=== PATIENT | female | born 1960 | race Caucasian/White ===

== ENCOUNTER 2020-02-25 16:05 | Outpatient (REF) | payer OTHER, SELFPAY ==
--- NOTE | 2020-02-25 16:08 | XR_ITS ---
EXAMINATION: XR CHEST CLINICAL INFORMATION: 59-year-old female patient with chest pain. COMPARISON: Chest x-ray on 06/24/2019. (Normal). TECHNIQUE: PA and lateral erect views of the chest. FINDINGS: The heart remains normal in size. Pulmonary vascularity is normal. Lungs are clear showing no evidence of acute pulmonary parenchymal or pleural disease. IMPRESSION: No acute cardiopulmonary disease.
--- NOTE | 2020-02-25 16:15 | XR_ITS ---
EXAMINATION: XR SHOULDER, RIGHT XR ELBOW, RIGHT CLINICAL INFORMATION: Pain in right shoulder and elbow. COMPARISON: None TECHNIQUE: 3 views of the right shoulder. 3 views of the right elbow. FINDINGS: Right shoulder: There is a mildly impacted fracture of the surgical neck of the right humerus. Nondisplaced greater tuberosity fragment noted. The glenohumeral joint remains aligned, with mild inferior subluxation of the humeral head in relation to the glenoid. Osteophyte formation noted. The acromioclavicular joint is intact. The visualized lung is clear. The visualized ribs are intact. Right elbow: No fracture or dislocation. Alignment is anatomic. Joint spaces are maintained. Enthesophyte formation at the lateral humeral epicondyle. No elbow joint effusion. IMPRESSION: Mildly impacted right humeral neck fracture. No acute abnormality of the right elbow. Enthesophyte formation at the lateral humeral epicondyle. The report will be called to the ordering clinician by a [facility] Workflow Coordinator.
== END 2020-02-25 16:06 | disposition home or self-care (01) ==
LOC: HO.XRAY 16:05
PROVIDERS: PCP Internal Medicine; Visit Provider Nurse Practitioner Family
DX: R07.89 Other chest pain (principal); M25.511 Pain in right shoulder; M25.521 Pain in right elbow
CPT/HCPCS: 71046; 73030; 73080

== ENCOUNTER 2020-03-13 12:17 | Outpatient (REF) | payer OTHER, SELFPAY ==
--- NOTE | 2020-03-13 12:19 | XR_ITS ---
EXAMINATION: XR SHOULDER, RIGHT CLINICAL INFORMATION: Fracture of the shaft of the humerus. COMPARISON: 02/25/2020 TECHNIQUE: Three views of the right shoulder. FINDINGS: Redemonstration of the right humeral neck comminuted fracture. Alignment is unchanged from prior. Fracture lines remain evident. No significant callus formation. The glenohumeral joint is well aligned with small osteophytes. Acromioclavicular joint is intact. The visualized ribs are intact. The visualized lung is clear. XR/XR shoulder RT min 2V IMPRESSION: Unchanged alignment of the right humeral neck fracture. Fracture lines remain evident.
== END 2020-03-13 12:18 | disposition home or self-care (01) ==
LOC: HO.HOSX 12:17
PROVIDERS: Visit Provider Orthopaedic Surgery
DX: S42.309A Unspecified fracture of shaft of humerus, unspecified arm, initial encounter for closed fracture (principal); F17.200 Nicotine dependence, unspecified, uncomplicated; Z79.899 Other long term (current) drug therapy
CPT/HCPCS: 73030

== ENCOUNTER 2020-03-27 16:05 | Outpatient (REF) | payer OTHER, SELFPAY ==
--- NOTE | 2020-03-27 16:13 | CT_ITS ---
EXAMINATION: CT CHEST SCREENING CLINICAL INFORMATION: CT chest 03/22/2019 COMPARISON: None. TECHNIQUE: Multidetector volumetric CT imaging of the chest is performed without contrast using low dose technique. Additional 2D coronal and sagittal reformatted images and axial 3D maximum intensity projection (MIP) images are generated on the CT workstation. This CT examination was performed using dose optimization techniques as appropriate, variously including the following: *Automated exposure control *Adjustment of mA and/or kV according to patient size (this includes techniques or standardized protocols for targeted exams where dose is matched to indication/reason for exam; i.e. extremities or head) *Use of iterative reconstruction technique DLP: 69 mGy-cm FINDINGS: LUNGS: There are multiple pulmonary nodules. The largest pulmonary nodule right upper lobe posterior segment pleural-based measures 5 mm axial image 122/6, stable, there is a 4 mm nodule pleural-based right upper lobe laterally measures 4 mm on axial image 162/6, previously measured 3 mm. There is a 4 mm nodule right lower lobe medial pleural-based image 270/16, previously measured 3 mm. There is a 4 mm largest pulmonary nodule left lower lobe subpleural-based image 352/6, previously measured 3 mm. No large mass or consolidation seen. There is mild paraseptal emphysema. The thyroid lobes are symmetrical and normal. The central trachea and bronchi are widely patent. MEDIASTINUM: Heart size and the great vessels are normal caliber. No pericardial effusion seen. No mass or lymphadenopathy seen. Central trachea and the bronchi widely patent. PLEURA: There is no pleural effusion. No pleural mass or thickening. AXILLA: There are bilateral small shotty lymph nodes. UPPER ABDOMEN: Visualized liver, spleen, pancreas unremarkable. There is a left adrenal 2.4 x 2.1 cm lesion measuring 18 Hounsfield units. OSSEOUS STRUCTURES: No lytic or sclerotic process seen. CT/CT lung screening IMPRESSION: Multiple pulmonary nodules. Some of the nodules appear minimally larger measuring 4 mm that compared to 3 mm. ASSESSMENT: Lung-RADS category 2: Benign RECOMMENDATION: Annual low dose chest CT follow-up.
[2020-03-27 17:03] LABS: Glucose Urine UA NEG (NEG); Leukocyte Esterase Urine NEG (NEG); MANUAL DIFF FLAG NO; Nitrite Urine NEG (NEG); Urine Blood TRACE (NEG); Urine Ketones NEG (NEG); Urine Protein NEG (NEG-TRACE)
[2020-03-27 17:05] LABS: Basophils Percent Auto 0.3 % (0-2); Eosinophils Absolute Auto 0.1 X10*3/uL (0.0-0.4); Eosinophils Percent Auto 1.5 % (0-4); Hematocrit 36.7 % (37-47); Hemoglobin 12.2 g/dl (12.0-16.0); Imm Gran Abs Auto 0.02 X10*3/uL (0.00-0.03); Imm Gran Pct Auto 0.3 % (0.0-0.4); Lymphocytes Absolute Auto 2.2 X10*3/uL (1.2-4.9); Lymphocytes Percent Auto 28.9 % (20-40); Mean Corpuscular HGB Conc 33.2 g/dl (31.0-35.0); Mean Corpuscular Volume 90.4 fL (80-98); Mean Platelet Volume 9.3 fL (9.4-12.3); Monocytes Absolute Auto 0.5 X10*3/uL (0.1-1.2); Monocytes Percent Auto 7.2 % (2-11); Neutrophils Absolute Auto 4.7 X10*3/uL (2.0-8.3); Neutrophils Percent Auto 61.8 % (45-73); Platelet Count 311 X10*3/uL (160-400); Red Blood Count 4.06 X10*6/uL (4.20-5.50); Red Cell Distribution Width 13.3 % (11.0-16.0); White Blood Count 7.5 X10*3/uL (4.8-10.8)
[2020-03-27 17:14] LABS: Appearance Urine CLEAR; Color Urine YELLOW
[2020-03-27 17:25] LABS: Alanine Aminotransferase 15 U/L (0-31); Albumin Level 4.5 g/dL (3.5-5.0); Alkaline Phosphatase 150 U/L (39-117); Anion Gap 15 (12-20); Aspartate Amino Transferase 16 U/L (5-31); Bilirubin Total 0.5 mg/dL (0.0-1.0); Blood Urea Nitrogen 14 mg/dL (9-16); Calcium 8.8 mg/dL (8.4-10.2); Carbon Dioxide 23 mmol/L (22-29); Chloride 107 mmol/L (96-108); Cholesterol 204 mg/dL; Estimated Glomerular Filt Rate > 60; Glucose Fasting 84 mg/dL (60-99); HDL Cholesterol 45 mg/dL; LDL Cholesterol Calculated 134 mg/dl; Potassium 3.9 mmol/l (3.3-5.1); Sodium 141 mmol/L (135-145); Total Protein 7.1 g/dL (6.5-8.0); Triglycerides 127 mg/dL
[2020-03-27 17:39] LABS: Bacteria Urine TRACE /LPF; RBC Urine 0-2 /HPF (0); Squamous Epithelial Cell Urine TRACE /LPF; WBC Urine 0-2 /HPF (0-4)
[2020-03-27 17:46] LABS: Thyroid Stimulating Hormone 1.71 uIU/mL (0.32-4.0)
== END 2020-03-27 16:06 | disposition home or self-care (01) ==
LOC: HO.CT 16:05
PROVIDERS: Absent Provider Internal Medicine; PCP Internal Medicine; Visit Provider Surgery
DX: Z00.00 Encounter for general adult medical examination without abnormal findings (principal); I10 Essential (primary) hypertension; E78.00 Pure hypercholesterolemia, unspecified; K21.9 Gastro-esophageal reflux disease without esophagitis; J45.30 Mild persistent asthma, uncomplicated; F17.210 Nicotine dependence, cigarettes, uncomplicated
CPT/HCPCS: 36415; 71250; 80053; 80061; 81001; 82306; 84443; 85025

== ENCOUNTER → 2020-06-11 10:24 | Outpatient (BNVA) | payer OTHER, SELFPAY | PROVIDERS: PCP Internal Medicine; Visit Provider Internal Medicine Gastroenterology ==

== ENCOUNTER 2020-07-03 10:10 | Day surgery (SDC) | payer OTHER, SELFPAY ==
--- NOTE | 2020-07-01 15:02 | HO.ANESPROP2 ---
Documented by User: Shanell Hernandez 07/01/20 15:03 HPI - Anesthesia Eval Consult details Narrative: 59yo F for Upper Endoscopy with Balloon Dilitation PMFSH Active Problems Active Problems: All Active Problems (Updated 06/29/20 @ 14:44 by Stephanie Cohen) Midsternal chest pain (Acute) Elbow pain, right (Acute) Shoulder pain, right (Acute) Humeral fracture (Acute) GERD without esophagitis (Acute) Esophageal dysphagia (Acute) Schatzki's ring (Acute) Past Medical History Medical History Arthritis Asthmatic bronchitis Depression Former smoker GERD (gastroesophageal reflux disease) Hiatal hernia Hx of fracture of tibia Hyperlipidemia Hypertension Kidney stones PONV (postoperative nausea and vomiting) PUD (peptic ulcer disease) Pulmonary nodule Schatzki's ring Surgical History Surgical History History of breast lump/mass excision History of hemorrhoidectomy History of tubal ligation Hx of colonoscopy Hx of esophagogastroduodenoscopy Social History Social History Household Members: Spouse Alcohol intake: current Alcohol intake frequency: holidays/special occasions only Smoking Status: Current every day smoker Cigarettes Per Day: 5 Years Smoked: 40 Smoked in Last 30 Days: Yes Patient Interested in Nicotine Replacement: No Use of substances other than those prescribed or required for medical reasons: Yes Substance Use Type: Marijuana Advance Directives: No Advance Directives Information Provided: No Current occupational status: unemployed Current occupation: Right [employer]ed Meds Allergies Allergy/AdvReac Type Severity Reaction Status Date / Time aspirin [ASA] Allergy Intermediate GI UPSET Verified 06/29/20 14:33 Home Medications Medication Instructions Recorded Confirmed Last Taken Type ibuprofen 800 mg tablet 800 mg PO TID 02/25/20 06/29/20 Unknown History lisinopril 10 mg tablet 10 mg PO DAILY 02/25/20 06/29/20 Unknown History trazodone 50 mg tablet 50 mg PO BEDTIME 02/25/20 06/29/20 Unknown History clotrimazole-betamethasone 1 1 applic TOPICAL BID PRN 03/13/20 06/29/20 Unknown History %-0.05 % topical cream pantoprazole 40 mg tablet,delayed mg PO 06/11/20 06/11/20 07/03/20 07:30 History release Symbicort 07/03/20 07/03/20 Unknown History Exam Exam Date and Time: July 01, 2020 1502 Pertinent Lab Results Pertinent Lab Results: Laboratory Tests 03/27/20 03/27/20 16:36 16:36 WBC 7.5 Hgb 12.2 Hct 36.7 L Plt Count 311 Sodium 141 Potassium 3.9 Chloride 107 Carbon Dioxide 23 BUN 14 Creatinine 0.72 Assessment and Plan Assessment Anesthesia Assessment: Chart Reviewed Documented by User: Rajeev Contreras MD 07/03/20 10:57 PMFSH Past Medical History Medical History Arthritis Asthmatic bronchitis Depression Former smoker GERD (gastroesophageal reflux disease) Hiatal hernia Hx of fracture of tibia Hyperlipidemia Hypertension Kidney stones PONV (postoperative nausea and vomiting) PUD (peptic ulcer disease) Pulmonary nodule Schatzki's ring Surgical History Surgical History History of breast lump/mass excision History of hemorrhoidectomy History of tubal ligation Hx of colonoscopy Hx of esophagogastroduodenoscopy Social History Social History Household Members: Spouse Alcohol intake: current Alcohol intake frequency: holidays/special occasions only Smoking Status: Current every day smoker Cigarettes Per Day: 5 Years Smoked: 40 Smoked in Last 30 Days: Yes Patient Interested in Nicotine Replacement: No Use of substances other than those prescribed or required for medical reasons: Yes Substance Use Type: Marijuana Advance Directives: No Advance Directives Information Provided: No Current occupational status: unemployed Current occupation: Right Handed Meds Allergies Allergy/AdvReac Type Severity Reaction Status Date / Time aspirin [ASA] Allergy Intermediate GI UPSET Verified 06/29/20 14:33 Home Medications Medication Instructions Recorded Confirmed Last Taken Type ibuprofen 800 mg tablet 800 mg PO TID 02/25/20 06/29/20 Unknown History lisinopril 10 mg tablet 10 mg PO DAILY 02/25/20 06/29/20 Unknown History trazodone 50 mg tablet 50 mg PO BEDTIME 02/25/20 06/29/20 Unknown History clotrimazole-betamethasone 1 1 applic TOPICAL BID PRN 03/13/20 06/29/20 Unknown History %-0.05 % topical cream pantoprazole 40 mg tablet,delayed mg PO 06/11/20 06/11/20 07/03/20 07:30 History release Symbicort 07/03/20 07/03/20 Unknown History Exam Airway Mallampati Class: III TM Dist: >3cm Neck ROM: Full Loose/Missing/Broken Teeth: Yes (Left incisor broken, poor dentition, mosty missing teeth) Heart: Sinus tach Lungs: NL Assessment and Plan Assessment Anesthesia Assessment: Anesthesia Plan Discussed (SBP 180/90; 170/80 after anxiolysis. Counseled pt regarding risk of [place], stroke; wants to proceed), Smoking Cess. Discussed and Chart Reviewed Final Anesthetic Review NPO: Yes ASA Class: III Final Preanesthetic Review: No Changes in Pt Med Stat, Meds/Allgs Chart Reviewed, Consent Obtained/Reviewed and Anes Risks/Benef Reviewed Patient Risk: High Procedure Risk: Low Anesthetic Plan Anesthetic Plan: MAC: Disposition: Standard PACU
--- NOTE | 2020-07-03 10:40 | P.OP_ITS ---
Operative Note Operative Note Date of Service: 07/03/20 Narrative: Pre-op diagnosis: Dysphagia, history of Schatzki's ring Post-op diagnosis: same Procedure: FLEXIBLE TRANSORAL UPPER GASTROINTESTINAL ENDOSCOPY WITH BIOPSY AND ESOPHAGEAL BALLOON DILATION Consent: Indications for the procedure and potential complications of bleeding, perforation, reaction to medications and missed diagnosis were discussed with the patient and informed consent was obtained. Instrument: Olympus GIF H 190 mid size upper endoscope Monitoring: Vital signs and clinical assessment, continuous EKG monitoring, Pulse oximetry, Carbon Dioxide monitoring and blood pressure monitoring were done throughout the procedure. Procedure: The patient was placed in the left lateral decubitis position and pre-procedure medications were administered and a bite block was placed. The endoscope was inserted into the mouth and advanced under direct vision to the third part of duodenum. A careful inspection was made as the upper endoscope was withdrawn including a retroflexed examination of the proximal stomach; Findings and interventions are described below. Findings: Larynx: Normal Esophagus: Tortuous esophagus with increased tertiary contractions. GE junction at 32 cms, hiatal hernia 32 to 35 cms. A partially obstructing Schatzki's ring at GE junction - dilated with 19 and 20 mm (60 F) with a CRE balloon - for 60 seconds at each level. Biopsies were obtained from the area of the ring to help disrupt the Schatzki's ring. Stomach: Mild gastric erythema with scattered antral erosions - (biopsied during previous EGD). Grade 3 flap valve on retroflexed examination of the cardia. Duodenum: Normal bulb and descending duodenum Intervention: Esophageal dilation was performed with a CRE balloon at 19 and 20 mm for 60 seconds at each level. Biopsies as noted above Impression and Post Procedure Diagnosis: Endoscopy Findings: ESOPHAGUS: Tortuous esophagus with increased tertiary contractions. GE junction at 32 cms, hiatal hernia 32 to 35 cms. A partially obstructing Schatzki's ring at GE junction - dilated to 20 mm (60 F) with a CRE balloon. STOMACH: Antral gastritis with erosions. Plan: Await pathology results Patient has an appointment on 07/20/20 in the GI Clinic with Dionte Canales M.D.- . Above findings were reviewed with the patient and GERD handout was given in the discharge area Surgeon: Dionte Canales MD Anesthesia: MAC (Dr Contreras) Estimated blood loss (mL): 0 Pathology: other (A. Distal esophagus) Condition: stable Disposition: PACU
--- NOTE | 2020-07-03 10:40 | MHC.SHP ---
Pre-Procedural Eval Section A The patient is an INPATIENT: No The History & Physical has been completed within 30 days and I have reviewed it.: Yes Section B Chief Complaint: dysphagia Details of Present Illness: dysphagia Allergies: Allergies Allergy/AdvReac Type Severity Reaction Status Date / Time aspirin [ASA] Allergy Intermediate GI UPSET Verified 06/29/20 14:33 Review of Systems Sugical H&P ROS: Negative: Constitution and Cardiovascular and Yes, Specify: Respiratory (Cough) and Gastrointestinal (Dysphagia) Exam Surgical H&P Exam: Normal: Heart, Normal: Lungs, Normal: Extremities and Normal: Abdomen Plan Diagnosis/Plan: Unchanged I have reviewed the history and physical and performed a pertinent physical examination on my patient. No changes have occurred unless specified.
[2020-07-03 10:41] VITALS: BP 174/96; PULSE 94; RESP 16; TEMP 36.4; O2SAT 98; BMI 34.0
[2020-07-03] MEDS: Lactated Ringers 1,000 ML 100 ML IVCONT (10:51)
[2020-07-03 11:25] VITALS: BP 137/78; PULSE 89; RESP 16; TEMP 36.1; O2SAT 96
[2020-07-03 11:40] VITALS: BP 161/84; PULSE 84; RESP 18; TEMP 36.2; O2SAT 98
== END 2020-07-03 12:00 | disposition home or self-care (01) ==
PROVIDERS: PCP Internal Medicine; Visit Provider Internal Medicine Gastroenterology
PROC: (CPT 43249; principal; 2020-07-03 11:50)
DX: K22.2 Esophageal obstruction (principal); K29.70 Gastritis, unspecified, without bleeding; K25.9 Gastric ulcer, unspecified as acute or chronic, without hemorrhage or perforation; K44.9 Diaphragmatic hernia without obstruction or gangrene; K21.9 Gastro-esophageal reflux disease without esophagitis; J45.909 Unspecified asthma, uncomplicated; I10 Essential (primary) hypertension; R91.1 Solitary pulmonary nodule; Z88.8 Allergy status to other drugs, medicaments and biological substances; Z79.899 Other long term (current) drug therapy; Z87.891 Personal history of nicotine dependence
CPT/HCPCS: 43249; 43239; 88305; C1726; J2250

== ENCOUNTER → 2020-07-20 10:23 | Outpatient (BNVA) | payer OTHER, SELFPAY | PROVIDERS: PCP Internal Medicine; Visit Provider Internal Medicine Gastroenterology ==

== ENCOUNTER 2020-08-11 09:22 | Day surgery (SDC) | payer OTHER, SELFPAY ==
[2020-08-05 13:40] VITALS: BMI 34.9
--- NOTE | 2020-08-10 09:41 | P.CONAN_ITS ---
Documented by User: Shanell Hernandez 08/10/20 09:43 HPI - Anesthesia Eval Consult details Narrative: 59yo F for Upper Endoscopy with Balloon Dilation s/p EGD with dilation 06/2020 with MAC [facility] Active Problems Active Problems: All Active Problems (Updated 06/29/20 @ 14:44 by Stephanie Cohen) Midsternal chest pain (Acute) Elbow pain, right (Acute) Shoulder pain, right (Acute) Humeral fracture (Acute) GERD without esophagitis (Acute) Esophageal dysphagia (Acute) Schatzki's ring (Acute) Past Medical History Medical History Arthritis Asthmatic bronchitis Depression Former smoker GERD (gastroesophageal reflux disease) Hiatal hernia Hx of fracture of tibia Hyperlipidemia Hypertension Kidney stones PONV (postoperative nausea and vomiting) PUD (peptic ulcer disease) Pulmonary nodule Schatzki's ring Family History Family History Mother HTN (hypertension) COPD (chronic obstructive pulmonary disease) Surgical History Surgical History History of breast lump/mass excision History of hemorrhoidectomy History of tubal ligation Hx of colonoscopy Hx of esophagogastroduodenoscopy Social History Social History Household Members: Spouse Alcohol intake: current Alcohol intake frequency: a few times a week Smoking Status: Current every day smoker Tobacco Type: Cigarette Cigarettes Per Day: 6 Years Smoked: 40 Substance Use Type: Marijuana Advance Directives: No Advance Directives Information Provided: No Advance Directives on File: No Current occupational status: unemployed Current occupation: Right [employer] Meds Allergies Allergy/AdvReac Type Severity Reaction Status Date / Time aspirin [ASA] Allergy Intermediate GI UPSET Verified 07/20/20 10:24 Home Medications Medication Instructions Recorded Confirmed Last Taken Type ibuprofen 800 mg tablet 800 mg PO TID 02/25/20 08/05/20 Unknown History lisinopril 10 mg tablet 10 mg PO DAILY 02/25/20 08/05/20 08/11/20 History trazodone 50 mg tablet 50 mg PO BEDTIME 02/25/20 08/05/20 Unknown History clotrimazole-betamethasone 1 1 applic TOPICAL BID PRN 03/13/20 08/05/20 Unknown History %-0.05 % topical cream pantoprazole 40 mg tablet,delayed mg PO 06/11/20 07/20/20 08/11/20 History release budesonide-formoterol [Symbicort] 2 puff INHALATION BID 08/05/20 08/05/20 Unknown History Exam Exam Date and Time: August 10, 2020940 Height,Weight and Vital Signs: Height 5 ft Weight 81 kg Assessment and Plan Assessment Anesthesia Assessment: Chart Reviewed Documented by User: Anna Mckoy 08/11/20 11:09 [facility] Past Medical History Medical History Arthritis Asthmatic bronchitis Depression Former smoker GERD (gastroesophageal reflux disease) Hiatal hernia Hx of fracture of tibia Hyperlipidemia Hypertension Kidney stones PONV (postoperative nausea and vomiting) PUD (peptic ulcer disease) Pulmonary nodule Schatzki's ring Family History Family History Mother HTN (hypertension) COPD (chronic obstructive pulmonary disease) Surgical History Surgical History History of breast lump/mass excision History of hemorrhoidectomy History of tubal ligation Hx of colonoscopy Hx of esophagogastroduodenoscopy Social History Social History Household Members: Spouse Alcohol intake: current Alcohol intake frequency: a few times a week Smoking Status: Current every day smoker Tobacco Type: Cigarette Cigarettes Per Day: 6 Years Smoked: 40 Substance Use Type: Marijuana Advance Directives: No Advance Directives Information Provided: No Advance Directives on File: No Current occupational status: unemployed Current occupation: Right [employer] Meds Allergies Allergy/AdvReac Type Severity Reaction Status Date / Time aspirin [ASA] Allergy Intermediate GI UPSET Verified 07/20/20 10:24 Home Medications Medication Instructions Recorded Confirmed Last Taken Type ibuprofen 800 mg tablet 800 mg PO TID 02/25/20 08/05/20 Unknown History lisinopril 10 mg tablet 10 mg PO DAILY 02/25/20 08/05/20 08/11/20 History trazodone 50 mg tablet 50 mg PO BEDTIME 02/25/20 08/05/20 Unknown History clotrimazole-betamethasone 1 1 applic TOPICAL BID PRN 03/13/20 08/05/20 Unknown History %-0.05 % topical cream pantoprazole 40 mg tablet,delayed mg PO 06/11/20 07/20/20 08/11/20 History release budesonide-formoterol [Symbicort] 2 puff INHALATION BID 08/05/20 08/05/20 Unknown History Exam Airway Mallampati Class: II TM Dist: >3cm Neck ROM: Full Loose/Missing/Broken Teeth: Yes Assessment and Plan Assessment Anesthesia Assessment: Anesthesia Plan Discussed and Chart Reviewed Final Anesthetic Review NPO: Yes ASA Class: III Final Preanesthetic Review: No Changes in Pt Med Stat, Meds/Allgs Chart Reviewed, Consent Obtained/Reviewed and Anes Risks/Benef Reviewed Patient Risk: Intermediate Procedure Risk: Low Assessment/Block/Sedation in SS: Assess/Block/Sedation-SS Anesthetic Plan Anesthetic Plan: MAC: Disposition: Standard PACU
[2020-08-11] MEDS: Lactated Ringers 1,000 ML 100 ML IVCONT (09:43)
[2020-08-11 09:47] VITALS: BP 194/89; PULSE 98; RESP 20; TEMP 37.1; O2SAT 98
--- NOTE | 2020-08-11 10:28 | P.OP_ITS ---
Operative Note Operative Note Date of Service: 08/11/20 Narrative: Pre-op diagnosis: Dysphagia, suspected persistent/recurrent Schatzki's ring post balloon dilation, Post-op diagnosis: other (Esophageal motility disorder, gastritis) Procedure: FLEXIBLE TRANSORAL UPPER GASTROINTESTINAL ENDOSCOPY WITH ESOPHAGEAL DILATION OVER A GUIDE WIRE Consent: Indications for the procedure and potential complications of bleeding, perforation, reaction to medications and missed diagnosis were discussed with the patient and informed consent was obtained. Instrument: Olympus GIF H 190 mid size upper endoscope Monitoring: Vital signs and clinical assessment, continuous EKG monitoring, Pulse oximetry, Carbon Dioxide monitoring and blood pressure monitoring were done throughout the procedure. Procedure: The patient was placed in the left lateral decubitis position and pre-procedure medications were administered and a bite block was placed. The endoscope was inserted into the mouth and advanced under direct vision to the third part of duodenum. A careful inspection was made as the upper endoscope was withdrawn including a retroflexed examination of the proximal stomach; Findings and interventions are described below. Findings: Larynx: Normal Esophagus: GE junction at 32 cms, hiatal hernia 32 to 35 cms. No Schatzki's ring was visualized.. Dilation was performed with a 20 mm savory dilator with moderate resistance on passage of the dilator. Stomach: Mild gastric erythema. Biopsies were obtained. Grade 2 flap valve on retroflexed examination of the cardia. Duodenum: Normal bulb and descending duodenum Intervention: Biopsies and esophageal dilation with a savory dilator to 20 mm (60 F) as noted above Impression and Post Procedure Diagnosis: Endoscopy Findings: ESOPHAGUS: GE junction at 32 cms, hiatal hernia 32 to 35 cms. No Schatzki's ring was visualized - likely ruptured with balloon dilation during the previous EGD. Empiric dilation was performed with a 20 mm savory dilator with moderate resistance on passage of the dilator. STOMACH: Gastritis Plan: Await pathology results Patient has an appointment on 08/13/20 in the GI Clinic with Dionte Canales M.D. Above findings were reviewed with the patient and handout on Chronic Dysphagia was given in the discharge area Surgeon: Dionte Canales MD Anesthesia: MAC (Irene Castelan) Oncology Technician: Mabel Javier Estimated blood loss (mL): 0 Pathology: none sent Condition: stable Disposition: PACU
--- NOTE | 2020-08-11 10:28 | MHC.SHP ---
Pre-Procedural Eval Section A The patient is an INPATIENT: No Changes since office visit: Yes Patient answered all questions; No Cold of Flu in the past 2 weeks, No New Medical Problems and No Changes in Medication The History & Physical has been completed within 30 days and I have reviewed it.: Yes Section B Chief Complaint: Dysphagia Allergies: Allergies Allergy/AdvReac Type Severity Reaction Status Date / Time aspirin [ASA] Allergy Intermediate GI UPSET Verified 07/20/20 10:24 Review of Systems Sugical H&P ROS: Negative: Cardiovascular and Respiratory and Yes, Specify: Gastrointestinal (Dysphagia) Exam Surgical H&P Exam: Normal: Heart, Normal: Lungs, Normal: Extremities and Normal: Abdomen Plan Diagnosis/Plan: Unchanged I have reviewed the history and physical and performed a pertinent physical examination on my patient. No changes have occurred unless specified.
[2020-08-11 12:03] VITALS: BP 144/68; PULSE 74; RESP 16; TEMP 36.3; O2SAT 100
[2020-08-11] MEDS: Albuterol Sulfate (0.083%) 2.5 MG/3 ML VIAL.NEB INHALE (12:14)
[2020-08-11 12:15] VITALS: PULSE 72; O2SAT 100
[2020-08-11 12:21] VITALS: BP 161/68; PULSE 73; RESP 16; O2SAT 98
== END 2020-08-11 12:49 | disposition home or self-care (01) ==
PROVIDERS: PCP Internal Medicine; Visit Provider Internal Medicine Gastroenterology
PROC: (CPT 43248; principal; 2020-08-11 11:00)
DX: K22.4 Dyskinesia of esophagus (principal); K29.50 Unspecified chronic gastritis without bleeding; K44.9 Diaphragmatic hernia without obstruction or gangrene; K21.9 Gastro-esophageal reflux disease without esophagitis; K27.9 Peptic ulcer, site unspecified, unspecified as acute or chronic, without hemorrhage or perforation; I10 Essential (primary) hypertension; J45.909 Unspecified asthma, uncomplicated; R91.1 Solitary pulmonary nodule; Z87.891 Personal history of nicotine dependence; Z79.51 Long term (current) use of inhaled steroids; Z79.899 Other long term (current) drug therapy
CPT/HCPCS: 43248; 94640; C1769; J3010

== ENCOUNTER → 2020-08-13 11:56 | Outpatient (BNVA) | payer OTHER, SELFPAY | PROVIDERS: PCP Internal Medicine; Visit Provider Internal Medicine Gastroenterology ==

== ENCOUNTER 2020-10-30 07:07 | Day surgery (SDC) | payer OTHER, SELFPAY ==
[2020-10-26 08:38] VITALS: BMI 34.9
[2020-10-30 07:28] VITALS: BP 129/72; PULSE 105; RESP 18; TEMP 37.1; O2SAT 98
--- NOTE | 2020-10-30 07:35 | P.OP_ITS ---
Operative Note Operative Note Date of Service: 10/30/20 Narrative: Pre-op diagnosis: Colon cancer screening, history of colon polyps Post-op diagnosis: other (Colon polyps, diverticulosis, hemorrhoids) Procedure: COLONOSCOPY TILL CECUM WITH BIOPSIES AND SNARE POLYPECTOMY Consent: Indications for the procedure and potential complications of bleeding, perforation, reaction to medications and missed diagnosis were discussed with the patient and informed consent was obtained. Instrument: Olympus PCF H 190 L variable stiffness pediatric colonoscope Monitoring: Vital signs and clinical assessment, intermittent blood pressure monitoring, continuous EKG monitoring, Pulse oximetry and Carbon Dioxide monitoring were done throughout the procedure. Colon withdrawl time was 25 minutes. Procedure: The patient was placed in the left lateral decubitis position and pre-procedure medications were administered. After a digital rectal examination of the ano-rectum, the video colonoscope was inserted into the rectum and advanced through the colon to the cecum. The colonoscope was slowly withdrawn in a retrograde panoramic fashion and the colon mucosa was carefully examined including a retroflexed view of the rectum. Findings and interventions are described below. Procedure Difficulty: Without difficulty Findings: Terminal Ileum: Not evaluated Cecum: Normal Ascending Colon: A 10 mm sessile polyp in the proximal ascending colon removed with a cold snare - polyp was not retrieved Transverse Colon: A 12-15 mm sessile polyp removed with a hot snare Descending Colon: Moderate diverticulosis Sigmoid Colon: A 10 mm diminutive appearing polyp which was biopsied. A 12-15 mm sessile polyp removed with a hot snare. Severe diverticulosis with luminal narrowing. Rectum: Normal Ano-rectum: Small internal hemorrhoids Colon preparation: Good after copious irrigation. Impression and Post Procedure Diagnosis: Colonoscopy Findings: Three polyps removed - one polyp not retrieved. A diminutive appearing polyp biopsied in the sigmoid colon. Moderate to severe diverticulosis seen in the left colon Small hemorrhoids on retroflexed exam. Plan: Await pathology results Patient has an appointment on 11/12/20 in the GI Clinic with Dionte Canales M.D.. Repeat Colonoscopy interval based on path results - in 3 years if polyps are adenomatous and due to a history of adenomatous colon polyps. Above findings were reviewed with the patient and colon polyps and diverticulosis handouts were given in the discharge area Surgeon: Dionte Canales MD Anesthesia: MAC (Karen Dacosta CRNA) Was an Survey And Mapping Technician used for this Procedure?: Yes Survey And Mapping Technician: Reshma Powell Estimated blood loss (mL): 0 Pathology: other (A- TRANSVERSE COLON POLYP B- SIGMOID COLON POLYP C- SIGMOID COLON POLYP AT 20CMS) Condition: stable Disposition: PACU
--- NOTE | 2020-10-30 07:35 | MHC.SHP ---
Pre-Procedural Eval Section A Date of Service: 10/30/20 The patient is an INPATIENT: No The History & Physical has been completed within 30 days and I have reviewed it.: No Section B Chief Complaint: Screening Details of Present Illness: colon cancer screening Relevant Family History (Specify if Yes): No Relevant Social History: Tobacco Use Present Medications: see Short Stay Collaborative assessment Medical History: Significant History (Arthritis Asthmatic bronchitis Depression Former smoker GERD (gastroesophageal reflux disease) Hiatal hernia Hx of fracture of tibia Hyperlipidemia Hypertension Kidney stones PONV (postoperative nausea and vomiting) PUD (peptic ulcer disease) Pulmonary nodule Schatzki's ring) History of Previous Operations: Relevant previous surgery/procedure and date(s) (H/O endoscopy History of breast lump/mass excision History of hemorrhoidectomy History of tubal ligation Hx of colonoscopy Hx of esophagogastroduodenoscopy) Allergies: Allergies Allergy/AdvReac Type Severity Reaction Status Date / Time aspirin [ASA] Allergy Intermediate GI UPSET Verified 10/30/20 07:27 Review of Systems Sugical H&P ROS: Negative: Constitution, Cardiovascular and Respiratory and Yes, Specify: Gastrointestinal (dysphagia) Exam Surgical H&P Exam: Normal: Heart, Normal: Lungs, Normal: Extremities and Normal: Abdomen Plan Diagnosis/Plan: Unchanged I have reviewed the history and physical and performed a pertinent physical examination on my patient. No changes have occurred unless specified.
--- NOTE | 2020-10-30 07:49 | HO.ANESPROP2 ---
[facility] Active Problems Active Problems: All Active Problems (Updated 08/13/20 @ 13:21 by Dionte Canales MD) Midsternal chest pain (Acute) Elbow pain, right (Acute) Shoulder pain, right (Acute) Humeral fracture (Acute) GERD without esophagitis (Acute) Esophageal dysphagia (Acute) Schatzki's ring (Acute) Colon cancer screening (Acute) Past Medical History Medical History Arthritis Asthmatic bronchitis Depression Former smoker GERD (gastroesophageal reflux disease) Hiatal hernia Hx of fracture of tibia Hyperlipidemia Hypertension Kidney stones PONV (postoperative nausea and vomiting) PUD (peptic ulcer disease) Pulmonary nodule Schatzki's ring Family History Family History Mother HTN (hypertension) COPD (chronic obstructive pulmonary disease) Surgical History Surgical History H/O endoscopy History of breast lump/mass excision History of hemorrhoidectomy History of tubal ligation Hx of colonoscopy Hx of esophagogastroduodenoscopy Social History Social History Household Members: Spouse Alcohol intake: current Alcohol intake frequency: a few times a week Patient Tobacco Use Status: Former Tobacco user Cigarettes Per Day: 6 Years Smoked: 40 Use of substances other than those prescribed or required for medical reasons: Yes Substance Use Type: Marijuana Are you DNR?: No Advance Directives: No Advance Directives Information Provided: Yes Current occupational status: unemployed 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 occupation: Right Handed Meds Allergies Allergy/AdvReac Type Severity Reaction Status Date / Time aspirin [ASA] Allergy Intermediate GI UPSET Verified 10/30/20 07:27 Home Medications Medication Instructions Recorded Confirmed Last Taken Type ibuprofen 800 mg tablet 800 mg PO TID 02/25/20 10/26/20 Unknown History lisinopril 10 mg tablet 10 mg PO DAILY 02/25/20 10/26/20 08/11/20 History trazodone 50 mg tablet 50 mg PO BEDTIME 02/25/20 10/26/20 Unknown History clotrimazole-betamethasone 1 1 applic TOPICAL BID PRN 03/13/20 10/26/20 Unknown History %-0.05 % topical cream pantoprazole 40 mg tablet,delayed 40 mg PO DAILY 06/11/20 10/26/20 10/30/20 04:45 History release budesonide-formoterol [Symbicort] 2 puff INHALATION BID 08/05/20 10/26/20 Unknown History cholecalciferol (vitamin D3) 50 50 mcg PO DAILY 08/13/20 10/26/20 Unknown History mcg (2,000 unit) capsule Exam Exam Date and Time: October 30, 2020 0749 Height,Weight and Vital Signs: Height 5 ft Weight 81 kg Last Vital Signs Temp 98.8 F 10/30/20 07:28 Pulse 105 H 10/30/20 07:28 Resp 18 10/30/20 07:28 BP 129/72 10/30/20 07:28 Pulse Ox 98 10/30/20 07:28 Airway Mallampati Class: II TM Dist: >3cm Loose/Missing/Broken Teeth: Upper
[2020-10-30] MEDS: Lactated Ringers 1,000 ML 100 ML IVCONT (07:55)
[2020-10-30 08:58] VITALS: BP 94/53; PULSE 97; RESP 14; TEMP 36.9; O2SAT 96
[2020-10-30 09:13] VITALS: BP 105/65; PULSE 89; RESP 14; TEMP 36.9; O2SAT 98
== END 2020-10-30 09:48 | disposition home or self-care (01) ==
PROVIDERS: PCP Internal Medicine; Visit Provider Internal Medicine Gastroenterology
PROC: 0DJD8ZZ Inspection of Lower Intestinal Tract, Via Natural or Artificial Opening Endoscopic (ICD-10-PCS; CPT 45378; principal; 2020-10-30 08:30)
DX: Z12.11 Encounter for screening for malignant neoplasm of colon (principal); Z86.010 Personal history of colon polyps; D12.3 Benign neoplasm of transverse colon; D12.5 Benign neoplasm of sigmoid colon; K57.30 Diverticulosis of large intestine without perforation or abscess without bleeding; K64.8 Other hemorrhoids; K21.9 Gastro-esophageal reflux disease without esophagitis; K27.9 Peptic ulcer, site unspecified, unspecified as acute or chronic, without hemorrhage or perforation; I10 Essential (primary) hypertension; J45.909 Unspecified asthma, uncomplicated; E78.5 Hyperlipidemia, unspecified; R91.1 Solitary pulmonary nodule; Z79.899 Other long term (current) drug therapy; Z88.8 Allergy status to other drugs, medicaments and biological substances; Z87.891 Personal history of nicotine dependence
CPT/HCPCS: 45385; 45380; 88305; J2405; J2765

== ENCOUNTER → 2020-11-23 08:37 | Outpatient (BNVA) | payer OTHER, SELFPAY | PROVIDERS: PCP Internal Medicine; Visit Provider Internal Medicine Gastroenterology ==

== ENCOUNTER 2021-07-10 09:58 | Outpatient (REF) | payer OTHER, SELFPAY ==
--- NOTE | ~2021-07-10 | MM_ITS ---
EXAMINATION: MM SCREENING DIGITAL BREAST TOMOSYNTHESIS, BILATERAL CLINICAL INFORMATION: Screening. Asymptomatic. The lifetime risk of breast cancer based on the Tyrer-Cuzick Model is 5%. COMPARISON: Mammography: 10/25/2019, 07/20/2018, 06/16/2017 TECHNIQUE: Digital breast tomosynthesis is performed in both the craniocaudal and mediolateral oblique views along with computer-aided detection (CAD). Synthesized 2D images are generated from the tomosynthesis. FINDINGS: There are scattered areas of fibroglandular density (ACR BI-RADS breast composition Category b). There are no significant masses, abnormal calcifications, or other abnormalities. Parenchymal pattern is similar to prior studies. There is no developing density or architectural abnormality. The axilla and skin contours are unremarkable. No significant changes. MM/MM tomosynthesis screening BI IMPRESSION: No mammographic evidence of malignancy. ASSESSMENT: BI-RADS 1: Negative RECOMMENDATION: Routine annual mammography screening. This patient's information was entered into a reminder system with a target due date for their next mammogram.
[2021-07-10 10:57] LABS: MANUAL DIFF FLAG NO
[2021-07-10 11:43] LABS: Appearance Urine HAZY; Color Urine YELLOW; Glucose Urine UA NEG (NEG); Leukocyte Esterase Urine NEG (NEG); Nitrite Urine NEG (NEG); Specific Gravity - Urine >= 1.030 (1.005-1.025); Urine Blood 3+ (NEG); Urine Ketones NEG (NEG); Urine Protein TRACE MG/DL (NEG-TRACE)
[2021-07-10 11:53] LABS: Mucus Urine 1+ /LPF; RBC Urine 30-49 /HPF (0); Squamous Epithelial Cell Urine 2+ /LPF; WBC Urine 0 /HPF (0-4)
[2021-07-10 11:54] LABS: Bacteria Urine TRACE /LPF
[2021-07-10 11:54] LABS: Basophils Absolute Auto 0.1 X10*3/uL (0.0-0.2); Basophils Percent Auto 0.7 % (0-2); Eosinophils Absolute Auto 0.2 X10*3/uL (0.0-0.4); Eosinophils Percent Auto 1.7 % (0-4); Hematocrit 40.3 % (37.0-47.0); Hemoglobin 12.8 g/dl (12.0-16.0); Imm Gran Abs Auto 0.06 X10*3/uL (0.00-0.03); Imm Gran Pct Auto 0.6 % (0.0-0.4); Mean Corpuscular HGB Conc 31.8 g/dl (31.0-35.0); Mean Corpuscular Hemoglobin 29.4 pg (27.0-33.0); Mean Corpuscular Volume 92.6 fL (80.0-98.0); Mean Platelet Volume 9.6 fL (9.4-12.3); Monocytes Absolute Auto 0.8 X10*3/uL (0.1-1.2); Monocytes Percent Auto 7.5 % (2-11); Neutrophils Absolute Auto 7.3 x10*3/uL (2.0-8.3); Neutrophils Percent Auto 70.5 % (45-73); Platelet Count 350 X10*3/uL (160-400); Red Blood Count 4.35 X10*6/uL (4.20-5.50); White Blood Count 10.4 X10*3/uL (4.8-10.8)
[2021-07-10 12:03] LABS: Alanine Aminotransferase 13 U/L (0-31); Albumin Level 4.4 g/dL (3.5-5.0); Alkaline Phosphatase 122 U/L (39-117); Anion Gap 16 (12-20); Aspartate Amino Transferase 18 U/L (5-31); Bilirubin Total 0.5 mg/dL (0.0-1.0); Blood Urea Nitrogen 20 mg/dL (9-16); Calcium 9.6 mg/dL (8.4-10.2); Carbon Dioxide 22 mmol/L (22-29); Chloride 106 mmol/L (96-108); Cholesterol 217 mg/dL; Estimated Glomerular Filt Rate > 60; Glucose Fasting 81 mg/dL (60-99); HDL Cholesterol 52 mg/dL; LDL Cholesterol Calculated 140 mg/dl; Potassium 4.6 mmol/L (3.3-5.1); Sodium 139 mmol/L (135-145); Total Protein 7.3 g/dL (6.5-8.0); Triglycerides 126 mg/dL
[2021-07-10 12:24] LABS: Thyroid Stimulating Hormone 1.79 uIU/mL (0.32-4.0)
== END 2021-07-10 09:59 | disposition home or self-care (01) ==
LOC: HO.MAMMO 09:58
PROVIDERS: PCP Internal Medicine; Visit Provider Internal Medicine
DX: Z00.00 Encounter for general adult medical examination without abnormal findings (principal); Z12.31 Encounter for screening mammogram for malignant neoplasm of breast; I10 Essential (primary) hypertension; E78.00 Pure hypercholesterolemia, unspecified; K21.9 Gastro-esophageal reflux disease without esophagitis; J45.30 Mild persistent asthma, uncomplicated; E55.9 Vitamin D deficiency, unspecified; F51.04 Psychophysiologic insomnia
CPT/HCPCS: 36415; 77063; 77067; 80053; 80061; 81001; 82306; 84443; 85025

== ENCOUNTER 2021-09-17 | Outpatient (REF) | payer OTHER, SELFPAY | END 2021-09-17 00:01 | disposition home or self-care (01) | LOC: HO.LNP | DX: R31.9 Hematuria, unspecified (principal) | CPT/HCPCS: 88112 ==

== ENCOUNTER 2021-09-17 15:21 | Outpatient (REF) | payer OTHER, SELFPAY ==
[2021-09-17 16:52] LABS: Urine Cytology See Pathology rpt
== END 2021-09-17 15:22 | disposition home or self-care (01) ==
LOC: CF 15:21
PROVIDERS: PCP Internal Medicine
DX: R32 Unspecified urinary incontinence (principal)
CPT/HCPCS: 51798

== ENCOUNTER 2021-11-12 14:51 | Outpatient (REF) | payer OTHER, SELFPAY ==
--- NOTE | ~2021-11-12 | US_ITS ---
EXAMINATION: US RETROPERITONEAL LIMITED (RENAL ONLY) CLINICAL INFORMATION: Other symptoms and signs involving the genitourinary system. COMPARISON: CT abdomen and pelvis 01/16/2018. Ultrasound abdomen complete 01/27/2015. TECHNIQUE: Real-time imaging of the kidneys. FINDINGS: RIGHT KIDNEY: 10.8 x 4.7 x 5.1 cm (SAG x AP x TRV). The kidney is normal in size, contour, and echogenicity. Renal cortical thickness is normal. No focal parenchymal lesions or hydronephrosis. There are multiple echogenic renal calculi. Midpole calculi measure 0.34 x 0.30 x 0.26 cm and 0.50 x 0.40 x 0.55 cm. Upper pole echogenic renal calculi measure 0.40 x 0.40 x 0.25 cm and 0.30 x 0.40 x 0.5 cm. There is no caliectasis or hydronephrosis. LEFT KIDNEY: 11.1 x 4.0 x 6.6 cm (SAG x AP x TRV). The kidney is normal in size, contour, and echogenicity. Renal cortical thickness is normal. No hydronephrosis. There are several echogenic calculi. Upper pole calculi measures 2.0 x 1.5 x 2.0 cm, 0.33 x 0.50 x 0.56 cm and 0.43 x 0.42 x 0.51 cm. Midpole echogenic calculi measure 0.70 x 0.35 x 0.55 cm and 0.24 x 0.27 cm x 0.22 cm. Lower pole echogenic calculi measure 0.43 x 0.43 x 0.41 cm. No focal caliectasis visualized. US/US renal BI IMPRESSION: Bilateral nonobstructive echogenic renal calculi. No caliectasis or hydronephrosis.
== END 2021-11-12 14:52 | disposition home or self-care (01) ==
LOC: HO.US 14:51
PROVIDERS: PCP Internal Medicine
DX: R39.89 Other symptoms and signs involving the genitourinary system (principal)
CPT/HCPCS: 76775; 87086

== ENCOUNTER 2021-12-06 13:58 | Day surgery (SDC) | payer OTHER, SELFPAY ==
[2021-11-30 15:28] VITALS: BMI 34.9
--- NOTE | 2021-12-03 08:51 | P.CONAN_ITS ---
Documented by User: Shanell Hernandez NP 12/03/21 08:53 HPI - Anesthesia Eval Consult details Narrative: 60yo F for Upper Endoscopy with Balloon Dilitation s/p Colonoscopy 09/2020 with MAC PMF Active Problems Active Problems: All Active Problems (Updated 10/05/21 @ 16:31 by CHEMO Thurston) Midsternal chest pain (Acute) Elbow pain, right (Acute) Shoulder pain, right (Acute) Humeral fracture (Acute) GERD without esophagitis (Acute) Esophageal dysphagia (Acute) Schatzki's ring (Acute) Colon cancer screening (Acute) Bladder pain (Acute) Urinary incontinence (Acute) Past Medical History Medical History Arthritis Asthmatic bronchitis Bladder pain Depression Former smoker GERD (gastroesophageal reflux disease) Hiatal hernia Hx of fracture of tibia Hyperlipidemia Hypertension Kidney stones PONV (postoperative nausea and vomiting) PUD (peptic ulcer disease) Pulmonary nodule Schatzki's ring Urinary incontinence Family History Family History Mother HTN (hypertension) COPD (chronic obstructive pulmonary disease) Surgical History Surgical History (Updated 11/30/21 @ 15:26 by Vanessa Giordano RN) H/O endoscopy History of breast lump/mass excision History of hemorrhoidectomy History of tubal ligation Hx of colonoscopy Hx of esophagogastroduodenoscopy Social History Social History Household Members: Spouse Alcohol intake: current Alcohol intake frequency: a few times a week Patient Tobacco Use Status: Current everyday Tobacco user Tobacco use type: Cigarette Cigarettes Per Day: 7 Years Smoked: 40 Smoked in Last 30 Days: Yes Patient Interested in Nicotine Replacement: No Patient Given Instructions on How to Stop Smoking: Yes Date Education Initiated: 12/06/21 Second Hand Smoke Exposure: Yes Substance Use Type: Marijuana Substance Use Type Other:: marijuana former - 7 months ago last Are you DNR?: No Advance Directives: No Advance Directives Information Provided: Yes Recently lost weight without trying: No Current occupational status: unemployed Current occupation: Right Handed Meds Allergies Allergy/AdvReac Type Severity Reaction Status Date / Time aspirin [ASA] Allergy Intermediate GI UPSET Verified 11/19/21 08:49 Home Medications Medication Instructions Recorded Confirmed Last Taken Type lisinopril 10 mg tablet 10 mg PO DAILY 02/25/20 11/30/21 08/11/20 History trazodone 50 mg tablet 50 mg PO BEDTIME 02/25/20 11/30/21 Unknown History clotrimazole-betamethasone 1 1 applic topical BID PRN Rash 03/13/20 11/30/21 Unknown History %-0.05 % topical cream pantoprazole 40 mg tablet,delayed 40 mg PO DAILY 06/11/20 12/06/21 12/06/21 History release cholecalciferol (vitamin D3) 50 50 mcg PO DAILY 08/13/20 11/30/21 Unknown History mcg (2,000 unit) capsule Exam Exam Date and Time: December 03, 2021 0851 Height,Weight and Vital Signs: Height 5 ft Weight 81 kg Pertinent Lab Results Pertinent Lab Results: Laboratory Tests 07/10/21 07/10/21 10:55 10:55 WBC 10.4 Hgb 12.8 Hct 40.3 Plt Count 350 Sodium 139 Potassium 4.6 Chloride 106 Carbon Dioxide 22 BUN 20 H Creatinine 0.94 Assessment and Plan Assessment Anesthesia Assessment: Chart Reviewed Documented by User: Ana Cruz MD 12/06/21 14:39 [facility] Past Medical History Medical History Arthritis Asthmatic bronchitis Bladder pain Depression Former smoker GERD (gastroesophageal reflux disease) Hiatal hernia Hx of fracture of tibia Hyperlipidemia Hypertension Kidney stones PONV (postoperative nausea and vomiting) PUD (peptic ulcer disease) Pulmonary nodule Schatzki's ring Urinary incontinence Family History Family History Mother HTN (hypertension) COPD (chronic obstructive pulmonary disease) Family history of problems with anesthesia: No Surgical History Surgical History (Updated 11/30/21 @ 15:26 by Vanessa Giordano RN) H/O endoscopy History of breast lump/mass excision History of hemorrhoidectomy History of tubal ligation Hx of colonoscopy Hx of esophagogastroduodenoscopy History of Problems with Anesthesia: No Social History Social History Household Members: Spouse Alcohol intake: current Alcohol intake frequency: a few times a week Patient Tobacco Use Status: Current everyday Tobacco user Tobacco use type: Cigarette Cigarettes Per Day: 7 Years Smoked: 40 Smoked in Last 30 Days: Yes Patient Interested in Nicotine Replacement: No Patient Given Instructions on How to Stop Smoking: Yes Date Education Initiated: 12/06/21 Second Hand Smoke Exposure: Yes Substance Use Type: Marijuana Substance Use Type Other:: marijuana former - 7 months ago last Are you DNR?: No Advance Directives: No Advance Directives Information Provided: Yes Recently lost weight without trying: No Current occupational status: unemployed Current occupation: Right Handed Meds Allergies Allergy/AdvReac Type Severity Reaction Status Date / Time aspirin [ASA] Allergy Intermediate GI UPSET Verified 11/19/21 08:49 Home Medications Medication Instructions Recorded Confirmed Last Taken Type lisinopril 10 mg tablet 10 mg PO DAILY 02/25/20 11/30/21 08/11/20 History trazodone 50 mg tablet 50 mg PO BEDTIME 02/25/20 11/30/21 Unknown History clotrimazole-betamethasone 1 1 applic topical BID PRN Rash 03/13/20 11/30/21 Unknown History %-0.05 % topical cream pantoprazole 40 mg tablet,delayed 40 mg PO DAILY 06/11/20 12/06/21 12/06/21 History release cholecalciferol (vitamin D3) 50 50 mcg PO DAILY 08/13/20 11/30/21 Unknown History mcg (2,000 unit) capsule Exam Airway Mallampati Class: II (Poor dentition) TM Dist: >3cm Neck ROM: Full Heart: rrr Lungs: cta Assessment and Plan Assessment Anesthesia Assessment: Anesthesia Plan Discussed and Chart Reviewed Final Anesthetic Review Family History of Problems with Anesthesia: No History of Problems with Anesthesia: No NPO: Yes ASA Class: II Final Preanesthetic Review: No Changes in Pt Med Stat, Meds/Allgs Chart Reviewed and Consent Obtained/Reviewed Patient Risk: Intermediate Procedure Risk: Intermediate Anesthetic Plan Anesthetic Plan: MAC: Disposition: Standard PACU
[2021-12-06 14:24] VITALS: BP 123/85; PULSE 97; RESP 18; TEMP 36.6; O2SAT 99
[2021-12-06] MEDS: Lactated Ringers 1,000 ML 100 ML IVCONT (14:35)
--- NOTE | 2021-12-06 14:46 | MHC.SHP ---
Pre-Procedural Eval Section A Date of Service: 12/06/21 The patient is an INPATIENT: No The History & Physical has been completed within 30 days and I have reviewed it.: No Section B Chief Complaint: reflux,dysphsia,esophageal obstruction Details of Present Illness: GERD, dysphagia Relevant Family History (Specify if Yes): No Relevant Social History: Tobacco Use Present Medications: see Short Stay Collaborative assessment Medical History: Significant History (Arthritis Asthmatic bronchitis Depression Former smoker GERD (gastroesophageal reflux disease) Hiatal hernia Hx of fracture of tibia Hyperlipidemia Hypertension Kidney stones PONV (postoperative nausea and vomiting) PUD (peptic ulcer disease) Pulmonary nodule Schatzki's ring) History of Previous Operations: Relevant previous surgery/procedure and date(s) (H/O endoscopy History of breast lump/mass excision History of hemorrhoidectomy History of tubal ligation Hx of colonoscopy Hx of esophagogastroduodenoscopy) Allergies: Allergies Allergy/AdvReac Type Severity Reaction Status Date / Time aspirin [ASA] Allergy Intermediate GI UPSET Verified 11/19/21 08:49 Review of Systems Sugical H&P ROS: Negative: Constitution, Cardiovascular and Respiratory and Yes, Specify: Gastrointestinal (dysphagia) Exam Surgical H&P Exam: Normal: Heart, Normal: Lungs, Normal: Extremities and Normal: Abdomen Plan Diagnosis/Plan: Unchanged I have reviewed the history and physical and performed a pertinent physical examination on my patient. No changes have occurred unless specified.
--- NOTE | 2021-12-06 15:22 | PM.OP ---
Brief Operative Note Date of Service: 12/06/21 Pre-op diagnosis: GERD, dysphagia Post-op diagnosis: other (Schatzki's ring, gastritis) Procedure: FLEXIBLE TRANSORAL UPPER GASTROINTESTINAL ENDOSCOPY WITH BIOPSIES AND ESOPHAGEAL BALLOON DILATION Consent: Indications for the procedure and potential complications of bleeding, perforation, reaction to medications and missed diagnosis were discussed with the patient and informed consent was obtained. Instrument: Olympus GIF H 190 mid size upper endoscope Monitoring: Vital signs and clinical assessment, continuous EKG monitoring, Pulse oximetry, Carbon Dioxide monitoring and blood pressure monitoring were done throughout the procedure. Procedure: The patient was placed in the left lateral decubitis position and pre-procedure medications were administered and a bite block was placed. The endoscope was inserted into the mouth and advanced under direct vision to the third part of duodenum. A careful inspection was made as the upper endoscope was withdrawn including a retroflexed examination of the proximal stomach; Findings and interventions are described below. Findings: Larynx: Normal Esophagus: GE junction at 32 cms, hiatal hernia 32 to 35 cms.? A partially obstructing Schatzki's ring was visualized at the GE junction Esophageal balloon dilation was performed with a 20 mm CRE balloon X 2 for 60 seconds. Stomach:?Mild gastric erythema with nodular appearing gastric mucosa in the gastric body - biopsied. Linear streaks of erythema with scattered superficial erosions in the antrum/pre-pyloric area - biopsies were obtained. Grade 2 flap valve on retroflexed examination of the cardia. Duodenum:?Normal bulb and descending duodenum Intervention:?Biopsies and esophageal dilation with a CRE balloon to 20 mm? (60 F) as noted above Impression and Post Procedure Diagnosis: Endoscopy Findings: ESOPHAGUS: GE junction at 32 cms, hiatal hernia 32 to 35 cms.? A partially obstructing Schatzki's ring was visualized at the GE junction Esophageal balloon dilation was performed with a 20 mm CRE balloon X 2 for 60 seconds. STOMACH: Mild gastric erythema with nodular appearing gastric mucosa in the gastric body - biopsied. Linear streaks of erythema with scattered superficial erosions in the antrum/pre-pyloric area - biopsies were obtained. Plan: Await pathology results Patient has an appointment on 03/24/22 in the GI Clinic with Dionte Canales M.D. Repeat EGD with dilation prn for recurrent dysphagia Above findings were reviewed with the patient. Surgeon: Dionte Canales MD Anesthesia: MAC Was an Roll Sheeting Cutter used for this Procedure?: Yes Roll Sheeting Cutter: Rd Velasquez Estimated blood loss (mL): 0 Pathology: other (A) BX Gastric Antrum R/O H.Pylori B) BX Gastric Body) Condition: stable Disposition: PACU
--- NOTE | 2021-12-06 15:23 | P.OP_ITS ---
Operative Note Operative Note Date of Service: 12/06/21 Narrative: Pre-op diagnosis: GERD, dysphagia Post-op diagnosis:?other (Schatzki's ring, gastritis) Procedure: FLEXIBLE TRANSORAL UPPER GASTROINTESTINAL ENDOSCOPY WITH BIOPSIES AND ESOPHAGEAL BALLOON DILATION Consent:?Indications for the procedure and potential complications of bleeding, perforation, reaction to medications and missed diagnosis were discussed with the patient and informed consent was obtained. Instrument:?Olympus GIF H 190 mid size upper endoscope Monitoring: Vital signs and clinical assessment, continuous EKG monitoring, Pulse oximetry, Carbon Dioxide monitoring and blood pressure monitoring were done throughout the procedure. Procedure:?The patient was placed in the left lateral decubitis position and pre-procedure medications were administered and a bite block was placed. The endoscope was inserted into the mouth and advanced under direct vision to the third part of duodenum. A careful inspection was made as the upper endoscope was withdrawn including a retroflexed examination of the proximal stomach; Findings and interventions are described below. Findings: Larynx:??Normal Esophagus:?GE junction at 32 cms, hiatal hernia 32 to 35 cms.? A partially obstructing Schatzki's ring was visualized at the GE junction Esophageal balloon dilation was performed with a 20 mm CRE balloon? X 2 for 60 seconds. Stomach:?Mild gastric erythema with nodular appearing gastric mucosa in the gastric body - biopsied.? Linear streaks of erythema with scattered superficial erosions in the antrum/pre-pyloric area ?- biopsies were obtained. Grade 2 flap valve on retroflexed examination of the cardia. Duodenum:?Normal bulb and descending duodenum Intervention:?Biopsies and esophageal dilation with a CRE balloon to 20 mm? (60 F) as noted above Impression and Post Procedure Diagnosis: Endoscopy Findings: ESOPHAGUS:?GE junction at 32 cms, hiatal hernia 32 to 35 cms.? A partially obstructing Schatzki's ring was visualized at the GE junction Esophageal balloon dilation was performed with a 20 mm CRE balloon? X 2 for 60 seconds. STOMACH:?Mild gastric erythema with nodular appearing gastric mucosa in the gastric body - biopsied.? Linear streaks of erythema with scattered superficial erosions in the antrum/pre-pyloric area - biopsies were obtained. Plan: Await pathology results Patient has an appointment on 03/24/22 in the GI Clinic with Dionte Canales M.D. Repeat EGD with dilation prn for recurrent dysphagia Above findings were reviewed with the patient. Surgeon: Dionte Canales MD Anesthesia:?MAC Was an Casino Beverage Server used for this Procedure?:?Yes Casino Beverage Server:?Rd Velasquez Estimated blood loss (mL):?0 Pathology:?other (A) BX Gastric Antrum? R/O H.Pylori? B) BX Gastric Body) Condition:?stable Disposition:?PACU
[2021-12-06 15:50] VITALS: BP 113/58; PULSE 88; RESP 18; TEMP 36.4; O2SAT 99
[2021-12-06 16:05] VITALS: BP 126/73; PULSE 78; RESP 18; TEMP 36.4; O2SAT 99
== END 2021-12-06 16:26 | disposition home or self-care (01) ==
PROVIDERS: PCP Internal Medicine; Visit Provider Internal Medicine Gastroenterology
PROC: (CPT 43249; principal; 2021-12-06 15:00)
DX: K22.2 Esophageal obstruction (principal); K21.9 Gastro-esophageal reflux disease without esophagitis; K27.9 Peptic ulcer, site unspecified, unspecified as acute or chronic, without hemorrhage or perforation; K29.60 Other gastritis without bleeding; K44.9 Diaphragmatic hernia without obstruction or gangrene; I10 Essential (primary) hypertension; E78.5 Hyperlipidemia, unspecified; J45.909 Unspecified asthma, uncomplicated; F32.A Depression, unspecified; R91.1 Solitary pulmonary nodule; E55.9 Vitamin D deficiency, unspecified; F12.90 Cannabis use, unspecified, uncomplicated; Z79.899 Other long term (current) drug therapy; Z88.8 Allergy status to other drugs, medicaments and biological substances; Z87.442 Personal history of urinary calculi; Z87.891 Personal history of nicotine dependence
CPT/HCPCS: 43249; 43239; 88305; 88342; C1726

== ENCOUNTER 2022-03-07 13:05 | Outpatient (REF) | payer OTHER, SELFPAY ==
[2022-03-07 14:00] LABS: Blood Urea Nitrogen 17 mg/dL (9-16); Estimated Glomerular Filt Rate > 60
== END 2022-03-07 13:06 | disposition home or self-care (01) ==
LOC: HO.LAB 13:05
PROVIDERS: PCP Internal Medicine; Visit Provider Urology
DX: R31.29 Other microscopic hematuria (principal)
CPT/HCPCS: 36415; 82565; 84520

== ENCOUNTER 2022-04-13 07:50 | Outpatient (REF) | payer OTHER, SELFPAY ==
--- NOTE | ~2022-04-13 | CT_ITS ---
EXAMINATION: CT ABDOMEN AND PELVIS WITHOUT AND WITH CONTRAST CLINICAL INFORMATION: Microscopic hematuria. COMPARISON: None. TECHNIQUE: Noncontrast CT of the abdomen and pelvis is performed followed by split bolus contrast-enhanced images using 85 mL Omnipaque 350 contrast.? Postcontrast imaging is performed during the combined nephrogram and excretion phase. Sagittal and coronal reformatted images were obtained on the technologist's workstation for both the precontrast and postcontrast phases. This CT examination was performed using dose optimization techniques as appropriate, variously including the following: *Automated exposure control *Adjustment of mA and/or kV according to patient size (this includes techniques or standardized protocols for targeted exams where dose is matched to indication/reason for exam; i.e. extremities or head) *Use of iterative reconstruction technique DLP: 817 mGy-cm. FINDINGS: LUNG BASES: The visualized lung bases are unremarkable. LIVER, GALLBLADDER, AND BILIARY TREE: The liver is enlarged in size, normal shape, and attenuation. No focal hepatic lesion or biliary ductal dilatation is present. The gallbladder is unremarkable with no evidence of radiopaque gallstones, gallbladder wall thickening, or obvious pericholecystic inflammatory changes. PANCREAS: Unremarkable. SPLEEN: Unremarkable. ADRENAL GLANDS: The right adrenal gland is normal. The left adrenal gland measures 2.7 x 2.2 cm with a precontrast measurement of 18 Hounsfield units and a postcontrast measurement of 52 Hounsfield units. No delayed images were obtained. KIDNEYS AND URETERS: The kidneys are normal in size, shape, and attenuation. There are multiple bilateral radiopaque renal calculi. The largest radiopaque calculi in the lower pole left kidney measures 8 mm axial image 24/4. There is an obstructive left UPJ stone measuring 9 mm. Postcontrast, there is bilateral symmetrical nephrograms with nonenhancing cysts midpole left kidney measuring 2.9 x 1.6 cm. No enhancing renal mass or hydronephrosis visualized. The left kidney measures 12.0 cm in length and the right kidney measures 10.6 cm in length. There is good opacification of ureters without any distention. 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 BLADDER: Unremarkable. GASTROINTESTINAL TRACT: There is scattered stool and gas seen throughout the colon without significant distention. The small bowel loops are normal caliber. Appendix is normal caliber with small appendicolith. ABDOMINAL WALL: No significant hernia is appreciated. LYMPH NODES: Normal. VASCULAR: There is atherosclerotic calcification of abdominal aorta without aneurysmal dilatation. PELVIC VISCERA: The uterus is anteverted and appears unremarkable. There is no adnexal mass or free fluid seen. There is a calcified injection granuloma in the left buttock. OSSEUS STRUCTURES: No aggressive lytic or sclerotic process seen. CT/CT urogram IMPRESSION: 1. Bilateral nephrolithiasis without caliectasis or hydronephrosis. There is a left UPJ stone measuring 9 mm. 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 2. Left renal cyst. 3. Mild constipation. 4. Mild hepatomegaly. 5. Left adrenal 2.7 cm enhancing lesion. Recommend follow-up adrenal protocol.
[2022-04-13] MEDS: iohexoL 350 MG/ML 100 ML INFUS..BTL IV (09:12)
[2022-04-14 07:31] LABS: Creatinine POC 0.6 mg/dL (0.5-1.4); GFR POC > 60
== END 2022-04-13 07:51 | disposition home or self-care (01) ==
LOC: HO.CT 07:50
PROVIDERS: PCP Internal Medicine; Visit Provider Urology
DX: R31.29 Other microscopic hematuria (principal)
CPT/HCPCS: 74178; 82565; Q9967

== ENCOUNTER 2022-05-17 15:32 | Outpatient (REF) | payer OTHER, SELFPAY ==
[2022-05-17 16:29] LABS: Blood Urea Nitrogen 11 mg/dL (9-16); Estimated Glomerular Filt Rate > 60
== END 2022-05-17 15:33 | disposition home or self-care (01) ==
LOC: HO.LAB 15:32
PROVIDERS: PCP Internal Medicine; Visit Provider Urology
DX: R31.29 Other microscopic hematuria (principal)
CPT/HCPCS: 36415; 82565; 84520

== ENCOUNTER 2022-05-20 09:34 | Outpatient (REF) | payer OTHER, SELFPAY ==
--- NOTE | ~2022-05-20 | CT_ITS ---
EXAMINATION: CT ABDOMEN WITHOUT AND WITH CONTRAST CLINICAL INFORMATION: Adrenal gland lesion COMPARISON: 04/13/2022 TECHNIQUE: Contiguous axial thin section helical images of the abdomen were performed before and after the administration of 85 mL of Omnipaque 350 intravenous contrast. With delayed images obtained The data set was reformatted in the coronal and sagittal planes and reviewed on an independent workstation. This CT examination was performed using dose optimization techniques as appropriate, variously including the following: *Automated exposure control *Adjustment of mA and/or kV according to patient size (this includes techniques or standardized protocols for targeted exams where dose is matched to indication/reason for exam; i.e. extremities or head) *Use of iterative reconstruction technique DLP: 503 mGy-cm FINDINGS: LUNG BASES: Clear LIVER, GALLBLADDER, AND BILIARY TREE: Unremarkable. PANCREAS: Unremarkable. SPLEEN: Unremarkable. ADRENAL GLANDS AND KIDNEYS: Right adrenal gland is unremarkable. Left adrenal gland 2.8 x 2.4 cm nodule, measuring 22 Hounsfield units on precontrast imaging, 64 Hounsfield units on portal venous phase imaging, and 33 Hounsfield units on delayed imaging consistent with an adenoma. Again seen are multiple bilateral renal stones. There is a proximal left ureteropelvic junctional stone with mild left hydronephrosis measuring 1.0 cm postcontrast demonstrates normal symmetric enhancing nephrograms. Benign-appearing left renal cyst is again noted. Followup imaging is not routinely recommended for benign appearing cysts.. BOWEL LOOPS: Visualized portions of the small and large bowel are unremarkable. LYMPH NODES: Normal. VASCULAR: Scattered aortic atherosclerotic calcifications, no aneurysmal dilation. BONES: Unremarkable CT/CT abdomen wo/w IV con IMPRESSION: 1. Left adrenal gland 2.8 cm nodule demonstrates enhancement characteristics consistent with an adenoma. No follow-up imaging is recommended. 2. Proximal left ureteropelvic junctional stone with mild left hydronephrosis measuring 1.0 cm.
[2022-05-20] MEDS: iohexoL 350 MG/ML 100 ML INFUS..BTL IV (11:08)
== END 2022-05-20 09:35 | disposition home or self-care (01) ==
LOC: HO.CT 09:34
PROVIDERS: PCP Internal Medicine; Visit Provider Urology
DX: E27.9 Disorder of adrenal gland, unspecified (principal)
CPT/HCPCS: 74170; Q9967

== ENCOUNTER 2022-07-01 11:36 | Outpatient (REF) | payer OTHER, SELFPAY ==
--- NOTE | ~2022-07-01 | US_ITS ---
EXAMINATION: US RETROPERITONEAL LIMITED (RENAL ONLY) CLINICAL INFORMATION: Calculus. COMPARISON: X-ray KUB 07/01/2022. CT abdomen 05/20/2022. Renal ultrasound 11/12/2021. Ultrasound abdomen complete 01/27/2015. TECHNIQUE: Real-time imaging of the kidneys. FINDINGS: RIGHT KIDNEY: 10.9 x 4.0 x 5.2 cm (SAG x AP x TRV). The kidney is normal in size, contour, and echogenicity. Renal cortical thickness is normal. Again seen are multiple nonobstructing renal calculi throughout the right kidney ranging in size from a few millimeters up to 7 mm. No focal parenchymal lesions or hydronephrosis. LEFT KIDNEY: 11.9 x 5.1 x 4.9 cm (SAG x AP x TRV). The kidney is normal in size, contour, and echogenicity. Renal cortical thickness is normal. Again seen are multiple nonobstructing renal calculi throughout the right kidney ranging in size from a few millimeters up to 11 mm. No hydronephrosis. The previously seen mild left-sided hydronephrosis caused by a renal pelvic stone on the 05/10/2022 CT scan is no longer present. There is a 2.1 cm benign did-hu-hmyur parapelvic Bosniak class I left renal cyst which needs no additional imaging or followup. No solid renal masses. US/US renal BI IMPRESSION: Bilateral nonobstructing renal calculi. Similar findings have been seen on prior studies. Resolved left-sided hydronephrosis.
--- NOTE | ~2022-07-01 | XR_ITS ---
EXAMINATION: XR ABDOMEN KUB CLINICAL INDICATION: Calculus COMPARISON: 07/01/2022 TECHNIQUE: AP view of the abdomen. FINDINGS: Bilateral calcifications project over the renal shadows with the largest in the right measuring up to 1.2 cm. No abnormal calcifications along the expected course of ureters. Pelvic phleboliths are noted. XR/XR KUB IMPRESSION: Bilateral calcifications project over the renal shadows with the largest in the right measuring up to 1.2 cm.
[2022-07-01 11:50] LABS: MANUAL DIFF FLAG NO
[2022-07-01 12:30] LABS: Appearance Urine Clear; Color Urine Yellow; Glucose Urine UA Negative (Negative); Leukocyte Esterase Urine Negative (Negative); Nitrite Urine Negative (Negative); PH 5.5 (5.0-9.0); Specific Gravity - Urine 1.025 (1.005-1.025); Urine Blood Negative (Negative); Urine Ketones Negative (Negative); Urine Protein Negative (Neg-Trace)
[2022-07-01 12:33] LABS: Bacteria Urine None Seen (None Seen); RBC Urine 0-2 /HPF (0-2); WBC Urine 0-5 /HPF (0-5)
[2022-07-01 12:34] LABS: Basophils Absolute Auto 0.1 X10*3/uL (0.0-0.2); Basophils Percent Auto 0.7 % (0-2); Eosinophils Absolute Auto 0.1 X10*3/uL (0.0-0.4); Eosinophils Percent Auto 1.4 % (0-4); Hematocrit 38.7 % (37.0-47.0); Hemoglobin 12.5 g/dl (12.0-16.0); Imm Gran Abs Auto 0.02 X10*3/uL (0.00-0.03); Imm Gran Pct Auto 0.3 % (0.0-0.4); Mean Corpuscular HGB Conc 32.3 g/dl (31.0-35.0); Mean Platelet Volume 9.1 fL (9.4-12.3); Monocytes Absolute Auto 0.6 X10*3/uL (0.1-1.2); Monocytes Percent Auto 9.1 % (2-11); Neutrophils Absolute Auto 4.1 x10*3/uL (2.0-8.3); Neutrophils Percent Auto 59.5 % (45-73); Platelet Count 293 X10*3/uL (160-400); Red Blood Count 4.16 X10*6/uL (4.20-5.50); Red Cell Distribution Width 13.5 % (11.0-16.0)
[2022-07-01 13:16] LABS: Alanine Aminotransferase 17 U/L (0-31); Albumin Level 4.3 g/dL (3.5-5.0); Alkaline Phosphatase 110 U/L (39-117); Anion Gap 12 (12-20); Aspartate Amino Transferase 18 U/L (5-31); Bilirubin Total 0.3 mg/dL (0.0-1.0); Blood Urea Nitrogen 14 mg/dL (9-16); Calcium 9.2 mg/dL (8.4-10.2); Carbon Dioxide 27 mmol/L (22-29); Chloride 108 mmol/L (96-108); Cholesterol 254 mg/dL; Estimated Glomerular Filt Rate > 60; Glucose Fasting 101 mg/dL (60-99); HDL Cholesterol 62 mg/dL; LDL Cholesterol Calculated 172 mg/dl; Magnesium 1.9 mg/dL (1.6-2.6); Potassium 4.4 mmol/L (3.3-5.1); Sodium 143 mmol/L (135-145); Total Protein 6.8 g/dL (6.5-8.0); Triglycerides 102 mg/dL; Uric Acid 4.4 mg/dL (2.4-5.7)
[2022-07-01 13:35] LABS: Thyroid Stimulating Hormone 2.01 uIU/mL (0.32-4.0); Vitamin D 25-OH Total 42.9 ng/mL (>30)
== END 2022-07-01 11:37 | disposition home or self-care (01) ==
LOC: HO.US 11:36
PROVIDERS: Absent Provider Internal Medicine; PCP Internal Medicine; Visit Provider Urology
DX: Z00.00 Encounter for general adult medical examination without abnormal findings (principal); E78.00 Pure hypercholesterolemia, unspecified; K21.9 Gastro-esophageal reflux disease without esophagitis; I10 Essential (primary) hypertension; R35.0 Frequency of micturition; R31.29 Other microscopic hematuria; N20.1 Calculus of ureter; Z79.899 Other long term (current) drug therapy
CPT/HCPCS: 36415; 74018; 76775; 80053; 80061; 81001; 82306; 83735; 84443; 84550; 85025

== ENCOUNTER 2022-08-31 10:20 | Outpatient (REF) | payer OTHER, SELFPAY ==
--- NOTE | ~2022-08-31 | MM_ITS ---
EXAMINATION: MM SCREENING DIGITAL BREAST TOMOSYNTHESIS, BILATERAL CLINICAL INFORMATION: Screening. Asymptomatic. The lifetime risk of breast cancer based on the Tyrer-Cuzick Model is 5%. COMPARISON: Mammography: 07/10/2021, 10/25/2019, 07/20/2018 TECHNIQUE: Digital breast tomosynthesis is performed in both the craniocaudal and mediolateral oblique views along with computer-aided detection (CAD). Synthesized 2D images are generated from the tomosynthesis. FINDINGS: There are scattered areas of fibroglandular density (ACR BI-RADS breast composition Category b). There are no significant masses, abnormal calcifications, or other abnormalities. No architectural abnormality or developing density or significant change from prior studies. The axilla are unremarkable. MM/MM tomosynthesis screening BI IMPRESSION: No mammographic evidence of malignancy. ASSESSMENT: BI-RADS 1: Negative RECOMMENDATION: Routine annual mammography screening. This patient's information was entered into a reminder system with a target due date for their next mammogram.
[2022-08-31 12:44] LABS: Anion Gap 14 (12-20); Blood Urea Nitrogen 12 mg/dL (9-16); Calcium 9.1 mg/dL (8.4-10.2); Carbon Dioxide 25 mmol/L (22-29); Chloride 108 mmol/L (96-108); Estimated Glomerular Filt Rate > 60; Magnesium 1.9 mg/dL (1.6-2.6); Potassium 3.8 mmol/L (3.3-5.1); Sodium 143 mmol/L (135-145)
[2022-09-08 18:38] LABS: Calcium (PTHI) 9.4 mg/dL (8.6-10.4); PTHI 44 pg/mL (16-77)
== END 2022-08-31 10:21 | disposition home or self-care (01) ==
LOC: HO.MAMMO 10:20
PROVIDERS: Absent Provider Urology; PCP Internal Medicine; Visit Provider Internal Medicine
DX: N20.0 Calculus of kidney (principal); Z12.31 Encounter for screening mammogram for malignant neoplasm of breast
CPT/HCPCS: 36415; 77063; 77067; 80051; 82310; 82565; 83735; 83970; 84520; 84550

== ENCOUNTER 2022-10-14 14:30 | Outpatient (REF) | payer OTHER, SELFPAY ==
--- NOTE | ~2022-10-14 | CT_ITS ---
CT/CT lung screening IMPRESSION: Mild emphysema. Stable small pulmonary nodules. ASSESSMENT: Lung-RADS category 2 RECOMMENDATION: Annual low-dose chest CT follow-up recommended EXAMINATION: CT CHEST SCREENING CLINICAL INFORMATION: Current smoker. 40 pack year history. COMPARISON: Previous chest CT most recent March 2020 TECHNIQUE: Multidetector volumetric CT imaging of the chest is performed without contrast using low dose technique. Additional 2D coronal and sagittal reformatted images and axial 3D maximum intensity projection (MIP) images are generated on the CT workstation. This CT examination was performed using dose optimization techniques as appropriate, variously including the following: *Automated exposure control *Adjustment of mA and/or kV according to patient size (this includes techniques or standardized protocols for targeted exams where dose is matched to indication/reason for exam; i.e. extremities or head) *Use of iterative reconstruction technique DLP: 55 mGy-cm FINDINGS: LUNGS: Mild emphysema. 3 mm peripheral or subpleural right upper lobe nodule axial image 161 series 5. 2 mm peripheral right upper lobe nodule axial image 181 series 5. Abnormal parenchymal density in the anterior left upper lobe/superior lingula likely representing scarring or chronic subsegmental atelectasis axial image 67 series 5. 2 mm peripheral right lower lobe nodule. 3 mm and 1 mm peripheral or subpleural left lower lobe nodules axial image 338 series 5. These are all stable. No endobronchial or endotracheal lesion. MEDIASTINUM: The mediastinum is normal. CORONARY ARTERY CALCIFICATION: Mild PLEURA: There is no pleural effusion. No pleural mass or thickening. AXILLA: No lymphadenopathy. UPPER ABDOMEN: Stable low-attenuation left adrenal lesion. Right renal stones. OSSEOUS STRUCTURES: Degenerative changes of the spine and mild scoliosis. Degenerative changes at the right shoulder.
== END 2022-10-14 14:31 | disposition home or self-care (01) ==
LOC: HO.CT 14:30
PROVIDERS: PCP Internal Medicine; Visit Provider Physician Assistant Medical
DX: Z12.2 Encounter for screening for malignant neoplasm of respiratory organs (principal); F17.210 Nicotine dependence, cigarettes, uncomplicated
CPT/HCPCS: 71271

== ENCOUNTER 2023-02-06 09:08 | Outpatient (REF) | payer OTHER, SELFPAY ==
[2023-02-06 10:30] LABS: Alanine Aminotransferase 19 U/L (0-31); Albumin Level 4.2 g/dL (3.5-5.0); Alkaline Phosphatase 96 U/L (39-117); Anion Gap 13 (12-20); Aspartate Amino Transferase 20 U/L (5-31); Bilirubin Total 0.3 mg/dL (0.0-1.0); Blood Urea Nitrogen 17 mg/dL (9-16); Carbon Dioxide 24 mmol/L (22-29); Chloride 110 mmol/L (96-108); Cholesterol 135 mg/dL (<200); Estimated Glomerular Filt Rate > 60; Glucose Fasting 111 mg/dL (60-99); HDL Cholesterol 57 mg/dL (>40); LDL Cholesterol Calculated 67 mg/dL (<100); Sodium 143 mmol/L (135-145); Total Protein 7.1 g/dL (6.5-8.0); Triglycerides 56 mg/dL (<150)
== END 2023-02-06 09:09 | disposition home or self-care (01) ==
LOC: HO.LAB 09:08
PROVIDERS: PCP Internal Medicine; Visit Provider Internal Medicine
DX: E78.00 Pure hypercholesterolemia, unspecified (principal); I10 Essential (primary) hypertension; N20.0 Calculus of kidney
CPT/HCPCS: 36415; 80053; 80061

== ENCOUNTER 2023-07-20 08:17 | Outpatient (AMB) | payer OTHER, SELFPAY ==
--- NOTE | 2023-07-20 08:18 | A.OFFVIS_ITS ---
Intake Intake Visit Reasons: follow up for meds Intake Note: Patient follow up for med check Patient cc: abdominal bloating, between diarrhea and constipation on and off, still having swallowing problems and dark and light blood stool with a small hemorrhoid out. 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 ?? Patient has had past endoscopies with dilation of a Schatzki's ring. CHRONIC ILLNESSES: Hypertension, HLD - hyperlipidemia, PUD - peptic ulcer, GERD - acid reflux, depression, kidney stones, Asthma, Former Smoker, Pulmonary nodule - 3mm LLL - 2018, Vit D Deficiency, Fibrocystic breast disease, Premenstral dysphoric disorder ?LABS IN [facility]:?12/10/18 Normal CBC and LFTs (except Alk P mildly elevated at 134). ?IMAGING STUDIES 12/24 UGI showed: ? Abnormal-appearing distal thoracic esophagus. There is limited ? distention and mucosal irregularity. There are tertiary contractions ? of the distal esophagus. There is a small sliding-type hiatal hernia ? with prominent Schatzki ring. There is stasis of the barium tablet in ? the distal thoracic esophagus. This probably represents severe ? esophagitis. It is difficult to exclude a mass. Correlation with ? endoscopy recommended. Evaluation of the stomach and duodenum is limited but appears unremarkable. ?ENDOSCOPIC STUDIES:? 10/30/20 COLONOSCOPY SHOWED: Three polyps removed - one polyp not retrieved.? A diminutive appearing polyp biopsied in the sigmoid colon. Moderate to severe diverticulosis seen in the left colon Small hemorrhoids on retroflexed exam. Plan:? Patient has an appointment on 11/12/20 in the GI Clinic with Dionte Canales M.D.. Repeat Colonoscopy interval based on path results - in 3 years if polyps are adenomatous and due to a history of adenomatous colon polyps. A.? Colon, transverse, polypectomy:? Fragments of tubular adenoma; no high-grade dysplasia or carcinoma seen. B.? Colon, sigmoid, polypectomy:? Hyperplastic mucosal polyp. C.? Colon, sigmoid at 20 cm, polypectomy:? Tubular adenoma; no high grade dysplasia or carcinoma seen. 07/03/20 EGD SHOWED: ESOPHAGUS:? Tortuous esophagus with increased tertiary contractions.? GE junction at 32 cms, hiatal hernia 32 to 35 cms. A partially obstructing Schatzki's ring at GE junction - dilated to 20 mm (60 F) with a CRE balloon. STOMACH:? Antral gastritis with erosions. Plan:? Patient has an appointment on 07/20/20 in the GI Clinic with Dionte Canales M.D.-. Above findings were reviewed with the patient and GERD handout was given in the discharge area BIOPSIES SHOWED: ?Cardiac-type mucosa with moderate chronic inactive inflammation; no intestinal metaplasia seen. - Active esophagitis (few eosinophils). 09/19/19 EGD showed: ? ESOPHAGUS: Tortuous esophagus with increased tertiary contractions. GE ? junction at 32 cms, hiatal hernia 32 to 35 cms. A partially obstructing Schatzki's ring at GE junction - dilated to 20 mm (60 F) with a CRE balloon. ? STOMACH: Antral gastritis with erosions. ? Biopsies showed: ? Stomach, antrum, biopsy: Reactive gastropathy with erosion and background mild chronic ? inactive inflammation; no Helicobacter organisms seen. ?TODAY'S VISIT: Patient cc: abdominal bloating, between diarrhea and constipation on and off, still having swallowing problems and dark and light blood stool with a small hemorrhoid out. Still has issues with her throat - with food getting stuck - certain foods. Notes some blood with BM in the toilet bowl and mixed with stools. Notes rectal pain if she goes a lot. PAST VISIT: Patient cc: Vomiting after eating on and off, abdominal pain/bloating, GERD. Denies any other GI issues . Notes recurrent dysphagia with Hamburgers, breads and dry foods for the past few months. Notes intermittent hoarseness and some heartburn. Taking Pantoprazole 40 mg twice daily and sucralfate twice daily BM have been normal. Unintentional wt loss to 160 lbs Colonoscopy results were reviewed with the patient. Complains of hoarseness and cough. Has been having intermittent dysphagia again - and advised to schedule repeat EGD with dilation ?difficulty swallowing after Endoscopy test. Im still coughing when i eat, food still gets stuck and I get a gurgle wheezing feeling. ? Notes some gurgling after she eats and coughs Having trouble with solids and liquids. Has had 5 episodes over the past 2 weeks. Notes trouble with hamburger, pasta and steak even if she chews it well. Even after taking ice cream Food is going down - starts coughing after she eats and notes a gurgling sensation in the middle of her chest. Denies regurgitation of food. ? Doing pretty good. ? Notes difficulty with swallowing - mostly hamburgers. ? Has had intermittent episodes of dysphagia associated with regurgitation of food PFSH Medical History Bladder pain Urinary incontinence PONV (postoperative nausea and vomiting) Hx of fracture of tibia Former smoker Arthritis Pulmonary nodule Kidney stones Depression GERD (gastroesophageal reflux disease) PUD (peptic ulcer disease) Hyperlipidemia Hiatal hernia Schatzki's ring Hypertension Asthmatic bronchitis Surgical History H/O endoscopy History of breast lump/mass excision Hx of esophagogastroduodenoscopy Hx of colonoscopy History of tubal ligation History of hemorrhoidectomy Family History Mother HTN (hypertension) COPD (chronic obstructive pulmonary disease) Social History Household Members: Spouse Alcohol intake: current Alcohol intake frequency: a few times a week Patient Tobacco Use Status: Current everyday Tobacco user Tobacco use type: Cigarette Cigarettes Per Day: 7 Years Smoked: 40 Second Hand Smoke Exposure: Yes Substance Use Type: Marijuana Current occupational status: unemployed Current occupation: Right Handed Review of Systems Const All systems reviewed & are unremarkable except as noted in HPI and below Assessment & Plan Assessment & Plan (1) GERD without esophagitis: Code(s): K21.9 - Gastro-esophageal reflux disease without esophagitis (2) Esophageal dysphagia: Code(s): R13.10 - Dysphagia, unspecified (3) Schatzki's ring: Code(s): K22.2 - Esophageal obstruction (4) Colon cancer screening: Comment: 10/30/20 colonoscopy showed 3 medium sized adenomatous polyps - . Colonoscopy advised in 3 years. Patient has a positive family history of colon cancer in her dad. Code(s): Z12.11 - Encounter for screening for malignant neoplasm of colon Plan 62 YF with HTN - Hypertension, HLD - hyperlipidemia, PUD - peptic ulcer, GERD - acid reflux, depression, kidney stones, Asthma, Former Smoker, Pulmonary nodule - 3mm LLL - 2018, Vit D Deficiency, Fibrocystic breast disease, Premenstral dy sphoric disorder followed in GI for GERD and dysphagia. UGI on 12/07/18 showed limited distention and mucosal irregularity of the distal esophagus with tertiary contractions and a small sliding-type hiatal hernia with a prominent Schatzki ring. Patient has a long history of smoking since age 16 yrs and is trying to cut back. Saba gave a history of nausea and vomiting with anesthetics and gets a patch (? scopolamine) for prevention of these symptoms. 09/19/19 EGD showed . A partially obstructing Schatzki's ring at GE junction - dilated to 20 mm (60 F) with a CRE balloon. 07/03/20 Repeat EGD showed recurrent Schatzki's ring and balloon dilation to 20 F was performed Patient notes persistent dysphagia and was advised to schedule repeat EGD with dilation with Savory dilators versus incision of Schatzki's ring with a needle knife. She notes improvement in coughing spells when she eats and is taking sucralfate and pantoprazole 40 mg twice daily. 07/11/20 No schatzki's ring seen on repeat EGD - empiric dilation was performed with a 20 F Savory dilator. If her symptoms persist, patient will be referred to [facility] for impedance testing. 10/30/20 colonoscopy showed 3 medium sized adenomatous polyps - .? Colonoscopy advised in 3?yrs 07/20/23 Still has issues with her throat - with food getting stuck - certain foods. Notes some blood with BM in the toilet bowl and mixed with stools. Pt advised to schedule an EGD (Dysphagia) and colon (FU of colon polyps) - scheduled 12/01/23 She would like to be placed on wait list to have the procedures scheduled earlier Medications: New bisacodyl (Dulcolax (bisacodyl)) Take 2 tablets at 12 pm daily starting 3 days before colonoscopy appointment 10 mg (2 x 5 mg) PO ONCE 3 days 6 tabs 0RF polyethylene glycol 3350 (Miralax) Mix Miralax with 64 oz(8 cups) of Crystal light. Take 2 tablets of Dulcolax qt 12 pm. Wait to have your 1st bowel movement, then begin drinking Miralax. Drink a glass of Miralax every 10-15 minutes until you are finished. You will drink at least another 4 cups of clear liquid of your choice over the next 2 hours. Please drink as many clear liquids as possible You may have clear liquids up to four hours before your procedure 17 grams PO ONCE 1 day 17 grams 0RF colon prep Telehealth Telehealth Location of provider rendering services: practice address Location of patient: address on file Patient Identification confirmed using: Name, : Yes Telehealth method: voice only Patient verbally consented to treatment: Yes Patient verbally consented to billing insurance company: Yes Patient informed of any privacy concerns related to visit: Yes Minutes spent on Phone/Video with Pt.: 12 Coding Level of Care Code Tele Est Pt Level 3 (35980) Diagnoses GERD without esophagitis K21.9 Esophageal dysphagia R13.10 Schatzki's ring K22.2 Colon cancer screening Z12.11
== END 2023-07-20 09:34 | disposition home or self-care (01) ==
LOC: HO.HGI 08:17
PROVIDERS: PCP Internal Medicine; Visit Provider Internal Medicine Gastroenterology
DX: K21.9 Gastro-esophageal reflux disease without esophagitis (principal); R13.10 Dysphagia, unspecified; K22.2 Esophageal obstruction; Z12.11 Encounter for screening for malignant neoplasm of colon
CPT/HCPCS: 99442

== ENCOUNTER → 2023-07-20 08:17 | Outpatient (BNVA) | payer OTHER, SELFPAY | PROVIDERS: PCP Internal Medicine; Visit Provider Internal Medicine Gastroenterology ==

== ENCOUNTER 2023-08-17 12:09 | Outpatient (REF) | payer OTHER, SELFPAY ==
[2023-08-17 12:41] LABS: MANUAL DIFF FLAG NO
[2023-08-17 13:51] LABS: Basophils Absolute Auto 0.1 X10*3/uL (0.0-0.2); Basophils Percent Auto 0.7 % (0-2); Eosinophils Absolute Auto 0.2 X10*3/uL (0.0-0.4); Eosinophils Percent Auto 2.3 % (0-4); Hematocrit 38.9 % (37.0-47.0); Hemoglobin 12.5 g/dl (12.0-16.0); Imm Gran Abs Auto 0.06 X10*3/uL (0.00-0.03); Imm Gran Pct Auto 0.8 % (0.0-0.4); Lymphocytes Absolute Auto 2.1 X10*3/uL (1.2-4.9); Lymphocytes Percent Auto 26.7 % (20-40); Mean Corpuscular HGB Conc 32.1 g/dl (31.0-35.0); Mean Corpuscular Hemoglobin 29.6 pg (27.0-33.0); Mean Corpuscular Volume 92.2 fL (80.0-98.0); Mean Platelet Volume 9.5 fL (9.4-12.3); Monocytes Absolute Auto 0.6 X10*3/uL (0.1-1.2); Monocytes Percent Auto 7.7 % (2-11); Neutrophils Absolute Auto 4.8 x10*3/uL (2.0-8.3); Neutrophils Percent Auto 61.8 % (45-73); Platelet Count 275 X10*3/uL (160-400); Red Blood Count 4.22 X10*6/uL (4.20-5.50); Red Cell Distribution Width 13.4 % (11.0-16.0); White Blood Count 7.7 X10*3/uL (4.8-10.8)
[2023-08-17 14:46] LABS: Alanine Aminotransferase 17 U/L (0-31); Albumin Level 4.5 g/dL (3.5-5.0); Alkaline Phosphatase 104 U/L (39-117); Anion Gap 12 (12-20); Aspartate Amino Transferase 20 U/L (5-31); Bilirubin Total 0.3 mg/dL (0.0-1.0); Blood Urea Nitrogen 12 mg/dL (9-16); Calcium 9.5 mg/dL (8.4-10.2); Carbon Dioxide 26 mmol/L (22-29); Chloride 110 mmol/L (96-108); Cholesterol 142 mg/dL (<200); Estimated Glomerular Filt Rate > 60; Glucose Fasting 94 mg/dL (60-99); HDL Cholesterol 60 mg/dL (>40); LDL Cholesterol Calculated 70 mg/dL (<100); Potassium 4.1 mmol/L (3.3-5.1); Sodium 144 mmol/L (135-145); Total Protein 7.7 g/dL (6.5-8.0); Triglycerides 61 mg/dL (<150)
[2023-08-17 14:56] LABS: Thyroid Stimulating Hormone 3.04 uIU/mL (0.32-4.0); Vitamin D 25-OH Total 49.6 ng/mL (>30)
== END 2023-08-17 12:10 | disposition home or self-care (01) ==
LOC: HO.LAB 12:09
PROVIDERS: PCP Internal Medicine; Visit Provider Internal Medicine
DX: Z00.00 Encounter for general adult medical examination without abnormal findings (principal); I10 Essential (primary) hypertension; K21.9 Gastro-esophageal reflux disease without esophagitis; E78.00 Pure hypercholesterolemia, unspecified; J45.30 Mild persistent asthma, uncomplicated
CPT/HCPCS: 36415; 80053; 80061; 82306; 84443; 85025

== ENCOUNTER 2023-09-08 15:54 | Outpatient (REF) | payer OTHER, SELFPAY | END 2023-09-08 15:55 | disposition home or self-care (01) | LOC: HO.MAMMO 15:54 | PROVIDERS: PCP Internal Medicine; Visit Provider Internal Medicine | DX: Z12.31 Encounter for screening mammogram for malignant neoplasm of breast (principal) | CPT/HCPCS: 77063; 77067 ==

== ENCOUNTER → 2023-09-08 16:00 | Outpatient (BNV) | payer OTHER, SELFPAY | PROVIDERS: PCP Internal Medicine; Visit Provider Radiology Diagnostic Radiology | DX: Z12.31 Encounter for screening mammogram for malignant neoplasm of breast (principal) | CPT/HCPCS: 77063; 77067 ==

== ENCOUNTER 2023-12-01 07:54 | Day surgery (SDC) | payer OTHER, SELFPAY ==
--- NOTE | 2023-11-30 10:05 | HO.ANESPROP2 ---
Documented by User: Shanell Hernandez NP 11/30/23 10:06 HPI - Anesthesia Eval Consult details Narrative: 62yo F for Upper Endoscopy and Colonoscopy PMFSH Active Problems Active Problems: All Active Problems Nicotine dependence, cigarettes, uncomplicated (Acute) Midsternal chest pain (Acute) Elbow pain, right (Acute) Shoulder pain, right (Acute) Humeral fracture (Acute) GERD without esophagitis (Acute) Esophageal dysphagia (Acute) Schatzki's ring (Acute) Colon cancer screening (Acute) Bladder pain (Acute) Urinary incontinence (Acute) Past Medical History Medical History (Updated 12/01/23 @ 08:48 by Trinity Rodgers RN) Macular degeneration Bilateral cataracts Nicotine dependence, cigarettes, uncomplicated Bladder pain Urinary incontinence PONV (postoperative nausea and vomiting) Hx of fracture of tibia Former smoker Arthritis Pulmonary nodule Kidney stones Depression GERD (gastroesophageal reflux disease) PUD (peptic ulcer disease) Hyperlipidemia Hiatal hernia Schatzki's ring Hypertension Asthmatic bronchitis Family History Family History Mother HTN (hypertension) COPD (chronic obstructive pulmonary disease) Family history of problems with anesthesia: No Surgical History Surgical History (Updated 12/01/23 @ 08:49 by Trinity Rodgers RN) Hx of tonsillectomy H/O foot surgery H/O endoscopy History of breast lump/mass excision Hx of esophagogastroduodenoscopy Hx of colonoscopy History of tubal ligation History of hemorrhoidectomy History of Problems with Anesthesia: No Social History Social History Household Members: Spouse Alcohol intake: current Alcohol intake frequency: a few times a week Patient Tobacco Use Status: Current everyday Tobacco user Tobacco use type: Cigarette Cigarettes Per Day: 10 Years Smoked: 40 Second Hand Smoke Exposure: Yes Use of substances other than those prescribed or required for medical reasons: Yes Substance Use Type: Marijuana Substance Use Type Other:: sometimes Are you DNR?: No Advance Directives: No Advance Directives Information Provided: Yes Current occupational status: unemployed Current occupation: Right [employer] Meds Allergies Allergy/AdvReac Type Severity Reaction Status Date / Time aspirin [ASA] Allergy Intermediate GI UPSET Verified 11/19/21 08:49 Home Medications ?Medication ?Instructions ?Recorded ?Confirmed ?Last Taken ?Type lisinopril 10 mg tablet 10 mg PO DAILY 10/07/20/23 08/11/20 History trazodone 50 mg tablet 50 mg PO BEDTIME 02/25/20 07/20/23 Unknown History clotrimazole-betamethasone 1 1 applic topical BID PRN Rash 03/13/20 07/20/23 Unknown History %-0.05 % topical cream pantoprazole 40 mg tablet,delayed 40 mg PO DAILY 06/11/20 07/20/23 12/06/21 History release cholecalciferol (vitamin D3) 50 50 mcg PO DAILY 08/13/20 07/20/23 Unknown History mcg (2,000 unit) capsule rosuvastatin 40 mg tablet 40 mg PO DAILY 07/20/23 07/20/23 Unknown History Assessment and Plan Assessment Anesthesia Assessment: Chart Reviewed Final Anesthetic Review Family History of Problems with Anesthesia: No History of Problems with Anesthesia: No Documented by User: Frankie Watkins MD 12/01/23 09:46 PMF Past Medical History Medical History (Updated 12/01/23 @ 08:48 by Trinity Rodgers RN) Macular degeneration Bilateral cataracts Nicotine dependence, cigarettes, uncomplicated Bladder pain Urinary incontinence PONV (postoperative nausea and vomiting) Hx of fracture of tibia Former smoker Arthritis Pulmonary nodule Kidney stones Depression GERD (gastroesophageal reflux disease) PUD (peptic ulcer disease) Hyperlipidemia Hiatal hernia Schatzki's ring Hypertension Asthmatic bronchitis Family History Family History Mother HTN (hypertension) COPD (chronic obstructive pulmonary disease) Surgical History Surgical History (Updated 12/01/23 @ 08:49 by Trinity Rodgers RN) Hx of tonsillectomy H/O foot surgery H/O endoscopy History of breast lump/mass excision Hx of esophagogastroduodenoscopy Hx of colonoscopy History of tubal ligation History of hemorrhoidectomy Social History Social History Household Members: Spouse Alcohol intake: current Alcohol intake frequency: a few times a week Patient Tobacco Use Status: Current everyday Tobacco user Tobacco use type: Cigarette Cigarettes Per Day: 10 Years Smoked: 40 Second Hand Smoke Exposure: Yes Use of substances other than those prescribed or required for medical reasons: Yes Substance Use Type: Marijuana Substance Use Type Other:: sometimes Are you DNR?: No Advance Directives: No Advance Directives Information Provided: Yes Current occupational status: unemployed Current occupation: Right [employer] Meds Allergies Allergy/AdvReac Type Severity Reaction Status Date / Time aspirin [ASA] Allergy Intermediate GI UPSET Verified 11/19/21 08:49 Home Medications ?Medication ?Instructions ?Recorded ?Confirmed ?Last Taken ?Type lisinopril 10 mg tablet 10 mg PO DAILY 02/25/20 07/20/23 08/11/20 History trazodone 50 mg tablet 50 mg PO BEDTIME 02/25/20 07/20/23 Unknown History clotrimazole-betamethasone 1 1 applic topical BID PRN Rash 03/13/20 07/20/23 Unknown History %-0.05 % topical cream pantoprazole 40 mg tablet,delayed 40 mg PO DAILY 06/11/20 07/20/23 12/06/21 History release cholecalciferol (vitamin D3) 50 50 mcg PO DAILY 08/13/20 07/20/23 Unknown History mcg (2,000 unit) capsule rosuvastatin 40 mg tablet 40 mg PO DAILY 07/20/23 07/20/23 Unknown History Exam Airway Mallampati Class: II TM Dist: <=3cm Neck ROM: Full Loose/Missing/Broken Teeth: Yes and Upper Heart: ok Lungs: ok Assessment and Plan Assessment Anesthesia Assessment: Anesthesia Plan Discussed Final Anesthetic Review NPO: Yes ASA Class: II Final Preanesthetic Review: No Changes in Pt Med Stat, Meds/Allgs Chart Reviewed, Consent Obtained/Reviewed and Anes Risks/Benef Reviewed Patient Risk: Intermediate Procedure Risk: Intermediate Anesthetic Plan Anesthetic Plan: Agree w/ Assess. and Plan and TIVA Disposition: Standard PACU
--- NOTE | 2023-12-01 08:31 | MHC.SHP ---
Pre-Procedural Eval Section A - 24 Hr Update-Section A only Date of Service: 12/01/23 The patient is an INPATIENT: No The patient has been examined within 24 hours of the surgical procedure. The History & Physical has been completed within 30 days and I have reviewed it.: No Section B - Complete if H&P > 30 days Chief Complaint: Surveillance for colon polyps, dysphagia Details of Present Illness: GERD, dysphagia Relevant Family History (Specify if Yes): No Relevant Social History: Tobacco Use Present Medications: see Short Stay Collaborative assessment Medical History: Significant History (Bladder pain Urinary incontinence PONV (postoperative nausea and vomiting) Hx of fracture of tibia Former smoker Arthritis Pulmonary nodule Kidney stones Depression GERD (gastroesophageal reflux disease) PUD (peptic ulcer disease) Hyperlipidemia Hiatal hernia Schatzki's ring Hypertension Asthmatic b) History of Previous Operations: Relevant previous surgery/procedure and date(s) (H/O endoscopy History of breast lump/mass excision Hx of esophagogastroduodenoscopy Hx of colonoscopy History of tubal ligation History of hemorrhoidectomy) Allergies: Allergies Allergy/AdvReac Type Severity Reaction Status Date / Time aspirin [ASA] Allergy Intermediate GI UPSET Verified 11/19/21 08:49 Review of Systems Sugical H&P ROS: Negative: Constitution, Cardiovascular and Respiratory and Yes, Specify: Gastrointestinal (dysphagia) Exam Surgical H&P Exam: Normal: Heart, Normal: Lungs, Normal: Extremities and Normal: Abdomen Plan Diagnosis/Plan: Unchanged I have reviewed the history and physical and performed a pertinent physical examination on my patient. No changes have occurred unless specified. Time Spent With Patient Time: Total time managing care of this patient today ____ minutes.
[2023-12-01 08:50] VITALS: BMI 32.7
[2023-12-01 08:59] VITALS: BP 149/79; PULSE 95; RESP 16; TEMP 36.7; O2SAT 97
[2023-12-01] MEDS: Lactated Ringers 1,000 ML 100 ML IVCONT (09:08)
[2023-12-01] MEDS: Albuterol Sulfate (0.083%) 2.5 MG/3 ML VIAL.NEB INHALE (09:12)
--- NOTE | 2023-12-01 09:48 | HO.OPN-COLON ---
Colonoscopy Operative Note Operative Note Date of Service: 12/01/23 Narrative: FLEXIBLE TRANSORAL UPPER GASTROINTESTINAL ENDOSCOPY WITH BIOPSIES AND ESOPHAGEAL BALLOON DILATION AND COLONOSCOPY TILL CECUM WITH BIOPSIES AND SNARE POLYPECTOMY Pre-op diagnosis: Colon cancer screening, dysphagia, abd bloating Post-op diagnosis: Hiatal hernia, Gastritis, Colon Polyps, Diverticulosis, hemorrhoids Endoscopist:? Dionte Canales MD Anesthesia:?MAC UPPER ENDOSCOPY Consent: Indications for the procedure and potential complications of bleeding, perforation, reaction to medications and missed diagnosis were discussed with the patient and informed consent was obtained. Instrument: Olympus GIF H 190 mid size upper endoscope Monitoring: Vital signs and clinical assessment, continuous EKG monitoring, Pulse oximetry, Carbon Dioxide monitoring and blood pressure monitoring were done throughout the procedure. Procedure: The patient was placed in the left lateral decubitis position and pre-procedure medications were administered and a bite block was placed. The endoscope was inserted into the mouth and advanced under direct vision to the third part of duodenum. A careful inspection was made as the upper endoscope was withdrawn including a retroflexed examination of the proximal stomach; Findings and interventions are described below. Findings: Larynx: Normal Esophagus: GE junction at 34 cms, small hiatal hernia 34 to 36 cms. A non-obstructing Schatzki's ring at GE junction - balloon dilation was performed with a 19 mm (51F) CRE balloon x 60 seconds. No esophagitis or Parsons's. Stomach: Moderate diffuse gastric erythema - biopsies were obtained from the antrum. Grade 3 flap valve on retroflexed examination of the cardia. Duodenum: Normal bulb and descending duodenum Biopsies were obtained from descending duodenum to check for celiac sprue Intervention: Biopsies as noted above COLONOSCOPY PROCEDURE NOTE Instrument: Olympus PCF H 190 L variable stiffness pediatric colonoscope Monitoring: Vital signs and clinical assessment, intermittent blood pressure monitoring, continuous EKG monitoring, Pulse oximetry and Carbon Dioxide monitoring were done throughout the procedure. Please see anesthesia flowsheet. Colon withdrawl time was 34 minutes. Procedure: The patient was placed in the left lateral decubitis position and pre-procedure medications were administered. After a digital rectal examination of the ano-rectum, the video colonoscope was inserted into the rectum and advanced through the colon to the cecum. The colonoscope was slowly withdrawn in a retrograde panoramic fashion and the colon mucosa was carefully examined including a retroflexed view of the rectum. Findings and interventions are described below. Procedure Difficulty: There was narrowing of the sigmoid colon at 30 cms which was navigated with some difficulty Findings: Terminal Ileum: Not evaluated Cecum: Normal Ascending Colon: Normal Transverse Colon: A 12 to 15 mm sessile polyp in the proximal TC at 70 cms - removed with a hot snare. A 2 cms flat polyp at 70 cms. Polyp was raised with 2 cc of [place] and removed with a hot snare. Polypectomy site was closed with 2 hemoclips and marked with Imani ink Descending Colon: moderate diverticulosis Sigmoid Colon: severe diverticulosis with luminal narrowing Rectum: Normal Ano-rectum: small internal hemorrhoids Colon preparation: , Good after some irrigation. [place] Bowel Preparation Scale Right colon; 2 Transverse colon: 2 Left colon; 2 (0 = Unprepared colon segment with mucosa not seen due to solid stool that cannot be cleared. 1 = Portion of mucosa of the colon segment seen, but other areas of the colon segment not well seen due to staining, residual stool and/or opaque liquid. 2 = Minor amount of residual staining, small fragments of stool and/or opaque liquid, but mucosa of colon segment seen well. 3 = Entire mucosa of colon segment seen well with no residual staining, small fragments of stool or opaque liquid) Impression and Post Procedure Diagnosis: Endoscopy Findings: ESOPHAGUS: Small hiatal hernia, nonobstructing Schatzki's ring - dilated STOMACH: Moderate gastritis DUODENUM: Normal - biopsied to check for celiac sprue. Colonoscopy Findings: Two medium sized polyps were removed Moderate to severe diverticulosis seen in the left colon Small hemorrhoids on retroflexed exam. Plan: Pt has a FU appointment on 12/14/[address] Canales Repeat Colonoscopy in 2 years if polyps are adenomatous and 5 yrs if polyps are hyperplastic. Above findings were reviewed with the patient and relevant handouts were given and the discharge area.
[2023-12-01 10:38] VITALS: BP 115/66; PULSE 88; RESP 18; TEMP 36.2; O2SAT 91
[2023-12-01 10:53] VITALS: BP 118/70; PULSE 74; RESP 18; TEMP 36.2; O2SAT 94
== END 2023-12-01 11:25 | disposition home or self-care (01) ==
PROVIDERS: PCP Internal Medicine; Visit Provider Internal Medicine Gastroenterology
PROC: (CPT 45385; principal; 2023-12-01 09:20)
DX: Z12.11 Encounter for screening for malignant neoplasm of colon (principal); Z86.010 Personal history of colon polyps; Z80.0 Family history of malignant neoplasm of digestive organs; D12.3 Benign neoplasm of transverse colon; K57.30 Diverticulosis of large intestine without perforation or abscess without bleeding; K64.8 Other hemorrhoids; R13.10 Dysphagia, unspecified; K22.2 Esophageal obstruction; K21.9 Gastro-esophageal reflux disease without esophagitis; K29.50 Unspecified chronic gastritis without bleeding; K44.9 Diaphragmatic hernia without obstruction or gangrene; K27.9 Peptic ulcer, site unspecified, unspecified as acute or chronic, without hemorrhage or perforation; I10 Essential (primary) hypertension; E78.5 Hyperlipidemia, unspecified; J45.909 Unspecified asthma, uncomplicated; F32.A Depression, unspecified; Z79.899 Other long term (current) drug therapy; Z88.8 Allergy status to other drugs, medicaments and biological substances; Z98.890 Other specified postprocedural states; F17.210 Nicotine dependence, cigarettes, uncomplicated; Z56.0 Unemployment, unspecified
CPT/HCPCS: 45385; 45381; 43249; 43239; 88305; 88313; 88342; C1726; J2704; J3010

== ENCOUNTER → 2023-12-01 07:54 | Outpatient (BNV) | payer OTHER, SELFPAY | PROVIDERS: PCP Internal Medicine; Visit Provider Internal Medicine Gastroenterology | DX: Z12.11 Encounter for screening for malignant neoplasm of colon (principal); D12.3 Benign neoplasm of transverse colon; K57.90 Diverticulosis of intestine, part unspecified, without perforation or abscess without bleeding; K64.8 Other hemorrhoids; R14.0 Abdominal distension (gaseous); K29.70 Gastritis, unspecified, without bleeding; K22.2 Esophageal obstruction | CPT/HCPCS: 43239; 43249; 45381; 45385 ==

== ENCOUNTER 2023-12-06 10:10 | Outpatient (REF) | payer OTHER, SELFPAY ==
--- NOTE | ~2023-12-06 | CT_ITS ---
EXAMINATION: CT LUNG SCREENING CLINICAL INFORMATION: Nicotine dependence, cigarettes, uncomplicated. The patient is a current smoker with a 40 pack-year history of smoking. COMPARISON: CT chest October 14, 2022. X-ray chest February 25, 2020. TECHNIQUE: Multidetector volumetric CT imaging of the chest is performed on a Siemens SOMATOM Definition scanner without contrast using low dose technique. Additional 2D coronal and sagittal reformatted images and axial 3D maximum intensity projection (MIP) images are generated on the CT workstation. This CT examination was performed using dose optimization techniques as appropriate, variously including the following: *Automated exposure control *Adjustment of mA and/or kV according to patient size (this includes techniques or standardized protocols for targeted exams where dose is matched to indication/reason for exam; i.e. extremities or head) *Use of iterative reconstruction technique TOTAL EXAM DLP: 48 mGy-cm. CTDIvol: 1.43 mGy. FINDINGS: PULMONARY NODULES: A number of small unchanged pulmonary nodules are present, the largest measuring 5 mm in size (see saved richter images). There is no new, increasing-sized or suspicious nodule LUNGS: Lungs bilaterally symmetrically expanded. Emphysematous changes are present along with bronchial thickening. No effusion or pneumothorax. Central airways patent. MEDIASTINUM: No mediastinal, hilar or axillary adenopathy or free fluid collection. CORONARY ARTERY CALCIFICATION: Mild. THYROID GLAND: Unremarkable to the extent seen. CARDIOVASCULAR STRUCTURES: Aortic and heart size normal. No pericardial effusion. CHEST WALL/AXILLA: Unremarkable. UPPER ABDOMEN: 2.3 cm water attenuation left adrenal mass is unchanged and no further follow up or imaging is needed. Bilateral punctate nephrolithiasis is present. OSSEOUS STRUCTURES: No suspicious focal findings. CT/CT lung screening IMPRESSION: No suspicious lung nodules are seen. ASSESSMENT: 1. Lung-RADS Category 2: Benign appearance or behavior of nodules. N/A 2. Lung-RADS Category S: Negative. There are no clinically significant or potentially clinically significant findings not related to the lungs requiring urgent additional evaluation. RECOMMENDATION: Continued routine annual low-dose CT lung screening in 1 year is recommended. An order for CT CHEST LOW DOSE CANCER SCREENING ([id number]) can be placed. Electronically signed by: Brown Kern MD 01/18/2024 10:17 PM EDT
== END 2023-12-06 10:11 | disposition home or self-care (01) ==
LOC: HO.CT 10:10
PROVIDERS: PCP Internal Medicine; Visit Provider Physician Assistant Medical
DX: Z12.2 Encounter for screening for malignant neoplasm of respiratory organs (principal); F17.210 Nicotine dependence, cigarettes, uncomplicated
CPT/HCPCS: 71271

== ENCOUNTER 2023-12-14 10:05 | Outpatient (AMB) | payer OTHER, SELFPAY ==
--- NOTE | 2023-12-14 10:05 | MHC.OFFVIS ---
Intake Visit Reasons: s/p egd/colon Intake Note: Saba presents as a follow up EGD and COLO. CC: She has questions regarding clamp - other than that she feels good. Allergies aspirin [ASA] Allergy (Intermediate, Verified 12/14/23 10:06) GI UPSET Medication List - Last Reconciled 12/14/23 by Dionte Canales MD albuterol sulfate 90 mcg/actuation inhalation cholecalciferol (vitamin D3) 50 mcg PO DAILY clotrimazole-betamethasone 1-0.05 % 1 appl topical BID PRN latanoprost 0.005% drps ophthalmic (eye) lisinopril mg PO pantoprazole 40 mg PO DAILY rosuvastatin 40 mg PO DAILY sucralfate 10 mL PO BID 90 days trazodone 50 mg PO BEDTIME HPI HPI s/p egd/colon: Details: Telemedicine visit for this 62-year-old female for FU of dysphagia,GERD, and colon cancer screening. ?? Patient has had past endoscopies with dilation of a Schatzki's ring. CHRONIC ILLNESSES: Hypertension, HLD - hyperlipidemia, PUD - peptic ulcer, GERD - acid reflux, depression, kidney stones, Asthma, Former Smoker, Pulmonary nodule - 3mm LLL - 2018, Vit D Deficiency, Fibrocystic breast disease, Premenstral dysphoric disorder ?LABS IN [facility]:?12/10/18 Normal CBC and LFTs (except Alk P mildly elevated at 134). ?IMAGING STUDIES 12/24 UGI showed: ? Abnormal-appearing distal thoracic esophagus. There is limited ? distention and mucosal irregularity. There are tertiary contractions ? of the distal esophagus. There is a small sliding-type hiatal hernia ? with prominent Schatzki ring. There is stasis of the barium tablet in ? the distal thoracic esophagus. This probably represents severe ? esophagitis. It is difficult to exclude a mass. Correlation with ? endoscopy recommended. Evaluation of the stomach and duodenum is limited but appears unremarkable. ?ENDOSCOPIC STUDIES:? 12/01/23 EGD AND COLON SHOWED: Endoscopy Findings: ESOPHAGUS: Small hiatal hernia, nonobstructing Schatzki's ring - dilated STOMACH: Moderate gastritis DUODENUM: Normal - biopsied to check for celiac sprue. Colonoscopy Findings: Two medium sized polyps were removed Moderate to severe diverticulosis seen in the left colon Small hemorrhoids on retroflexed exam. Plan: Repeat Colonoscopy in 2 years if polyps are adenomatous and 5 yrs if polyps are hyperplastic. BIOPSIES SHOWED: A. Small bowel, biopsy: Small intestinal mucosa within normal limits; negative for celiac disease. B. Stomach, antrum, biopsy: Antral-type mucosa with mild chronic inactive inflammation; no Helicobacter organisms seen. C. Colon, transverse, polypectomies (2): Fragments of tubular adenomata; negative for high-grade dysplasia or carcinoma 10/30/20 COLONOSCOPY SHOWED: Three polyps removed - one polyp not retrieved.? A diminutive appearing polyp biopsied in the sigmoid colon. Moderate to severe diverticulosis seen in the left colon Small hemorrhoids on retroflexed exam. Plan:? Patient has an appointment on 11/12/20 in the GI Clinic with Dionte Canales M.D.. Repeat Colonoscopy interval based on path results - in 3 years if polyps are adenomatous and due to a history of adenomatous colon polyps. A.? Colon, transverse, polypectomy:? Fragments of tubular adenoma; no high-grade dysplasia or carcinoma seen. B.? Colon, sigmoid, polypectomy:? Hyperplastic mucosal polyp. C.? Colon, sigmoid at 20 cm, polypectomy:? Tubular adenoma; no high grade dysplasia or carcinoma seen. 07/03/20 EGD SHOWED:ESOPHAGUS:? Tortuous esophagus with increased tertiary contractions.? GE junction at 32 cms, hiatal hernia 32 to 35 cms. A partially obstructing Schatzki's ring at GE junction - dilated to 20 mm (60 F) with a CRE balloon. STOMACH:? Antral gastritis with erosions. Plan:? Patient has an appointment on 07/20/20 in the GI Clinic with Dionte Canales M.D.-. Above findings were reviewed with the patient and GERD handout was given in the discharge area BIOPSIES SHOWED: ?Cardiac-type mucosa with moderate chronic inactive inflammation; no intestinal metaplasia seen. - Active esophagitis (few eosinophils). 09/19/19 EGD showed:? ESOPHAGUS: Tortuous esophagus with increased tertiary contractions. GE ? junction at 32 cms, hiatal hernia 32 to 35 cms. A partially obstructing Schatzki's ring at GE junction - dilated to 20 mm (60 F) with a CRE balloon. ? STOMACH: Antral gastritis with erosions. ? Biopsies showed: ? Stomach, antrum, biopsy: Reactive gastropathy with erosion and background mild chronic ? inactive inflammation; no Helicobacter organisms seen. ?TODAY'S VISIT: EGD and Colon results were reviewed with the patient. Continues to have a FB sensation in the throat and denies change in dysphagia after EGD and dilation. has gagging and coughing spells after drinking liquids and solid food PAST VISIT: Patient cc: abdominal bloating, between diarrhea and constipation on and off, still having swallowing problems and dark and light blood stool with a small hemorrhoid out. Still has issues with her throat - with food getting stuck - certain foods. Notes some blood with BM in the toilet bowl and mixed with stools. Notes rectal pain if she goes a lot. Patient cc: Vomiting after eating on and off, abdominal pain/bloating, GERD. Denies any other GI issues . Notes recurrent dysphagia with Hamburgers, breads and dry foods for the past few months. Notes intermittent hoarseness and some heartburn. Taking Pantoprazole 40 mg twice daily and sucralfate twice daily BM have been normal. Unintentional wt loss to 160 lbs Colonoscopy results were reviewed with the patient. Complains of hoarseness and cough. Has been having intermittent dysphagia again - and advised to schedule repeat EGD with dilation ?difficulty swallowing after Endoscopy test. Im still coughing when i eat, food still gets stuck and I get a gurgle wheezing feeling. ? Notes some gurgling after she eats and coughs Having trouble with solids and liquids. Has had 5 episodes over the past 2 weeks. Notes trouble with hamburger, pasta and steak even if she chews it well. Even after taking ice cream Food is going down - starts coughing after she eats and notes a gurgling sensation in the middle of her chest. Denies regurgitation of food. ? Doing pretty good. ? Notes difficulty with swallowing - mostly hamburgers. ? Has had intermittent episodes of dysphagia associated with regurgitation of food [facility] Medical History Macular degeneration Bilateral cataracts Nicotine dependence, cigarettes, uncomplicated Bladder pain Urinary incontinence PONV (postoperative nausea and vomiting) Hx of fracture of tibia Former smoker Arthritis Pulmonary nodule Kidney stones Depression GERD (gastroesophageal reflux disease) PUD (peptic ulcer disease) Hyperlipidemia Hiatal hernia Schatzki's ring Hypertension Asthmatic bronchitis Surgical History Hx of tonsillectomy H/O foot surgery H/O endoscopy History of breast lump/mass excision Hx of esophagogastroduodenoscopy Hx of colonoscopy History of tubal ligation History of hemorrhoidectomy Family History Mother HTN (hypertension) COPD (chronic obstructive pulmonary disease) Social History Household Members: Spouse Alcohol intake: current Alcohol intake frequency: a few times a week Patient Tobacco Use Status: Current everyday Tobacco user Tobacco use type: Cigarette Cigarettes Per Day: 10 Years Smoked: 40 Second Hand Smoke Exposure: Yes Substance Use Type: Marijuana Current occupational status: unemployed Current occupation: Right Handed Review of Systems Const All systems reviewed & are unremarkable except as noted in HPI and below Telehealth Telehealth Telehealth Platform: Telephone Location of provider rendering services: practice address Location of patient: address on file Patient Identification confirmed using: Name, : Yes Telehealth method: voice only Patient verbally consented to treatment: Yes Patient verbally consented to billing insurance company: Yes Patient informed of any privacy concerns related to visit: Yes Minutes spent on Phone/Video with Pt.: 15 Assessment & Plan Assessment & Plan (1) GERD without esophagitis: Code(s): K21.9 - Gastro-esophageal reflux disease without esophagitis Category: Medical (2) Esophageal dysphagia: Code(s): R13.10 - Dysphagia, unspecified Category: Medical (3) Schatzki's ring: Code(s): K22.2 - Esophageal obstruction Category: Medical (4) Colon cancer screening: Comment: 10/30/20 colonoscopy showed 3 medium sized adenomatous polyps - . Colonoscopy advised in 3 years. Patient has a positive family history of colon cancer in her dad. Code(s): Z12.11 - Encounter for screening for malignant neoplasm of colon Category: Medical Plan 62 YF with HTN - Hypertension, HLD - hyperlipidemia, PUD - peptic ulcer, GERD - acid reflux, depression, kidney stones, Asthma, Former Smoker, Pulmonary nodule - 3mm LLL - 2018, Vit D Deficiency, Fibrocystic breast disease, Premenstral dysphoric disorder followed in GI for GERD and dysphagia. UGI on 12/07/18 showed limited distention and mucosal irregularity of the distal esophagus with tertiary contractions and a small sliding-type hiatal hernia with a prominent Schatzki ring. Patient has a long history of smoking since age 16 yrs and is trying to cut back. Saba gave a history of nausea and vomiting with anesthetics and gets a patch (? scopolamine) for prevention of these symptoms. 09/19/19 EGD showed . A partially obstructing Schatzki's ring at GE junction - dilated to 20 mm (60 F) with a CRE balloon. 07/03/20 Repeat EGD showed recurrent Schatzki's ring and balloon dilation to 20 F was performed Patient notes persistent dysphagia and was advised to schedule repeat EGD with dilation with Savory dilators versus incision of Schatzki's ring with a needle knife. She notes improvement in coughing spells when she eats and is taking sucralfate and pantoprazole 40 mg twice daily. 07/11/20 No schatzki's ring seen on repeat EGD - empiric dilation was performed with a 20 F Savory dilator. If her symptoms persist, patient will be referred to [facility] for impedance testing. 10/30/20 colonoscopy showed 3 medium sized adenomatous polyps - .? Colonoscopy advised in 3?yrs 07/20/23 Still has issues with her throat - with food getting stuck - certain foods. Notes some blood with BM in the toilet bowl and mixed with stools. Pt advised to schedule an EGD (Dysphagia) and colon (FU of colon polyps) - scheduled 12/01/23 She would like to be placed on wait list to have the procedures scheduled earlier 12/14/23 EGD and Colon results were reviewed with the patient. Continues to have a FB sensation in the throat and denies change in dysphagia after EGD and dilation. Pt complains of gagging and coughing spells after drinking liquids and solid food Pt would like to proceed with esophageal manometry testing [place] [facility] FU in 6 months Coding Level of Care Code Tele Est Pt Level 3 (98999) Diagnoses GERD without esophagitis K21.9 Esophageal dysphagia R13.10 Schatzki's ring K22.2 Colon cancer screening Z12.11 Time Spent (min) 15
== END 2023-12-14 11:08 | disposition home or self-care (01) ==
LOC: HO.HGI 10:05
PROVIDERS: PCP Internal Medicine; Visit Provider Internal Medicine Gastroenterology
DX: K21.9 Gastro-esophageal reflux disease without esophagitis (principal); R13.10 Dysphagia, unspecified; K22.2 Esophageal obstruction; Z12.11 Encounter for screening for malignant neoplasm of colon; Z71.2 Person consulting for explanation of examination or test findings
CPT/HCPCS: 99442

== ENCOUNTER → 2023-12-14 10:05 | Outpatient (BNVA) | payer OTHER, SELFPAY | PROVIDERS: PCP Internal Medicine; Visit Provider Internal Medicine Gastroenterology ==

== ENCOUNTER → 2024-06-13 11:52 | Outpatient (BNVA) | payer OTHER, SELFPAY | PROVIDERS: PCP Internal Medicine; Visit Provider Internal Medicine Gastroenterology ==

== ENCOUNTER → 2024-06-13 11:52 | Outpatient (AMB) | payer OTHER, SELFPAY ==
--- NOTE | 2024-06-13 11:57 | A.OFFVIS_ITS ---
Intake Visit Reasons: 6 month follow up Intake Note: Patient 6 month follow up for GERD. Patient cc: abdominal bloating after meals, constipation due to medication,passing gasses with some blood clots. Shear Operator Required: No Allergies aspirin [ASA] Allergy (Intermediate, Verified 12/14/23 10:06) GI UPSET Medication List - Last Reconciled 06/13/24 by Dionte Canales MD albuterol sulfate 90 mcg/actuation inhalation cholecalciferol (vitamin D3) 50 mcg PO DAILY clotrimazole-betamethasone 1-0.05 % 1 appl topical BID PRN lisinopril mg PO pantoprazole 40 mg PO DAILY rosuvastatin 40 mg PO DAILY sucralfate 10 mL PO BID 90 days trazodone 50 mg PO BEDTIME HPI HPI 6 month follow up: Details: Telemedicine visit for this 62-year-old female for FU of dysphagia,GERD, and colon cancer screening. ?? Patient has had past endoscopies with dilation of a Schatzki's ring. CHRONIC ILLNESSES: Hypertension, HLD - hyperlipidemia, PUD - peptic ulcer, GERD - acid reflux, depression, kidney stones, Asthma, Former Smoker, Pulmonary nodule - 3mm LLL - 2018, Vit D Deficiency, Fibrocystic breast disease, Premenstral dysphoric disorder ??TODAY'S VISIT: Patient cc: abdominal bloating after meals, constipation due to medication, passing gasses with some blood clots. Notes intermittent rectal bleeding - once in a while Sometimes after passing gas and without having a BM Last week had blood on the toilet paper and in the toilet bowl Denies constipation or diarrhea. Did not get a [place] [facility] [place]. PAST VISIT: EGD and Colon results were reviewed with the patient. Continues to have a FB sensation in the throat and denies change in dysphagia a fter EGD and dilation. has gagging and coughing spells after drinking liquids and solid food Patient cc: abdominal bloating, between diarrhea and constipation on and off, still having swallowing problems and dark and light blood stool with a small hemorrhoid out. Still has issues with her throat - with food getting stuck - certain foods. Notes some blood with BM in the toilet bowl and mixed with stools. Notes rectal pain if she goes a lot. Patient cc: Vomiting after eating on and off, abdominal pain/bloating, GERD. Denies any other GI issues . Notes recurrent dysphagia with Hamburgers, breads and dry foods for the past few months. Notes intermittent hoarseness and some heartburn. Taking Pantoprazole 40 mg twice daily and sucralfate twice daily BM have been normal. Unintentional wt loss to 160 lbs Colonoscopy results were reviewed with the patient. Complains of hoarseness and cough. Has been having intermittent dysphagia again - and advised to schedule repeat EGD with dilation ?difficulty swallowing after Endoscopy test. Im still coughing when i eat, food still gets stuck and I get a gurgle wheezing feeling. ? Notes some gurgling after she eats and coughs Having trouble with solids and liquids. Has had 5 episodes over the past 2 weeks. Notes trouble with hamburger, pasta and steak even if she chews it well. Even after taking ice cream Food is going down - starts coughing after she eats and notes a gurgling sensation in the middle of her chest. Denies regurgitation of food. ? Doing pretty good. ? Notes difficulty with swallowing - mostly hamburgers. ? Has had intermittent episodes of dysphagia associated with regurgitation of food ?LABS IN [facility]:?12/10/18 Normal CBC and LFTs (except Alk P mildly elevated at 134). ?IMAGING STUDIES 12/24 UGI showed: ? Abnormal-appearing distal thoracic esophagus. There is limited ? distention and mucosal irregularity. There are tertiary contractions ? of the distal esophagus. There is a small sliding-type hiatal hernia ? with prominent Schatzki ring. There is stasis of the barium tablet in ? the distal thoracic esophagus. This probably represents severe ? esophagitis. It is difficult to exclude a mass. Correlation with ? endoscopy recommended. Evaluation of the stomach and duodenum is limited but appears unremarkable. ?ENDOSCOPIC STUDIES:? 12/01/23 EGD AND COLON SHOWED: Endoscopy Findings: ESOPHAGUS: Small hiatal hernia, nonobstructing Schatzki's ring - dilated STOMACH: Moderate gastritis DUODENUM: Normal - biopsied to check for celiac sprue. Colonoscopy Findings: Two medium sized polyps were removed Moderate to severe diverticulosis seen in the left colon Small hemorrhoids on retroflexed exam. Plan: Repeat Colonoscopy in 2 years if polyps are adenomatous and 5 yrs if polyps are hyperplastic. BIOPSIES SHOWED: A. Small bowel, biopsy: Small intestinal mucosa within normal limits; negative for celiac disease. B. Stomach, antrum, biopsy: Antral-type mucosa with mild chronic inactive inflammation; no Helicobacter organisms seen. C. Colon, transverse, polypectomies (2): Fragments of tubular adenomata; negative for high-grade dysplasia or carcinoma 10/30/20 COLONOSCOPY SHOWED: Three polyps removed - one polyp not retrieved.? A diminutive appearing polyp biopsied in the sigmoid colon. Moderate to severe diverticulosis seen in the left colon Small hemorrhoids on retroflexed exam. Plan:? Patient has an appointment on 11/12/20 in the GI Clinic with Dionte Canales M.D.. Repeat Colonoscopy interval based on path results - in 3 years if polyps are adenomatous and due to a history of adenomatous colon polyps. A.? Colon, transverse, polypectomy:? Fragments of tubular adenoma; no high-grade dysplasia or carcinoma seen. B.? Colon, sigmoid, polypectomy:? Hyperplastic mucosal polyp. C.? Colon, sigmoid at 20 cm, polypectomy:? Tubular adenoma; no high grade dysplasia or carcinoma seen. 07/03/20 EGD SHOWED:ESOPHAGUS:? Tortuous esophagus with increased tertiary contractions.? GE junction at 32 cms, hiatal hernia 32 to 35 cms. A partially obstructing Schatzki's ring at GE junction - dilated to 20 mm (60 F) with a CRE balloon. STOMACH:? Antral gastritis with erosions. Plan:? Patient has an appointment on 07/20/20 in the GI Clinic with Dionte Canales M.D.-. Above findings were reviewed with the patient and GERD handout was given in the discharge area BIOPSIES SHOWED: ?Cardiac-type mucosa with moderate chronic inactive inflammation; no intestinal metaplasia seen. - Active esophagitis (few eosinophils). 09/19/19 EGD showed:? ESOPHAGUS: Tortuous esophagus with increased tertiary contractions. GE ? junction at 32 cms, hiatal hernia 32 to 35 cms. A partially obstructing Schatzki's ring at GE junction - dilated to 20 mm (60 F) with a CRE balloon. ? STOMACH: Antral gastritis with erosions. ? Biopsies showed: ? Stomach, antrum, biopsy: Reactive gastropathy with erosion and background mild chronic ? inactive inflammation; no Helicobacter organisms seen. PFSH Medical History Macular degeneration Bilateral cataracts Nicotine dependence, cigarettes, uncomplicated Bladder pain Urinary incontinence PONV (postoperative nausea and vomiting) Hx of fracture of tibia Former smoker Arthritis Pulmonary nodule Kidney stones Depression GERD (gastroesophageal reflux disease) PUD (peptic ulcer disease) Hyperlipidemia Hiatal hernia Schatzki's ring Hypertension Asthmatic bronchitis Surgical History Hx of tonsillectomy H/O foot surgery H/O endoscopy History of breast lump/mass excision Hx of esophagogastroduodenoscopy Hx of colonoscopy History of tubal ligation History of hemorrhoidectomy Family History Mother HTN (hypertension) COPD (chronic obstructive pulmonary disease) Social History Household Members: Spouse Alcohol intake: current Alcohol intake frequency: a few times a week Patient Tobacco Use Status: Current everyday Tobacco user Tobacco use type: Cigarette Cigarettes Per Day: 10 Years Smoked: 40 Second Hand Smoke Exposure: Yes Substance Use Type: Marijuana Current occupational status: unemployed Current occupation: Right Handed Review of Systems Const All systems reviewed & are unremarkable except as noted in HPI and below Telehealth Telehealth Telehealth Platform: Telephone Location of provider rendering services: practice address Location of patient: address on file Patient Identification confirmed using: Name, : Yes Telehealth method: voice only Patient verbally consented to treatment: Yes Patient verbally consented to billing insurance company: Yes Patient informed of any privacy concerns related to visit: Yes Minutes spent on Phone/Video with Pt.: 15 Assessment & Plan Assessment & Plan (1) GERD without esophagitis: Code(s): K21.9 - Gastro-esophageal reflux disease without esophagitis Category: Medical (2) Esophageal dysphagia: Code(s): R13.10 - Dysphagia, unspecified Category: Medical (3) Schatzki's ring: Code(s): K22.2 - Esophageal obstruction Category: Medical (4) Colon cancer screening: Comment: 10/30/20 colonoscopy showed 3 medium sized adenomatous polyps - . Colonoscopy advised in 3 years. Patient has a positive family history of colon cancer in her dad. Code(s): Z12.11 - Encounter for screening for malignant neoplasm of colon Category: Medical (5) Rectal bleeding: Code(s): K62.5 - Hemorrhage of anus and rectum Category: Medical Plan 63 YF with HTN - Hypertension, HLD - hyperlipidemia, PUD - peptic ulcer, GERD - acid reflux, depression, kidney stones, Asthma, Former Smoker, Pulmonary nodule - 3mm LLL - 2018, Vit D Deficiency, Fibrocystic breast disease, Premenstral dysphoric disorder followed in GI for GERD and dysphagia. UGI on 12/07/18 showed limited distention and mucosal irregularity of the distal esophagus with tertiary contractions and a small sliding-type hiatal hernia with a prominent Schatzki ring. Patient has a long history of smoking since age 16 yrs and is trying to cut back. Saba gave a history of nausea and vomiting with anesthetics and gets a patch (? scopolamine) for prevention of these symptoms. 09/19/19 EGD showed . A partially obstructing Schatzki's ring at GE junction - dilated to 20 mm (60 F) with a CRE balloon. 07/03/20 Repeat EGD showed recurrent Schatzki's ring and balloon dilation to 20 F was performed Patient notes persistent dysphagia and was advised to schedule repeat EGD with dilation with Savory dilators versus incision of Schatzki's ring with a needle knife. She notes improvement in coughing spells when she eats and is taking sucralfate and pantoprazole 40 mg twice daily. 07/11/20 No schatzki's ring seen on repeat EGD - empiric dilation was performed with a 20 F Savory dilator. If her symptoms persist, patient will be referred to [facility] for impedance testing. 10/30/20 colonoscopy showed 3 medium sized adenomatous polyps - .? Colonoscopy advised in 3?yrs 07/20/23 Still has issues with her throat - with food getting stuck - certain foods. Notes some blood with BM in the toilet bowl and mixed with stools. Pt advised to schedule an EGD (Dysphagia) and colon (FU of colon polyps) - scheduled 12/01/23 She would like to be placed on wait list to have the procedures scheduled earlier 12/14/23 EGD and Colon results were reviewed with the patient. Continues to have a FB sensation in the throat and denies change in dysphagia after EGD and dilation. Pt complains of gagging and coughing spells after drinking liquids and solid food Pt would like to proceed with esophageal manometry testing (prefers to have testing [place] [facility] 06/13/24 Notes intermittent rectal bleeding - once in a while Sometimes after passing gas and without having a BM Pt advised to have labs checked Advised to go to the ED incase of increased bleeding with weakness and/or dizziness FU in 4 months - needs in person visit (Pt has had Telemedicine visits only for the past few years) Orders: Orders Complete Blood Count no Diff Today K62.5 - Hemorrhage of anus and rectum IRON PROFILE Today K62.5 - Hemorrhage of anus and rectum Ferritin Today K62.5 - Hemorrhage of anus and rectum Coding Level of Care Code Tele Est Pt Level 3 (33997) Diagnoses GERD without esophagitis K21.9 Esophageal dysphagia R13.10 Schatzki's ring K22.2 Colon cancer screening Z12.11 Rectal bleeding K62.5 Time Spent (min) 15
== END | disposition home or self-care (01) ==
PROVIDERS: PCP Internal Medicine; Visit Provider Internal Medicine Gastroenterology
CPT/HCPCS: 98013

== ENCOUNTER 2024-08-27 14:53 | Outpatient (AMB) | payer OTHER, SELFPAY ==
[2024-08-27 14:54] VITALS: BP 146/90; PULSE 100; RESP 18; TEMP 36.4; O2SAT 96; BMI 31.4
--- NOTE | 2024-08-27 14:54 | MHC.PC.OV ---
Vital Signs 08/27/24 14:54 Height 5 ft 1 in Weight 166 lb BMI 31.4 BP 146/90 H Respiration 18 Pulse 100 Pulse Source Pulse Oximeter Temp 97.6 F Temp Source Temporal Artery Scan Pulse Oximetry (%) 96 Oxygen Delivery Method Room Air Intake Visit Reasons: physical - see comments Suede Cleaner Required: No Accompanied by: Self / Same As Patient Allergies aspirin [ASA] Allergy (Intermediate, Verified 08/27/24 15:31) GI UPSET Medication List - Last Reconciled 08/27/24 by Kevin Lee MD albuterol sulfate 90 mcg/actuation 1 inh inhalation Q4-6H cholecalciferol (vitamin D3) 50 mcg PO DAILY clotrimazole-betamethasone 1-0.05 % 1 appl topical BID PRN lisinopril mg PO pantoprazole 40 mg PO DAILY rosuvastatin 40 mg PO DAILY trazodone 50 mg PO BEDTIME Tobacco use date assessed: 08/27/24 Dental Screening Dental Screen Date: 08/27/24 Did you have a dental visit in the last 12 months?: No Did you have a dental problem in the last 6 months where you did not have access to dental care?: No Was dental information given to patient?: Patient has dentist [facility] Medical History Macular degeneration Bilateral cataracts Nicotine dependence, cigarettes, uncomplicated Bladder pain Urinary incontinence PONV (postoperative nausea and vomiting) Hx of fracture of tibia Former smoker Arthritis Pulmonary nodule Kidney stones Depression GERD (gastroesophageal reflux disease) PUD (peptic ulcer disease) Hyperlipidemia Hiatal hernia Schatzki's ring Hypertension Asthmatic bronchitis Surgical History Hx of tonsillectomy H/O foot surgery H/O endoscopy History of breast lump/mass excision Hx of esophagogastroduodenoscopy Hx of colonoscopy (~12/01/23) History of tubal ligation History of hemorrhoidectomy Family History Mother HTN (hypertension) COPD (chronic obstructive pulmonary disease) Social History (Updated 08/27/24 @ 15:20 by ELVIRA Pinedo) Household Members: Spouse Housing: House Alcohol intake: current Alcohol intake frequency: holidays/special occasions only Patient Tobacco Use Status: Current everyday Tobacco user Tobacco use type: Cigarette Cigarettes Per Day: 6 Years Smoked: 40 Packs per year/per ci.00 Substance Use Type: Marijuana service: No Current occupational status: retired Cognitive needs: No Hearing needs: No Vision needs: Yes (rx glasses) Questionnaire PHQ-9 Over the last 2 weeks, how often have you been bothered by any of the following problems? 1. Little interest or pleasure in doing things: not at all 2. Feeling down, depressed, or hopeless: not at all 3. Trouble falling or staying asleep, or sleeping too much: not at all 4. Feeling tired or having little energy: not at all 5. Poor appetite or overeating: not at all 6. Feeling bad about yourself - or that you are a failure or have let yourself or your family down: not at all 7. Trouble concentrating on things, such as reading the newspaper or watching television: not at all 8. Moving or speaking so slowly that other people could have noticed. Or the opposite - being so fidgety or restless that you have been moving around a lot more than usual: not at all 9. Thoughts that you would be better off or of hurting yourself in some way: not at all Total score: 0 Depression Screening Interpretation: Negative Depression Screening Done: Yes Source: Developed by Drs. Rd Knapp, Rebecca Roman, Alvaro Aparicio and colleagues, with an educational neno from [employer]. Thrive Questionnaire Date Thrive assessed: 08/27/24 I am a: Patient What is your living situation today?: I have a steady place to live Within the past 12 months, did the food you bought not last and you didn't have the money to get more?: Never true Within the past 12 months, did you worry whether your food would run out before you got money to buy more?: Never true Do you have trouble paying for medicines?: No Do you have trouble getting transportation to medical appointments?: No Do you have trouble paying your heating and electricity bill?: No Do you have trouble taking care of your child, family member or friend?: No Do you have trouble with day-to-day activities such as bathing, preparing meals, shopping, managing finances, etc.?: No Are you currently unemployed and looking for a job?: No Are you interested in more education?: No Please select the resources that you would like help with: None Currently or been in a relationship where the following occur: No concerns reported THRIVE Score: 0 AUDIT C Alcohol Use Questionnaire (AUDIT-C) 1. How often do you have a drink containing alcohol?: Monthly or less 2. How many drinks containing alcohol do you have on a typical day when you are drinking?: 1 or 2 3. How often do you have six or more drinks on one occasion?: Never Total Score: 1 LAMONT-7 AMB Questionnaire LAMONT-7 Date LAMONT - 7 assessed: 08/27/24 Feeling nervous, anxious, or on edge: 0 = Not at all Not being able to stop or control worryin = Not at all Worrying too much about different things: 0 = Not at all Trouble relaxin = Not at all Being so restless that it is hard to sit still: 0 = Not at all Becoming easily annoyed or irritable: 0 = Not at all Feeling afraid as if something awful might happen: 0 = Not at all Total LAMONT-7 score (0-4 normal; 5-9 mild; 10-14 moderate; 15-21 severe): 0 Source: Developed by Drs. Rd Knapp, Rebecca Roman, Alvaro Aparicio and colleagues, with an educational neno from [employer]. Physical exam (Primary Care) Vital Signs: Last Vital Signs Temp 97.6 F 08/27/24 14:54 Pulse 100 08/27/24 14:54 Resp 18 08/27/24 14:54 BP 146/90 H 08/27/24 14:54 Pulse Ox 96 08/27/24 14:54 Oxygen Delivery Method Room Air 08/27/24 14:54 Care Plan Goal for BP management: Elevated BP noted BMI result Body Mass Index 31.4 BMI Assessment/Plan discussion: High (One pound per week weight loss suggested) BMI High, discussed plan: lifestyle, weight reduction and dietary Tobacco/Smoking Status: Tobacco use Status Tobacco use date assessed 08/27/24 08/27/24 14:56 Patient Tobacco Use Status Current everyday Tobacco 08/27/24 15:20 Tobacco use type Cigarette 08/27/24 15:20 Are you ready to quit: No Tobacco cessation counseling provided: Yes PHQ-9: PHQ-9 Score PHQ-9: Total score 0 08/27/24 15:20 Depression Screening Interpretation: Negative Thrive Assessment: Date of Thrive Assessment Date Thrive assessed 08/27/24 08/27/24 14:56 Currently or been in a relationship where the following occur: No concerns reported Coding Level of Care Code New Pt Prev Care 40-64y(44754) Diagnoses Annual physical exam Z00.00 Assessment & Plan Assessment & Plan (1) Annual physical exam: Code(s): Z00.00 - Encounter for general adult medical examination without abnormal findings Plan: Patient is uptodate on mammogram and colonoscopy Plan History of Present Illness The patient is a 63-year-old female presenting for her annual wellness examination. She has a history of obesity, which she attributes partly to her inability to regularly engage in physical activity due to a prior orthopedic injury. This injury required surgical intervention with plates, contributing to her current motivation to lose weight. The patient has previously tried various [id number] solutions for weight loss without success. She expresses the desire to trial Wegovy for weight management but acknowledges challenges in obtaining insurance coverage due to the lack of a diabetes diagnosis. Her medical history includes hypertension and hyperlipidemia. Regarding her sleep habits, the patient has irregular sleep, which she credits to waiting for her to start his shifts, leading to late bedtimes. Additionally, she has significantly reduced her smoking frequency, now managing to abstain for several days a week. The patient lost her son six years ago and currently has two living daughters. The discussion includes plans for upcoming screening tests, notably a colonoscopy and mammogram, scheduled for the near future. Social History - Smoking: Has significantly reduced smoking, now abstains several days a week. - Alcohol: Consumes occasionally on weekends. - Marital Status: with two daughters; son . 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 - Mobility: Limited by leg issues, does not drive. 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 - Pet ownership: Has a dog which she walks regularly. - Diet: Reports not consuming sweets or excessive sugars; occasional bread and pasta intake. Review of Systems - General: Reports sleep disturbance. - Cardiovascular: Denies additional cardiovascular issues other than hypertension. - Respiratory: Denies respiratory symptoms. - Musculoskeletal: Reports a prior fracture requiring surgical fixation. - Psychiatric: Denies anxiety, reports irregular sleep pattern. Physical Exam General: Cooperative and healthy appearing Nutritional Appearance: Well nourished Orientation/consciousness: Patient oriented x3 Limitations: No limitations Head: Normal to inspection General: Appearance normal, both eyes and all related structures Neck: Normal visual inspection Chest: Normal palpation of entire chest wall Respiratory: N ormal respiratory effort Neurology: Patient oriented x3, no anxiety, sleeps well, occasional alcohol use, smoker (reduced to six or seven cigarettes, can go two or three days without smoking). Results - Screening Tests: Mammogram up to date; colonoscopy scheduled for October. Plan I have prescribed Wegovy for weight management, contingent on insurance coverage approval. If not approved, alternative options will be considered. Blood tests will be scheduled to update her metabolic profile, with her last assessments over a year ago. I advised her on lifestyle modifications and the importance of managing her hypertension and hyperlipidemia. A follow-up will occur in six months to monitor her weight management progress and reassess her blood results. Additionally, we discussed the importance of her continued smoking reduction and maintaining a regular sleep schedule despite lifestyles constraints. Patient was informed and verbally consented to the use of an ambient scribe for clinic note documentation during this visit. Discussion Notes I discussed with the patient the potential benefits of Wegovy for weight loss and the typical hurdles associated with getting insurance authorization without a diabetes diagnosis. We reviewed the alternative treatment options, although current medications may have prohibitive side effects. I emphasized the role of diet and lifestyle in managing her hypertension and hyperlipidemia, and we discussed blood work that is due. I addressed her concerns about sleep and smoking habits, congratulating her on smoking reduction efforts. Detailed anticipatory guidance was provided towards her upcoming screenings and follow-up needs, ensuring the patient is informed of the intentions and objectives for returning to review her response to the agreed management plans. Patient Instructions - Take medication for weight management as prescribed and check if insurance covers it. - Schedule and complete prescribed blood tests. - Maintain healthy dietary habits with reduced sugars, carbohydrates, and portion control. - Continue to exercise regularly and stay active within physical limits. - Consistently work on reducing smoking; support available if needed. - Aim for a regular sleep schedule, considering family routines. - Attend scheduled screenings and follow-up appointments. - Seek medical advice if experiencing any unusual symptoms or concerns.
== END 2024-08-27 15:54 | disposition home or self-care (01) ==
LOC: HO.HMCSH 14:53
PROVIDERS: PCP Internal Medicine; Visit Provider Internal Medicine
DX: Z00.00 Encounter for general adult medical examination without abnormal findings (principal)

== ENCOUNTER → 2024-08-27 14:53 | Outpatient (BNVA) | payer OTHER, SELFPAY | PROVIDERS: PCP Internal Medicine; Visit Provider Internal Medicine ==

== ENCOUNTER 2024-09-20 09:10 | Outpatient (REF) | payer OTHER, SELFPAY ==
[2024-09-20 10:48] LABS: Hematocrit 39.1 % (37.0-47.0); Hemoglobin 12.4 g/dl (12.0-16.0); Mean Corpuscular HGB Conc 31.7 g/dl (31.0-35.0); Mean Corpuscular Hemoglobin 29.7 pg (27.0-33.0); Mean Corpuscular Volume 93.8 fL (80.0-98.0); Mean Platelet Volume 9.3 fL (9.4-12.3); Platelet Count 277 X10*3/uL (160-400); Red Blood Count 4.17 X10*6/uL (4.20-5.50); Red Cell Distribution Width 13.3 % (11.0-16.0); White Blood Count 7.4 X10*3/uL (4.8-10.8)
[2024-09-20 10:54] LABS: Estimated Average Glucose 108 mg/dL; Hemoglobin A1C 115.2937 umol/L; Hemoglobin A1c % 5.4 % (<6.0); Total Hemoglobin (HGBA1C) 3233.2781 umol/L
[2024-09-20 10:56] LABS: Appearance Urine Cloudy; Color Urine Yellow; Glucose Urine UA Negative (Negative); Leukocyte Esterase Urine Small (1+) (Negative); Nitrite Urine Negative (Negative); Specific Gravity - Urine 1.015 (1.005-1.025); UMIC TRIGGER UA YES; Urine Blood Negative (Negative); Urine Ketones Negative (Negative); Urine Protein Negative (Neg-Trace)
[2024-09-20 11:01] LABS: Bacteria Urine 2+ (None Seen); Hyaline Casts Urine 0-2 /LPF (0-2); RBC Urine 0-2 /HPF (0-2); Squamous Epithelial Cell Urine >20 /HPF (0-2)
[2024-09-20 11:36] LABS: Alanine Aminotransferase 14 U/L (0-31); Albumin Level 4.2 g/dL (3.5-5.0); Alkaline Phosphatase 93 U/L (39-117); Anion Gap 11 (12-20); Aspartate Amino Transferase 21 U/L (5-31); Bilirubin Direct 0.1 mg/dL (0.0-0.5); Bilirubin Total 0.3 mg/dL (0.0-1.0); Blood Urea Nitrogen 16 mg/dL (9-16); Calcium 9.5 mg/dL (8.4-10.2); Carbon Dioxide 27 mmol/L (22-29); Chloride 110 mmol/L (96-108); Cholesterol 136 mg/dL (<200); Estimated Glomerular Filt Rate > 60; Ferritin 58 ng/mL (10-250); Glucose Random 97 mg/dL (60-115); HDL Cholesterol 55 mg/dL (>40); Iron 63 mcg/dL (30-160); LDL Cholesterol Calculated 68 mg/dL (<100); Percent Iron Saturation 20 % (15-50); Sodium 144 mmol/L (135-145); Thyroid Stimulating Hormone 2.03 uIU/mL (0.32-4.0); Total Iron Binding Capacity 317 mcg/dL (228-428); Total Protein 7.1 g/dL (6.5-8.0); Triglycerides 66 mg/dL (<150); Unsaturated Iron Binding 254 ug/dL
== END 2024-09-20 09:11 | disposition home or self-care (01) ==
LOC: HO.LAB 09:10
PROVIDERS: Internal Medicine Gastroenterology; PCP Internal Medicine; Visit Provider Internal Medicine
DX: Z00.00 Encounter for general adult medical examination without abnormal findings (principal); K62.5 Hemorrhage of anus and rectum; E66.9 Obesity, unspecified; Z13.1 Encounter for screening for diabetes mellitus; Z13.29 Encounter for screening for other suspected endocrine disorder
CPT/HCPCS: 36415; 80048; 80061; 80076; 81001; 82728; 83036; 83540; 84443; 85027

== ENCOUNTER 2024-10-17 09:26 | Outpatient (AMB) | payer OTHER, SELFPAY ==
[2024-10-17 09:56] VITALS: BP 117/63; PULSE 84; O2SAT 97; BMI 30.8
--- NOTE | 2024-10-17 09:56 | A.OFFVIS_ITS ---
Vital Signs 10/17/24 09:56 Height 5 ft 1 in Weight 163 lb BMI 30.8 BP 117/63 Blood Pressure Location Lt brachial Position Sitting Pulse 84 Pulse Oximetry (%) 97 Oxygen Delivery Method Room Air Intake Visit Reasons: 4 mo f/u Intake Note: Patient follow up for GERD and lab results. Patient cc: GERD with coughing, and light and dark rectal bleeding on and off. Digital Court Reporter Required: No Accompanied by: Self / Same As Patient Allergies aspirin (ASA) Allergy (Intermediate, Verified 10/17/24 09:56) GI UPSET Medication List - Last Reconciled 10/17/24 by Dionte Canales MD albuterol sulfate 90 mcg/actuation 1 inh inhalation Q4-6H cholecalciferol (vitamin D3) 50 mcg PO DAILY clotrimazole-betamethasone 1-0.05 % 1 appl topical BID PRN lisinopril mg PO metformin 500 mg PO DAILY pantoprazole 40 mg PO DAILY rosuvastatin 40 mg PO DAILY trazodone 50 mg PO BEDTIME HPI HPI 4 mo f/u: Details: GI clinic visit for this 63-year-old female for FU of dysphagia,GERD, and colon cancer screening. Patient has had past endoscopies with dilation of a Schatzki's ring. CHRONIC ILLNESSES: Hypertension, HLD - hyperlipidemia, PUD - peptic ulcer, GERD - acid reflux, depression, kidney stones, Asthma, Former Smoker, Pulmonary nodule - 3mm LLL - 2017, Vit D Deficiency, Fibrocystic breast disease, Premenstral dysphoric disorder ??TODAY'S VISIT: Patient cc: Patient cc: GERD with coughing, and light and dark rectal bleeding on and off. Notes dysphagia off and on. Belly gets full and notes gurgling on lying down. Continues to have intermittent rectal bleeding - blood can be dark or light and mixed with the stool. She had two episodes when she was passing gas and blood came out Has noted clots on wiping. Has 2-4 BMs daily - usually normal with intermittent diarrhea. PAST VISIT: Notes intermittent rectal bleeding - once in a while Sometimes after passing gas and without having a BM Last week had blood on the toilet paper and in the toilet bowl Denies constipation or diarrhea. Did not get a call from [facility] [place] to schedule esophageal manometry. EGD and Colon results were reviewed with the patient. Continues to have a FB sensation in the throat and denies change in dysphagia after EGD and dilation. has gagging and coughing spells after drinking liquids and solid food Patient cc: abdominal bloating, between diarrhea and constipation on and off, still having swallowing problems and dark and light blood stool with a small hemorrhoid out. Still has issues with her throat - with food getting stuck - certain foods. Notes some blood with BM in the toilet bowl and mixed with stools. Notes rectal pain if she goes a lot. Patient cc: Vomiting after eating on and off, abdominal pain/bloating, GERD. D enies any other GI issues . Notes recurrent dysphagia with Hamburgers, breads and dry foods for the past few months. Notes intermittent hoarseness and some heartburn. Taking Pantoprazole 40 mg twice daily and sucralfate twice daily BM have been normal. Unintentional wt loss to 160 lbs Colonoscopy results were reviewed with the patient. Complains of hoarseness and cough. Has been having intermittent dysphagia again - and advised to schedule repeat EGD with dilation ?difficulty swallowing after Endoscopy test. Im still coughing when i eat, food still gets stuck and I get a gurgle wheezing feeling. ? Notes some gurgling after she eats and coughs Having trouble with solids and liquids. Has had 5 episodes over the past 2 weeks. Notes trouble with hamburger, pasta and steak even if she chews it well. Even after taking ice cream Food is going down - starts coughing after she eats and notes a gurgling sensation in the middle of her chest. Denies regurgitation of food. ? Doing pretty good. ? Notes difficulty with swallowing - mostly hamburgers. ? Has had intermittent episodes of dysphagia associated with regurgitation of food ?LABS IN [facility]:?12/10/18 Normal CBC and LFTs (except Alk P mildly elevated at 134). ?IMAGING STUDIES 12/24 UGI showed: ? Abnormal-appearing distal thoracic esophagus. There is limited ? distention and mucosal irregularity. There are tertiary contractions ? of the distal esophagus. There is a small sliding-type hiatal hernia ? with prominent Schatzki ring. There is stasis of the barium tablet in ? the distal thoracic esophagus. This probably represents severe ? esophagitis. It is difficult to exclude a mass. Correlation with ? endoscopy recommended. Evaluation of the stomach and duodenum is limited but appears unremarkable. ?ENDOSCOPIC STUDIES:? 12/01/23 EGD AND COLON SHOWED: Endoscopy Findings: ESOPHAGUS: Small hiatal hernia, nonobstructing Schatzki's ring - dilated STOMACH: Moderate gastritis DUODENUM: Normal - biopsied to check for celiac sprue. Colonoscopy Findings: Two medium sized polyps were removed Moderate to severe diverticulosis seen in the left colon Small hemorrhoids on retroflexed exam. Plan: Repeat Colonoscopy in 2 years if polyps are adenomatous and 5 yrs if polyps are hyperplastic. BIOPSIES SHOWED: A. Small bowel, biopsy: Small intestinal mucosa within normal limits; negative for celiac disease. B. Stomach, antrum, biopsy: Antral-type mucosa with mild chronic inactive inflammation; no Helicobacter organisms seen. C. Colon, transverse, polypectomies (2): Fragments of tubular adenomata; negative for high-grade dysplasia or carcinoma 10/30/20 COLONOSCOPY SHOWED: Three polyps removed - one polyp not retrieved.? A diminutive appearing polyp biopsied in the sigmoid colon. Moderate to severe diverticulosis seen in the left colon Small hemorrhoids on retroflexed exam. Plan:? Patient has an appointment on 11/12/20 in the GI Clinic with Dionte Canales M.D.. Repeat Colonoscopy interval based on path results - in 3 years if polyps are adenomatous and due to a history of adenomatous colon polyps. A.? Colon, transverse, polypectomy:? Fragments of tubular adenoma; no high-grade dysplasia or carcinoma seen. B.? Colon, sigmoid, polypectomy:? Hyperplastic mucosal polyp. C.? Colon, sigmoid at 20 cm, polypectomy:? Tubular adenoma; no high grade dysplasia or carcinoma seen. 07/03/20 EGD SHOWED:ESOPHAGUS:? Tortuous esophagus with increased tertiary contractions.? GE junction at 32 cms, hiatal hernia 32 to 35 cms. A partially obstructing Schatzki's ring at GE junction - dilated to 20 mm (60 F) with a CRE balloon. STOMACH:? Antral gastritis with erosions. Plan:? Patient has an appointment on 07/20/20 in the GI Clinic with Dionte Canales M.D.-. Above findings were reviewed with the patient and GERD handout was given in the discharge area BIOPSIES SHOWED: ?Cardiac-type mucosa with moderate chronic inactive inflammation; no intestinal metaplasia seen. - Active esophagitis (few eosinophils). 09/19/19 EGD showed:? ESOPHAGUS: Tortuous esophagus with increased tertiary contractions. GE ? junction at 32 cms, hiatal hernia 32 to 35 cms. A partially obstructing Schatzki's ring at GE junction - dilated to 20 mm (60 F) with a CRE balloon. ? STOMACH: Antral gastritis with erosions. ? Biopsies showed: ? Stomach, antrum, biopsy: Reactive gastropathy with erosion and background mild chronic ? inactive inflammation; no Helicobacter organisms seen [facility] Medical History (Updated 10/28/24 @ 12:35 by Jessica Casillas RN) Weight loss Class 1 obesity with body mass index (BMI) of 31.0 to 31.9 in adult Macular degeneration Bilateral cataracts Nicotine dependence, cigarettes, uncomplicated Bladder pain Urinary incontinence PONV (postoperative nausea and vomiting) Hx of fracture of tibia Former smoker Arthritis Pulmonary nodule Kidney stones Depression GERD (gastroesophageal reflux disease) PUD (peptic ulcer disease) Hyperlipidemia Hiatal hernia Schatzki's ring Hypertension Asthmatic bronchitis Surgical History Hx of tonsillectomy H/O foot surgery H/O endoscopy History of breast lump/mass excision Hx of esophagogastroduodenoscopy Hx of colonoscopy (~12/01/23) History of tubal ligation History of hemorrhoidectomy Family History Mother HTN (hypertension) COPD (chronic obstructive pulmonary disease) Social History Household Members: Spouse Housing: House Alcohol intake: current Alcohol intake frequency: holidays/special occasions only Patient Tobacco Use Status: Current everyday Tobacco user Tobacco use type: Cigarette Cigarettes Per Day: 6 Years Smoked: 40 Substance Use Type: Marijuana Have you been hit, kicked, punched, or otherwise hurt by someone within the past year? If so, by whom?: No Are you DNR?: No Advance Directives: No Advance Directives Information Provided: Yes service: No Current occupational status: retired Cognitive needs: No Hearing needs: No Vision needs: Yes (rx glasses) Physical Exam Vital Signs: Last Vital Signs Pulse 84 10/17/24 09:56 BP 117/63 10/17/24 09:56 Pulse Ox 97 10/17/24 09:56 Oxygen Delivery Method Room Air 10/17/24 09:56 BMI result Body Mass Index 30.8 Const General: no acute distress Nutritional Appearance: obese Orientation/consciousness: patient oriented x3 Limitations: no limitations HEENT Head: Yes normal to inspection Ears: hearing grossly normal bilaterally Eyes Sclerae: sclerae normal Pupils: Equal, round and reactive pupils present Neck Neck: Yes normal visual inspection Chest Chest palpation & inspection: normal inspection of the chest Resp Effort & Inspection: normal respiratory effort Auscultation: clear to auscultation bilaterally Cardio Palpation: normal PMI Rate: regular rate Rhythm: regular rhythm Heart sounds: S1 normal heart sound present, S2 normal heart sound present and no murmurs GI Palpation (GI): Soft to palpation, nontender and No hepatosplenomegaly present Auscultation: normal bowel sounds Rectal Exam - Female: deferred Skin General skin exam: no rashes or lesions noted Neuro General: patient oriented x3, gait normal and moves all extremities Cranial nerves: Yes Equal, round and reactive pupils present Psych Appearance: grossly normal Mental Status: mental status grossly normal Assessment & Plan Assessment & Plan (1) GERD without esophagitis: Code(s): K21.9 - Gastro-esophageal reflux disease without esophagitis Category: Medical (2) Esophageal dysphagia: Code(s): R13.10 - Dysphagia, unspecified Category: Medical (3) Schatzki's ring: Code(s): K22.2 - Esophageal obstruction Category: Medical (4) Colon cancer screening: Comment: 10/30/20 colonoscopy showed 3 medium sized adenomatous polyps - . Colonoscopy advised in 3 years. Patient has a positive family history of colon cancer in her dad. Code(s): Z12.11 - Encounter for screening for malignant neoplasm of colon Category: Medical (5) Rectal bleeding: Code(s): K62.5 - Hemorrhage of anus and rectum Category: Medical Plan 63 YF with HTN - Hypertension, HLD - hyperlipidemia, PUD - peptic ulcer, GERD - acid reflux, depression, kidney stones, Asthma, Former Smoker, Pulmonary nodule - 3mm LLL - 2018, Vit D Deficiency, Fibrocystic breast disease, Premenstral dysphoric disorder followed in GI for GERD and dysphagia. UGI on 12/07/18 showed limited distention and mucosal irregularity of the distal esophagus with tertiary contractions and a small sliding-type hiatal hernia with a prominent Schatzki ring. Patient has a long history of smoking since age 16 yrs and is trying to cut back. Izabela gave a history of nausea and vomiting with anesthetics and gets a patch (? scopolamine) for prevention of these symptoms. 09/19/19 EGD showed . A partially obstructing Schatzki's ring at GE junction - dilated to 20 mm (60 F) with a CRE balloon. 07/03/20 Repeat EGD showed recurrent Schatzki's ring and balloon dilation to 20 F was performed Patient notes persistent dysphagia and was advised to schedule repeat EGD with dilation with Savory dilators versus incision of Schatzki's ring with a needle knife. She notes improvement in coughing spells when she eats and is taking sucralfate and pantoprazole 40 mg twice daily. 07/11/20 No schatzki's ring seen on repeat EGD - empiric dilation was performed with a 20 F Savory dilator. If her symptoms persist, patient will be referred to [facility] for impedance testing. 10/30/20 colonoscopy showed 3 medium sized adenomatous polyps - .? Colonoscopy advised in 3?yrs 07/20/23 Still has issues with her throat - with food getting stuck - certain foods. Notes some blood with BM in the toilet bowl and mixed with stools. Pt advised to schedule an EGD (Dysphagia) and colon (FU of colon polyps) - scheduled 12/01/23 She would like to be placed on wait list to have the procedures scheduled earlier pt is scheduled 12/11/[address] Moon case [id number] 12/14/23 EGD and Colon results were reviewed with the patient. Continues to have a FB sensation in the throat and denies change in dysphagia after EGD and dilation. Pt complains of gagging and coughing spells after drinking liquids and solid food Pt would like to proceed with esophageal manometry testing (prefers to have testing performed [place] [facility] 06/13/24 Notes intermittent rectal bleeding - once in a while Sometimes after passing gas and without having a BM Pt advised to have labs checked Advised to go to the ED incase of increased bleeding with weakness and/or dizziness 10/17/24 Continues to have intermittent rectal bleeding - blood can be dark or light and mixed with the stool. She had two episodes when she was passing gas an blood came out Has noted clots on wiping. Patient was advised to schedule an upper endoscopy (dysphagia) and colonoscopy (FU of colon polyps) FU in 4 weeks - scheduled 11/18/24. Coding Level of Care Code Est Pt Level 4 (81268) Diagnoses GERD without esophagitis K21.9 Esophageal dysphagia R13.10 Schatzki's ring K22.2 Colon cancer screening Z12.11 Rectal bleeding K62.5 Time Spent (min) 21
== END 2024-10-17 13:17 | disposition home or self-care (01) ==
PROVIDERS: PCP Internal Medicine; Visit Provider Internal Medicine Gastroenterology
DX: K21.9 Gastro-esophageal reflux disease without esophagitis (principal); R13.10 Dysphagia, unspecified; K22.2 Esophageal obstruction; K62.5 Hemorrhage of anus and rectum
CPT/HCPCS: 99214

== ENCOUNTER 2024-10-25 16:13 | Outpatient (REF) | payer OTHER, SELFPAY ==
--- NOTE | ~2024-10-25 | MM_ITS ---
EXAMINATION: MM SCREENING DIGITAL BREAST TOMOSYNTHESIS, BILATERAL CLINICAL INFORMATION: Screening. Asymptomatic. COMPARISON: Mammography: Comparison is made with available priors TECHNIQUE: Digital breast mammography with tomosynthesis is performed in both the craniocaudal and mediolateral oblique views along with computer-aided detection (CAD). FINDINGS: There are scattered areas of fibroglandular density (ACR BI-RADS breast composition Category b). There are no significant masses, abnormal calcifications, or other abnormalities. MM/MM tomosynthesis screening BI IMPRESSION: No mammographic evidence of malignancy. ASSESSMENT: BI-RADS BI-RADS 1 - Negative RECOMMENDATION: Routine annual mammography screening. 1 year F/U This examination should not preclude the clinical evaluation of a suspicious palpable abnormality. This patient's information was entered into a reminder system with a target due date for their next mammogram. Electronically signed by: Danielle Deluca DO 11/01/2024 09:22 AM EDT
== END 2024-10-25 16:14 | disposition home or self-care (01) ==
LOC: HO.MAMMO 16:13
PROVIDERS: PCP Internal Medicine; Visit Provider Internal Medicine
DX: Z12.31 Encounter for screening mammogram for malignant neoplasm of breast (principal)
CPT/HCPCS: 77063; 77067

== ENCOUNTER → 2024-10-25 16:30 | Outpatient (BNV) | payer OTHER, SELFPAY | PROVIDERS: PCP Internal Medicine; Visit Provider Internal Medicine | DX: Z12.31 Encounter for screening mammogram for malignant neoplasm of breast (principal) | CPT/HCPCS: 77063; 77067 ==

== ENCOUNTER 2024-10-28 11:58 | Day surgery (SDC) | payer OTHER, SELFPAY ==
[2024-10-28 07:46] VITALS: BMI 30.8
[2024-10-28 12:15] VITALS: BP 122/78; PULSE 100; RESP 20; TEMP 36.1; O2SAT 96; BMI 30.6
--- NOTE | 2024-10-28 12:35 | MHC.SHP ---
Pre-Procedural Eval Section A - 24 Hr Update-Section A only Date of Service: 10/28/24 The patient is an INPATIENT: No Changes since office visit: Yes Patient answered all questions; No Cold of Flu in the past 2 weeks, No New Medical Problems and No Changes in Medication The patient has been examined within 24 hours of the surgical procedure. The History & Physical has been completed within 30 days and I have reviewed it.: Yes Section B - Complete if H&P > 30 days Chief Complaint: screening,dysphagia Relevant Family History (Specify if Yes): No Relevant Social History: Tobacco Use Present Medications: see Short Stay Collaborative assessment Medical History: Significant History (Macular degeneration Bilateral cataracts Nicotine dependence, cigarettes, uncomplicated Bladder pain Urinary incontinence PONV (postoperative nausea and vomiting) Hx of fracture of tibia Former smoker Arthritis Pulmonary nodule Kidney stones Depression GERD (gastroesophageal reflux disease) PUD (pep) History of Previous Operations: Relevant previous surgery/procedure and date(s) (H/O foot surgery H/O endoscopy History of breast lump/mass excision Hx of esophagogastroduodenoscopy Hx of colonoscopy (~12/01/23) History of tubal ligation) Allergies: Allergies Allergy/AdvReac Type Severity Reaction Status Date / Time aspirin (ASA) Allergy Intermediate GI UPSET Verified 10/17/24 09:56 Plan Diagnosis/Plan: Unchanged I have reviewed the history and physical and performed a pertinent physical examination on my patient. No changes have occurred unless specified. Time Spent With Patient Time: Total time managing care of this patient today ____ minutes.
[2024-10-28] MEDS: Lactated Ringers 1,000 ML 50 ML IVCONT (12:44)
--- NOTE | 2024-10-28 14:20 | P.CONAN_ITS ---
[facility] Active Problems Active Problems: All Active Problems Rectal bleeding (Acute) Colon cancer screening (Acute) Schatzki's ring (Acute) Esophageal dysphagia (Acute) GERD without esophagitis (Acute) Humeral fracture (Acute) Shoulder pain, right (Acute) Elbow pain, right (Acute) Midsternal chest pain (Acute) Hypertension (Acute) Class 1 obesity with body mass index (BMI) of 31.0 to 31.9 in adult (Acute) Nicotine dependence, cigarettes, uncomplicated (Acute) Bladder pain (Acute) Urinary incontinence (Acute) Past Medical History Medical History (Updated 10/28/24 @ 12:35 by Jessica Casillas RN) Weight loss Class 1 obesity with body mass index (BMI) of 31.0 to 31.9 in adult Macular degeneration Bilateral cataracts Nicotine dependence, cigarettes, uncomplicated Bladder pain Urinary incontinence PONV (postoperative nausea and vomiting) Hx of fracture of tibia Former smoker Arthritis Pulmonary nodule Kidney stones Depression GERD (gastroesophageal reflux disease) PUD (peptic ulcer disease) Hyperlipidemia Hiatal hernia Schatzki's ring Hypertension Asthmatic bronchitis Family History Family History Mother HTN (hypertension) COPD (chronic obstructive pulmonary disease) Family history of problems with anesthesia: No Surgical History Surgical History Hx of tonsillectomy H/O foot surgery H/O endoscopy History of breast lump/mass excision Hx of esophagogastroduodenoscopy Hx of colonoscopy (~12/01/23) History of tubal ligation History of hemorrhoidectomy History of Problems with Anesthesia: No Social History Social History Household Members: Spouse Housing: House Alcohol intake: current Alcohol intake frequency: holidays/special occasions only Patient Tobacco Use Status: Current everyday Tobacco user Tobacco use type: Cigarette Cigarettes Per Day: 6 Years Smoked: 40 Substance Use Type: Marijuana Have you been hit, kicked, punched, or otherwise hurt by someone within the past year? If so, by whom?: No Are you DNR?: No Advance Directives: No Advance Directives Information Provided: Yes service: No Current occupational status: retired Cognitive needs: No Hearing needs: No Vision needs: Yes (rx glasses) Meds Allergies Allergy/AdvReac Type Severity Reaction Status Date / Time aspirin (ASA) Allergy Intermediate GI UPSET Verified 10/17/24 09:56 Active Medications: Current Medications Lactated Ringer's (Lr) 1,000 mls @ 50 mls/hr IVCONT .Q20H RAND Last Admin: 10/28/24 12:44 Dose: 50 mls/hr Naloxone HCl (Naloxone Hcl 0.4 Mg/Ml Vial) 0.04 mg IVPUSH Q5M PRN PRN Reason: Excessive sedation or RR < 8 Home Medications ?Medication ?Instructions ?Recorded ?Confirmed ?Last Taken ?Type clotrimazole-betamethasone 1 1 applic topical BID PRN Rash 03/13/20 10/17/24 Unknown History %-0.05 % topical cream cholecalciferol (vitamin D3) 50 50 mcg PO DAILY 10/17/24 Unknown History mcg (2,000 unit) capsule lisinopril 20 mg tablet mg PO 12/14/23 10/17/24 Unkn own History Exam Height,Weight and Vital Signs: Height 5 ft 1 in Weight 73.482 kg Last Vital Signs Temp 96.9 F 10/28/24 12:15 Pulse 100 10/28/24 12:15 Resp 20 10/28/24 12:15 BP 122/78 10/28/24 12:15 Pulse Ox 96 10/28/24 12:15 O2 Del Method Room Air 10/28/24 12:15 Airway Mallampati Class: II (poor dentition, missing multiple teeth) TM Dist: >3cm Neck ROM: Full Heart: rrr Lungs: cta Assessment and Plan Assessment Anesthesia Assessment: Anesthesia Plan Discussed and Chart Reviewed Final Anesthetic Review Family History of Problems with Anesthesia: No History of Problems with Anesthesia: No NPO: Yes ASA Class: III Final Preanesthetic Review: No Changes in Pt Med Stat, Meds/Allgs Chart Reviewed and Consent Obtained/Reviewed Patient Risk: Intermediate Procedure Risk: Intermediate Anesthetic Plan Anesthetic Plan: MAC: Disposition: Standard PACU
--- NOTE | 2024-10-28 15:52 | HO.OPN-COLON ---
Colonoscopy Operative Note Operative Note Date of Service: 10/28/24 Narrative: FLEXIBLE TRANSORAL UPPER GASTROINTESTINAL ENDOSCOPY WITH BIOPSIES AND ESOPHAGEAL BALLOON DILATION AND COLONOSCOPY TILL CECUM WITH SNARE POLYPECTOMY, SUBMUCOSAL INJECTION AND HEMOCLIP PLACEMENT Pre-op diagnosis: Colon cancer screening, GERD, dysphagia Post-op diagnosis: GERD, hiatal hernia, Schatzki's ring, Gastritis, Colon Polyps, Diverticulosis, hemorrhoids ? Pre-operative diagnosis: : screening,dysphagia Post-operative Diagnosis: : Schatzki ring, gastritis, colon polyps, diverticulosis, hemorrhoids Endoscopist:? Dionte Canales MD Anesthesia:?MAC UPPER ENDOSCOPY Consent: Indications for the procedure and potential complications of bleeding, perforation, reaction to medications and missed diagnosis were discussed with the patient and informed consent was obtained. Instrument: Olympus GIF H 190 mid size upper endoscope Monitoring: Vital signs and clinical assessment, continuous EKG monitoring, Pulse oximetry, Carbon Dioxide monitoring and blood pressure monitoring were done throughout the procedure. Procedure: The patient was placed in the left lateral decubitis position and pre-procedure medications were administered and a bite block was placed. The endoscope was inserted into the mouth and advanced under direct vision to the third part of duodenum. A careful inspection was made as the upper endoscope was withdrawn including a retroflexed examination of the proximal stomach; Findings and interventions are described below. Findings: Larynx: Normal Esophagus: GE junction at 34 cms, small hiatal hernia 34 to 36 cms. No esophagitis or Parsons's. A partially obstructing Schatzki's ring at the GE junction - dilated with a 20 mm CRE balloon x 60 seconds Stomach: Moderate diffuse gastric erythema with nodular appearing mucosa in the gastric body- biopsied. Antral biopsies were obtained to check for Helicobacter pylori. Grade 2 flap valve on retroflexed examination of the cardia. Duodenum: Normal bulb and descending duodenum Intervention: Biopsies as noted above COLONOSCOPY PROCEDURE NOTE Instrument: Olympus PCF H 190 L variable stiffness pediatric colonoscope Monitoring: Vital signs and clinical assessment, intermittent blood pressure monitoring, continuous EKG monitoring, Pulse oximetry and Carbon Dioxide monitoring were done throughout the procedure. Please see anesthesia flowsheet. Colon withdrawl time was 30 minutes. Procedure: The patient was placed in the left lateral decubitis position and pre-procedure medications were administered. After a digital rectal examination of the ano-rectum, the video colonoscope was inserted into the rectum and advanced through the colon to the cecum. The colonoscope was slowly withdrawn in a retrograde panoramic fashion and the colon mucosa was carefully examined including a retroflexed view of the rectum. Findings and interventions are described below. Procedure Difficulty: There was luminal narrowing due to severe diverticulosis in the left colon which was navigated with some difficulty Findings: Terminal Ileum: Not evaluated Cecum: Normal Ascending Colon: A 12-15 mm flat polyp in the mid AC. Polyp was raised with 3 cc of [place] and removed with a hot snare. Polypectomy site was closed with 2 hemoclips Transverse Colon: A 10 mm sessile polyp - removed with a cold snare. Descending Colon: Moderate diverticulosis Sigmoid Colon: A 10 mm sessile polyp - removed with a cold snare. Severe diverticulosis with luminal narrowing Rectum: Normal Ano-rectum: Moderate internal hemorrhoids Colon preparation: Good after copious irrigation. [place] Bowel Preparation Scale Right colon; 2 Transverse colon: 2 Left colon; 2 (0 = Unprepared colon segment with mucosa not seen due to solid stool that cannot be cleared. 1 = Portion of mucosa of the colon segment seen, but other areas of the colon segment not well seen due to staining, residual stool and/or opaque liquid. 2 = Minor amount of residual staining, small fragments of stool and/or opaque liquid, but mucosa of colon segment seen well. 3 = Entire mucosa of colon segment seen well with no residual staining, small fragments of stool or opaque liquid) Impression and Post Procedure Diagnosis: Endoscopy Findings: ESOPHAGUS: Small hiatal hernia 34 to 36 cms. A partially obstructing Schatzki's ring at the GE junction - dilated with a 20 mm CRE balloon x 60 seconds STOMACH: Moderate diffuse gastric erythema with nodular appearing mucosa in the gastric body- biopsied. DUODENUM: Normal Colonoscopy Findings: Three small to medium sized polyps were removed Moderate to severe diverticulosis seen in the left colon Moderate hemorrhoids on retroflexed exam. Plan: Pt has a FU appointment on 11/18/24 with [Dr Canales] Repeat Colonoscopy in 3-5 years if polyps are adenomatous and due to a history of adenomatous colon polyps. A summary of above findings and relevant handouts were given to the patient. BIOPSIES SHOWED: A. Stomach, antrum, biopsy: Antral-type mucosa with mild chronic inactive inflammation; no Helicobacter organisms seen. B. Stomach, body, biopsy: Oxyntic mucosa with mild chronic inactive inflammation; no Helicobacter organisms seen. C. Esophagus, distal, biopsy: Squamous epithelium within normal limits; no inflammation seen. D. Esophagus, proximal, biopsy: Squamous epithelium within normal limits; no inflammation seen. E. Colon, ascending, polypectomy: Colonic mucosa with mild surface hyperplastic changes. F. Colon, transverse, polypectomy: Inflammatory polyp. G. Colon, sigmoid, polypectomy: Hyperplastic mucosal polyp Letter sent to the patient with biopsy results. Patient was placed on the colonoscopy recall list for repeat colon 5 years.
[2024-10-28 16:00] VITALS: BP 141/77; PULSE 87; RESP 16; TEMP 36.1; O2SAT 98
[2024-10-28 16:15] VITALS: BP 144/76; PULSE 84; RESP 20; TEMP 36.1; O2SAT 97
== END 2024-10-28 16:19 | disposition home or self-care (01) ==
PROVIDERS: PCP Internal Medicine; Visit Provider Internal Medicine Gastroenterology
PROC: (CPT 45385; principal; 2024-10-28 13:30)
DX: Z12.11 Encounter for screening for malignant neoplasm of colon (principal); K51.40 Inflammatory polyps of colon without complications; K63.5 Polyp of colon; K56.699 Other intestinal obstruction unspecified as to partial versus complete obstruction; K57.30 Diverticulosis of large intestine without perforation or abscess without bleeding; K64.8 Other hemorrhoids; Z86.0101 Personal history of adenomatous and serrated colon polyps; R13.10 Dysphagia, unspecified; K22.2 Esophageal obstruction; K29.70 Gastritis, unspecified, without bleeding; K44.9 Diaphragmatic hernia without obstruction or gangrene; K21.9 Gastro-esophageal reflux disease without esophagitis; I10 Essential (primary) hypertension; E78.5 Hyperlipidemia, unspecified; J45.909 Unspecified asthma, uncomplicated; Z87.891 Personal history of nicotine dependence; Z79.899 Other long term (current) drug therapy; Z79.02 Long term (current) use of antithrombotics/antiplatelets
CPT/HCPCS: 45385; 45381; 43249; 43239; 88305; 88313; 88342; C1726; J1100; J2250; J2704

== ENCOUNTER → 2024-10-28 11:58 | Outpatient (BNV) | payer OTHER, SELFPAY | PROVIDERS: PCP Internal Medicine; Visit Provider Internal Medicine Gastroenterology | DX: Z12.11 Encounter for screening for malignant neoplasm of colon (principal); K21.9 Gastro-esophageal reflux disease without esophagitis; R13.10 Dysphagia, unspecified; K22.2 Esophageal obstruction; K29.70 Gastritis, unspecified, without bleeding; D12.2 Benign neoplasm of ascending colon; D12.3 Benign neoplasm of transverse colon; D12.5 Benign neoplasm of sigmoid colon; K57.90 Diverticulosis of intestine, part unspecified, without perforation or abscess without bleeding; K64.8 Other hemorrhoids | CPT/HCPCS: 43239; 43249; 45381; 45385 ==

== ENCOUNTER 2024-11-18 07:23 | Outpatient (AMB) | payer OTHER, SELFPAY ==
--- NOTE | 2024-11-18 07:24 | A.OFFVIS_ITS ---
Intake Visit Reasons: post-op Double Intake Note: Patient follow up for EGD/Colonoscopy results. Patient cc: abdominal bloating, sensation of chocking and nasty cought after eating. 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 Patient has had past endoscopies with dilation of a Schatzki's ring. CHRONIC ILLNESSES: Hypertension, HLD - hyperlipidemia, PUD - peptic ulcer, GERD - acid reflux, depression, kidney stones, Asthma, Former Smoker, Pulmonary nodule - 3mm LLL - 2018, Vit D Deficiency, Fibrocystic breast disease, Premenstral dysphoric disorder TODAY'S VISIT: Patient cc: Patient cc: abdominal bloating, sensation of chocking and nasty caught after eating. Complains of cough after eating and sometimes nasty spit (thick, watery and sometimes bubbles). Notes dysphagia off and on - mostly with hamburgers -occasional . Taking pantoprazole for years - helps and does not get heartburn. Belly gets full and notes gurgling on lying down. Continues to have intermittent rectal bleeding - blood can be dark or light and mixed with the stool. She had two episodes when she was passing gas and blood came out Has noted clots on wiping. Has 2-4 BMs daily - usually normal with intermittent diarrhea. PAST VISIT: Notes intermittent rectal bleeding - once in a while Sometimes after passing gas and without having a BM Last week had blood on the toilet paper and in the toilet bowl Denies constipation or diarrhea. Did not get a call from [facility] yet to schedule esophageal manometry. EGD and Colon results were reviewed with the patient. Continues to have a FB sensation in the throat and denies change in dysphagia after EGD and dilation. has gagging and coughing spells after drinking liquids and solid food Patient cc: abdominal bloating, between diarrhea and constipation on and off, still having swallowing problems and dark and light blood stool with a small hemorrhoid out. Still has issues with her throat - with food getting stuck - certain foods. Notes some blood with BM in the toilet bowl and mixed with stools. Notes rectal pain if she goes a lot. Patient cc: Vomiting after eating on and off, abdominal pain/bloating, GERD. Denies any other GI issues . Notes recurrent dysphagia with Hamburgers, breads and dry foods for the past few months. Notes intermittent hoarseness and some heartburn. Taking Pantoprazole 40 mg twice daily and sucralfate twice daily BM have been normal. Unintentional wt loss to 160 lbs Colonoscopy results were reviewed with the patient. Complains of hoarseness and cough. Has been having intermittent dysphagia again - and advised to schedule repeat EGD with dilation ?difficulty swallowing after Endoscopy test. Im still coughing when i eat, food still gets stuck and I get a gurgle wheezing feeling. ? Notes some gurgling after she eats and coughs Having trouble with solids and liquids. Has had 5 episodes over the past 2 weeks. Notes trouble with hamburger, pasta and steak even if she chews it well. Even after taking ice cream Food is going down - starts coughing after she eats and notes a gurgling sensa tion in the middle of her chest. Denies regurgitation of food. ? Doing pretty good. ? Notes difficulty with swallowing - mostly hamburgers. ? Has had intermittent episodes of dysphagia associated with regurgitation of food ?LABS IN [facility]:?12/10/18 Normal CBC and LFTs (except Alk P mildly elevated at 134). ?IMAGING STUDIES 12/24 UGI showed: ? Abnormal-appearing distal thoracic esophagus. There is limited ? distention and mucosal irregularity. There are tertiary contractions ? of the distal esophagus. There is a small sliding-type hiatal hernia ? with prominent Schatzki ring. There is stasis of the barium tablet in ? the distal thoracic esophagus. This probably represents severe ? esophagitis. It is difficult to exclude a mass. Correlation with ? endoscopy recommended. Evaluation of the stomach and duodenum is limited but appears unremarkable. ?ENDOSCOPIC STUDIES:? 12/01/23 EGD AND COLON SHOWED: Endoscopy Findings: ESOPHAGUS: Small hiatal hernia, nonobstructing Schatzki's ring - dilated STOMACH: Moderate gastritis DUODENUM: Normal - biopsied to check for celiac sprue. Colonoscopy Findings: Two medium sized polyps were removed Moderate to severe diverticulosis seen in the left colon Small hemorrhoids on retroflexed exam. Plan: Repeat Colonoscopy in 2 years if polyps are adenomatous and 5 yrs if polyps are hyperplastic. BIOPSIES SHOWED: A. Small bowel, biopsy: Small intestinal mucosa within normal limits; negative for celiac disease. B. Stomach, antrum, biopsy: Antral-type mucosa with mild chronic inactive inflammation; no Helicobacter organisms seen. C. Colon, transverse, polypectomies (2): Fragments of tubular adenomata; negative for high-grade dysplasia or carcinoma 10/30/20 COLONOSCOPY SHOWED: Three polyps removed - one polyp not retrieved.? A diminutive appearing polyp biopsied in the sigmoid colon. Moderate to severe diverticulosis seen in the left colon Small hemorrhoids on retroflexed exam. Plan:? Patient has an appointment on 11/12/20 in the GI Clinic with Dionte Canales M.D.. Repeat Colonoscopy interval based on path results - in 3 years if polyps are adenomatous and due to a history of adenomatous colon polyps. A.? Colon, transverse, polypectomy:? Fragments of tubular adenoma; no high-grade dysplasia or carcinoma seen. B.? Colon, sigmoid, polypectomy:? Hyperplastic mucosal polyp. C.? Colon, sigmoid at 20 cm, polypectomy:? Tubular adenoma; no high grade dysplasia or carcinoma seen. 07/03/20 EGD SHOWED:ESOPHAGUS:? Tortuous esophagus with increased tertiary contractions.? GE junction at 32 cms, hiatal hernia 32 to 35 cms. A partially obstructing Schatzki's ring at GE junction - dilated to 20 mm (60 F) with a CRE balloon. STOMACH:? Antral gastritis with erosions. Plan:? Patient has an appointment on 07/20/20 in the GI Clinic with Dionte Canales M.D.-. Above findings were reviewed with the patient and GERD handout was given in the discharge area BIOPSIES SHOWED: ?Cardiac-type mucosa with moderate chronic inactive inflammation; no intestinal metaplasia seen. - Active esophagitis (few eosinophils). 09/19/19 EGD showed:? ESOPHAGUS: Tortuous esophagus with increased tertiary contractions. GE ? junction at 32 cms, hiatal hernia 32 to 35 cms. A partially obstructing Schatzki's ring at GE junction - dilated to 20 mm (60 F) with a CRE balloon. ? STOMACH: Antral gastritis with erosions. ? Biopsies showed: ? Stomach, antrum, biopsy: Reactive gastropathy with erosion and background mild chronic ? inactive inflammation; no Helicobacter organisms seen PFSH Medical History (Updated 11/18/24 @ 08:00 by Dionte Canales MD) Weight loss Class 1 obesity with body mass index (BMI) of 31.0 to 31.9 in adult Macular degeneration Bilateral cataracts Nicotine dependence, cigarettes, uncomplicated Bladder pain Urinary incontinence PONV (postoperative nausea and vomiting) Hx of fracture of tibia Former smoker Arthritis Pulmonary nodule Kidney stones Depression GERD (gastroesophageal reflux disease) PUD (peptic ulcer disease) Hyperlipidemia Hiatal hernia Schatzki's ring Hypertension Asthmatic bronchitis Surgical History (Updated 11/18/24 @ 07:27 by Deyanira Tucker) Hx of tonsillectomy H/O foot surgery H/O endoscopy History of breast lump/mass excision Hx of esophagogastroduodenoscopy Hx of colonoscopy (10/29/24) History of tubal ligation History of hemorrhoidectomy Family History Mother HTN (hypertension) COPD (chronic obstructive pulmonary disease) Social History Household Members: Spouse Housing: House Alcohol intake: current Alcohol intake frequency: holidays/special occasions only Patient Tobacco Use Status: Current everyday Tobacco user Tobacco use type: Cigarette Cigarettes Per Day: 6 Years Smoked: 40 Substance Use Type: Marijuana service: No Current occupational status: retired Cognitive needs: No Hearing needs: No Vision needs: Yes (rx glasses) Review of Systems Const All systems reviewed & are unremarkable except as noted in HPI and below Telehealth Telehealth Telehealth Platform: Telephone Location of provider rendering services: practice address Location of patient: address on file Patient Identification confirmed using: Name, : Yes Telehealth method: voice only Patient verbally consented to treatment: Yes Patient verbally consented to billing insurance company: Yes Patient informed of any privacy concerns related to visit: Yes Minutes spent on Phone/Video with Pt.: 15 Assessment & Plan Assessment & Plan (1) GERD without esophagitis: Code(s): K21.9 - Gastro-esophageal reflux disease without esophagitis Category: Medical (2) Esophageal dysphagia: Code(s): R13.10 - Dysphagia, unspecified Category: Medical (3) Schatzki's ring: Code(s): K22.2 - Esophageal obstruction Category: Medical (4) Colon cancer screening: Comment: 10/30/20 colonoscopy showed 3 medium sized adenomatous polyps - . Colonoscopy advised in 3 years. Patient has a positive family history of colon cancer in her dad. 10/2024 hyperplastic polyps were removed during colonoscopy. Follow-up colonoscopy advised in 5 years due to history of adenomatous colon polyps. Code(s): Z12.11 - Encounter for screening for malignant neoplasm of colon Category: Medical (5) Rectal bleeding: Code(s): K62.5 - Hemorrhage of anus and rectum Category: Medical (6) History of colon polyps: Comment: 10/30/20 colonoscopy showed 3 medium sized adenomatous polyps - . Colonoscopy advised in 3 years. Patient has a positive family history of colon cancer in her dad. 10/2024 hyperplastic polyps were removed during colonoscopy. Follow-up colonoscopy advised in 5 years due to history of adenomatous colon polyps. Code(s): Z86.0100 - Personal history of colon polyps, unspecified Category: Medical Plan 63 YF with HTN, HLD, PUD, GERD - acid reflux, depression, kidney stones, Asthma, Former Smoker, Pulmonary nodule - 3mm LLL - 2018, Vit D Deficiency, Fibrocystic breast disease, Premenstral dysphoric disorder followed in GI for GERD, dysphagia and colon polyps. UGI on 12/07/18 showed limited distention and mucosal irregularity of the distal esophagus with tertiary contractions and a small sliding-type hiatal hernia with a prominent Schatzki ring. Patient has a long history of smoking since age 16 yrs and is trying to cut back. Izabela gave a history of nausea and vomiting with anesthetics and gets a patch (? scopolamine) for prevention of these symptoms. 09/19/19 EGD showed . A partially obstructing Schatzki's ring at GE junction - di lated to 20 mm (60 F) with a CRE balloon. 07/03/20 Repeat EGD showed recurrent Schatzki's ring and balloon dilation to 20 F was performed Patient notes persistent dysphagia and was advised to schedule repeat EGD with dilation with Savory dilators versus incision of Schatzki's ring with a needle knife. She notes improvement in coughing spells when she eats and is taking sucralfate and pantoprazole 40 mg twice daily. 07/11/20 No schatzki's ring seen on repeat EGD - empiric dilation was performed with a 20 F Savory dilator. If her symptoms persist, patient will be referred to [facility] for impedance testing. 10/30/20 colonoscopy showed 3 medium sized adenomatous polyps - .? Colonoscopy advised in 3?yrs 07/20/23 Still has issues with her throat - with food getting stuck - certain fo ods. Notes some blood with BM in the toilet bowl and mixed with stools. Pt advised to schedule an EGD (Dysphagia) and colon (FU of colon polyps) - scheduled 12/01/23 She would like to be placed on wait list to have the procedures scheduled earlier Pt is scheduled 12/12/23. 12/14/23 EGD and Colon results were reviewed with the patient. Continues to have a FB sensation in the throat and denies change in dysphagia after EGD and dilation. Pt complains of gagging and coughing spells after drinking liquids and solid food Pt would like to proceed with esophageal manometry testing (prefers to have testing performed at [facility]) 06/13/24 Notes intermittent rectal bleeding - once in a while Sometimes after passing gas and without having a BM Pt advised to have labs checked Advised to go to the ED incase of increased bleeding with weakness and/or dizziness 10/17/24 Continues to have intermittent rectal bleeding - blood can be dark or light and mixed with the stool. She had two episodes when she was passing gas an blood came out Has noted clots on wiping. 10/28/24 EGD AND COLON SHOWED: ESOPHAGUS: Small hiatal hernia 34 to 36 cms. A partially obstructing Schatzki's ring at the GE junction - dilated with a 20 mm CRE balloon x 60 seconds STOMACH: Moderate diffuse gastric erythema with nodular appearing mucosa in the gastric body- biopsied. DUODENUM: Normal Colonoscopy Findings: Three small to medium sized polyps were removed Moderate to severe diverticulosis seen in the left colon Moderate hemorrhoids on retroflexed exam. Plan: Repeat Colonoscopy in 3-5 years if polyps are adenomatous and due to a history of adenomatous colon polyps. BIOPSIES SHOWED: A. Stomach, antrum, biopsy: Antral-type mucosa with mild chronic inactive inflammation; no Helicobacter organisms seen. B. Stomach, body, biopsy: Oxyntic mucosa with mild chronic inactive inflammation; no Helicobacter organisms seen. C. Esophagus, distal, biopsy: Squamous epithelium within normal limits; no inflammation seen. D. Esophagus, proximal, biopsy: Squamous epithelium within normal limits; no inflammation seen. E. Colon, ascending, polypectomy: Colonic mucosa with mild surface hyperplastic changes. F. Colon, transverse, polypectomy: Inflammatory polyp. G. Colon, sigmoid, polypectomy: Hyperplastic mucosal polyp Letter sent to the patient with biopsy results. Patient was placed on the colonoscopy recall list for repeat colon 5 years. 11/18/24 patient advised to schedule a modified barium swallow for evaluation of dysphagia associated with coughing spells. Keep appointment for esophageal manometry at [facility]. FU in 3 months Orders: Orders [place] Modified Barium Swallow Today R13.10 - Dysphagia, unspecified Referrals Speech and Hearing Referral R13.10 - Dysphagia, unspecified Coding Level of Care Code Tele Est Pt Level 3 (94106) Diagnoses GERD without esophagitis K21.9 Esophageal dysphagia R13.10 Schatzki's ring K22.2 Colon cancer screening Z12.11 Rectal bleeding K62.5 History of colon polyps Z86.0100 Time Spent (min) 15
== END 2024-11-18 07:57 | disposition home or self-care (01) ==
LOC: HO.HGI 07:23
PROVIDERS: PCP Internal Medicine; Visit Provider Internal Medicine Gastroenterology
DX: K21.9 Gastro-esophageal reflux disease without esophagitis (principal); R13.10 Dysphagia, unspecified; K22.2 Esophageal obstruction; K62.5 Hemorrhage of anus and rectum
CPT/HCPCS: 99213

== ENCOUNTER 2025-01-01 09:23 | Outpatient (REF) | payer OTHER, SELFPAY ==
--- NOTE | ~2025-01-01 | FL_ITS ---
EXAMINATION: Modified Barium Swallow CLINICAL INFORMATION: Dysphagia COMPARISON: None TECHNIQUE: Modified barium swallow was performed under lateral fluoroscopy with patient in standing position. Barium mixed with solids and liquids of different consistencies was administered by the speech pathologist. Examination was recorded in the fluoroscopy suite. FINDINGS: Patient was given multiple consistencies. There was no laryngeal penetration or subglottic aspiration identified. FLUOROSCOPY TIME: 1 minute 12 seconds Number of Spot Images: N/A DOSE AREA PRODUCT: 826.1 uGy-m2 (microgray-meter squared) FL/FL Modified Barium Swallow IMPRESSION: No laryngeal penetration or subglottic aspiration. Please refer to the full speech therapy report to follow for further detail. Electronically signed by: Marty Castro MD 01/01/2025 10:56 AM EDT
--- NOTE | 2025-01-01 13:10 | MHC.SL.IMP ---
Date of Plan of Treatment: 01/01/25 Onset of Symptoms/Illness: 11/18/24 Date Treatment Started: 01/01/25 Admitting Diagnosis: GERD without esophagitis K21.9 Esophageal dysphagia R13.10 Schatzki's ring K22.2 Colon cancer screening Z12.11 Rectal bleeding K62.5 History of colon polyps Z86.0100 Primary Speech & Language Diagnosis: R13.14 Pharyngoesophageal Phase Dysphagia Reason for Today's Visit: 22695 Modified Barium Swallow Study Pre-evaluation Dietary Consistencies: Regular Pre-evaluation Liquid Consistency: Thin Pre-evaluation Medication Administration: Whole with Liquid Medical History: Modified Barium Swallow Study Fluoroscopic Evaluation of Swallowing Function CPT Code 16032 Evaluation Year: 2024 Reason for Study: Difficulty swallowing Referring Physician: Dionte Canales MD Evaluating Clinician: Dari Coates MA, CCC-TIE HACKER Study Number: 1 Patient Name: Saba Licona Status: Outpatient, Ambulatory Age: 64 Sex: Female Medical History Medical History (Updated 11/18/24 @ 08:00 by Dionte Canales MD) Weight loss Class 1 obesity with body mass index (BMI) of 31.0 to 31.9 in adult Macular degeneration Bilateral cataracts Nicotine dependence, cigarettes, uncomplicated Bladder pain Urinary incontinence PONV (postoperative nausea and vomiting) Hx of fracture of tibia Former smoker Arthritis Pulmonary nodule Kidney stones Depression GERD (gastroesophageal reflux disease) PUD (peptic ulcer disease) Hyperlipidemia Hiatal hernia Schatzki's ring Hypertension Asthmatic bronchitis Surgical History (Updated 11/18/24 @ 07:27 by Deyanira Tucker) Hx of tonsillectomy H/O foot surgery H/O endoscopy History of breast lump/mass excision Hx of esophagogastroduodenoscopy Hx of colonoscopy (10/29/24) History of tubal ligation History of hemorrhoidectomy Current (pre-evaluation) Intake/Diet: Route: PO Diet Grade: Regular Liquid Consistencies: Thin Pre-Study Functional Oral Intake Scale (FOIS): 7- Total oral intake with no restrictions Pain: None reported at time of study SUBJECTIVE: Patient is a 64 year old female referred for a modified barium swallow study by Dionte Canales MD from the Gastroenterology office. Patient has history of hypertension, hyperlipidemia, GERD, peptic ulcer, kidney stones, asthma, and pulmonary nodule. She reports difficulty swallowing particular foods, such as pasta, steak, hamburgers, bread, and dry foods. Patient describes feeling food get stuck in the throat to mid-chest area. Today patient reports she ate steak last night and still feels it stuck in her throat right now. She says she feels food in her throat for ?days afterwards.? Patient also reports coughing on liquids and feeling it ?go back up,? at times expectorating it back out, especially carbonated drinks. Patient denies odynophagia. She reports she has been having these symptoms for a ?long time.? Patient did have an UGI 12/24 showing, ?Abnormal appearing distal thoracic esophagus. There is limited distention and mucosal irregularity. There are tertiary contractions of the distal esophagus. There is a small sliding-type hiatal hernia with prominent Schatzki ring. There is stasis of the barium tablet in the distal thoracic esophagus. This probably represents severe esophagitis. It is difficult to exclude a mass. Correlation with endoscopy recommended. Evaluation of the stomach and duodenum is limited but appears unremarkable.? She is followed by Gastroenterology. Oral Motor Exam Facial Symmetry: Symmetrical Mouth Occlusion: Normal Oral-Facial Teeth Characteristics: Partially Missing Oral-Facial Teeth Miscellaneous Observation: Scattered teeth missing central incisors top jaw, missing molars bottom jaw Oral-Facial Lip Pucker Description: Normal Oral-Facial Smile (Lips) Description: Normal Oral-Facial Puff Cheeks Description: Normal Tongue Size: Normal Tongue Excursion Description: Normal Tongue Range of Movement Description: Normal Tongue Speed of Movement Description: Normal Tongue Strength of Movement (against opposing pressure): Normal Tongue Movement Characteristics: Normal/Absent Food and Liquid Trials: Oral Impairment: Lip Closure: 0=No labial escape Oral Impairment: Tongue Control During Bolus Hold: 0=Cohesive bolus between tongue to palatal seal Oral Impairment: Bolus Preparation/Mastication: 1=Slow prolonged chewing/mashing with complete re-collection Oral Impairment: Bolus Transport/Lingual Motion: 0=Brisk tongue motion Oral Impairment: Oral Residue: 1=Trace residue lining oral structures Oral Impairment:Initiation of Pharyngeal Swallow: 0=Bolus head at posterior angle of ramus (first hyoid excursion) Pharyngeal Impairment: Soft Palate Elevation: 0=No bolus between soft palate (SP)/pharyngeal wall (PW) Pharyngeal Impairment: Laryngeal Elevation: 0=Complete superior movement of thyroid cartilage (see description) Pharyngeal Impairment: Anterior Hyoid Excursion: 1=Partial anterior movement Pharyngeal Impairment: Epiglottic Movement: 0=Complete inversion Pharyngeal Impairment: Laryngeal Vestibular Closure:: 0=Complete: no air/contrast in laryngeal vestibule Pharyngeal Impairment: Pharyngeal Stripping Wave: 0=Present: complete Pharyngeal Impairment: Pharyngeal Contraction: Did not test Pharyngeal Impairment: Pharyngoesophageal Segment Openin=Complete distension and complete duration: no obstruction of flow Pharyngeal Impairment: Tongue Base (TB) Retraction: 0=No contrast between tongue base and posterior pharyngeal wall Pharyngeal Impairment: Pharyngeal Residue: 0=Complete pharyngeal clearance Pharyngeal Impairment: Esophageal Clearance Upright Position: Did not test Impressions and Recommendations OBJECTIVE: Time-out: performed at 10:45 Evaluation Start: 10:30; Stop: 10:35 Patient Positioning: Standing Viewing Planes: LATERAL ONLY Contrast: MBSImP? Standardized Protocol using commercially prepared, standardized Barium viscosities, including: Varibar? THIN LIQUID (40% w/v, <15 cps) , Varibar? PUDDING (40% w/v, <9463-9089 cps) , 1/2 Shortbread Cookie (1 x1 x.25 ) [facility] [id number] [facility] Results: Lip closure for intraoral bolus containment resulted in no labial escape. Tongue control during bolus hold maintained a cohesive bolus held between tongue to palate seal. Bolus preparation and mastication resulted in slow, prolonged chewing/mashing but with complete re-collection. Bolus transport/lingual motion was with brisk tongue motion. Oral residue was a trace, lining oral structures. Initiation of the pharyngeal swallow occurred as the bolus head reached the posterior angle of the mandibular ramus. Soft palate elevation resulted in no bolus between the soft palate and the pharyngeal wall. Laryngeal elevation demonstrated complete superior movement of the thyroid cartilage with complete approximation of the arytenoids to the epiglottic petiole. Anterior hyoid excursion demonstrated partial anterior movement. Epiglottic movement resulted in complete inversion. Laryngeal vestibular closure was complete, as indicated by no air or contrast within the laryngeal vestibule at the height of the swallow. Pharyngeal stripping wave was present and complete. Pharyngeal contraction could not be determined due to logistical reasons not related to physiologic impairment. Pharyngoesophageal segment opening was completely distended for complete duration with no obstruction of bolus flow. Tongue base retraction allowed no contrast between the retracted tongue base and the posterior pharyngeal wall. Pharyngeal residue was not present. There was complete pharyngeal clearance. Esophageal clearance in the upright position was complete, with only a coating of contrast, if any. Oral Impairment Score: 1 Pharyngeal Impairment Score: 1 (absence of score, component 13) Esophageal Impairment Score: 0 Laryngeal Penetration and Aspiration: Neither penetration nor aspiration was observed in today's study with Cookie, Pudding-thick, Thin. ASSESSMENT: This exam was performed by the radiologist and the speech pathologist. Patient was standing for lateral view only. She fed herself independently and trialed the following consistencies: -Thin liquid (via individual cup sips) -Puree (mixture barium pudding w/ applesauce) -Regular (Fay Doone cookies coated w/ barium pudding) Adequate lip closure with no anterior loss of bolus. Good tongue control with no premature posterior spillage. Mastication was mildly prolonged, but with good overall recollection. Trace lingual residue cleared with subsequent swallows. Brisk posterior tongue movement. Pharyngeal swallow trigger was timely. No evidence of nasopharyngeal reflux. Complete laryngeal elevation with complete epiglottic inversion and complete laryngeal vestibular closure. No evidence of aspiration or penetration during this exam. Complete pharyngeal clearance. Liquid Intake Recommendation: Thin Dietary Recommendations: Regular Medication Administration: Whole with Liquid Please contact the pharmacy regarding appropriate crushable or liquid drug formulations that are available whenever modified delivery is recommended. Compensatory Strategies Recommended: Sitting Upright (90 deg), Small Bites and Sips, Alternate Liquids/Solids, Rate of Ingestion Change Recommendation for Speech Therapy: NA:Typical Evaluation Text Comment: Intake Recommendations: Route: PO Diet Grade: Regular Liquid Consistencies: Thin Post-Study Functional Oral Intake Scale (FOIS): 7- Total oral intake with no restrictions Patient presented with mildly prolonged period of mastication, likely d/t limited dentition, all other aspects of swallow function were deemed WFL in the oral and pharyngeal phases. No evidence of aspiration or penetration during this exam. Good oral and pharyngeal clearance. Suggested Referrals: The patient might benefit from a referral to: Gastroenterology Indication for Referral: Continue care Therapy Recommendations: Diet modification and speech therapy are not warranted at this time, as MBSS findings were overall unremarkable. Patient is recommended to follow-up w/ Gastroenterology for hx GERD and Schatzki's ring. Clinician - Supplemental, Miscellaneous Communication: It is important to note MBSS objective studies are snapshots in time and Patient function might vary with factors such as time of day or concomitant medical conditions. For this reason, the final treatment plan for this patient should rest with their medical care team. Additional recommendations should be considered with the totality of the Patient in mind. Thank for the opportunity to participate in the care of this patient. If you have any questions about the content of this report, please contact the [facility] at [facility]. Education: Education regarding findings from today's study and plans for therapy were provided to Patient only through Verbal Instruction. Understanding was expressed by the Patient only. County Court Judge Clinician/Clinical Fellow: No Supervisory Statement: N/A Speech Language Pathologist: Dari Coates M.A., CCC-TIE HACKER
== END 2025-01-01 09:24 | disposition home or self-care (01) ==
LOC: HO.XRAY 09:23
PROVIDERS: PCP Internal Medicine; Visit Provider Internal Medicine Gastroenterology
DX: R13.10 Dysphagia, unspecified (principal)
CPT/HCPCS: 74230; 92611

== ENCOUNTER → 2025-01-01 10:30 | Outpatient (BNV) | payer OTHER, SELFPAY | PROVIDERS: PCP Internal Medicine; Visit Provider Radiology Diagnostic Radiology | DX: R13.19 Other dysphagia (principal) | CPT/HCPCS: 74230 ==

== ENCOUNTER 2025-03-07 15:34 | Outpatient (AMB) | payer OTHER, SELFPAY ==
[2025-03-07 15:46] VITALS: BP 177/81; PULSE 98; RESP 18; TEMP 36.4; O2SAT 96; BMI 29.7
--- NOTE | 2025-03-07 15:46 | MHC.PC.OV ---
Vital Signs 03/07/25 15:46 Height 5 ft 1 in Weight 157 lb BMI 29.7 BP 177/81 H Blood Pressure Location Rt brachial Position Sitting Respiration 18 Pulse 98 Pulse Source Pulse Oximeter Temp 97.6 F Temp Source Temporal Artery Scan Pulse Oximetry (%) 96 Oxygen Delivery Method Room Air Intake Visit Reasons: Follow up Drafter Assistant Required: No Accompanied by: Self / Same As Patient Allergies aspirin (ASA) Allergy (Intermediate, Verified 03/10/25 14:09) GI UPSET Medication List - Last Reconciled 03/10/25 by Mackenzie Méndez PA-C albuterol sulfate 90 mcg/actuation 1 inh inhalation Q4-6H amoxicillin-pot clavulanate 875-125 mg 1 tab PO BID 10 days cholecalciferol (vitamin D3) 50 mcg PO DAILY clotrimazole-betamethasone 1-0.05 % 1 appl topical BID PRN codeine-guaifenesin 10-100 mg/5 mL 5 mL PO Q6H PRN cyclobenzaprine 10 mg PO Q8H fluticasone furoate-vilanterol 200-25 mcg/dose (Breo Ellipta) 1 ea inhalation DAILY lisinopril 20 mg PO BID 90 days metformin 500 mg PO BID 90 days pantoprazole 40 mg PO DAILY rosuvastatin 40 mg PO DAILY trazodone 50 mg PO BEDTIME Tobacco use date assessed: 08/27/24 Dental Screening Dental Screen Date: 08/27/24 HPI Follow up HPI Details The patient is a 64-year-old female presenting for a follow-up on metformin for weight management and evaluation of new-onset back pain and cough. She was previously started on metformin for weight loss, not for diabetes, and reports her blood work in October was good, with an A1C of 5.4. She has experienced a weight loss of 10-15 pounds, from 166 pounds down to approximately 157 pounds. The patient reports a history of a fall on cement stairs last winter, which improved with warmer weather. Approximately a week and a half ago, she experienced an acute exacerbation of back spasms, which she attributes to either a strong cough or moving wrong in her sleep. She denies associated urinary incontinence or numbness. In terms of respiratory history, the patient is a long-term smoker and reports her mother has emphysema and COPD. A previous physician mentioned she may have mild emphysema based on a past CT scan, and a repeat CT scan was recommended for November 2023, though the appointment was missed and needs to be rescheduled. She reports that her albuterol inhaler is no longer effective. Her past medical history is significant for hypertension, for which she takes lisinopril, and a history of kidney stones that required removal. She has a history of non-cancerous polyps removed during a colonoscopy. She has had a mammogram but not a bone density scan. Social History - Tobacco Use: Patient is a smoker and has been for many years. - Functional Status: Patient is at home and does not drive. - Exercise: Patient reports intent to begin exercising due to weight loss, but is not currently exercising because of her back pain. [facility] Medical History (Updated 03/10/25 @ 14:12 by Mackenzie Méndez PA-C) Preventative health care Back pain COPD with emphysema Weight loss Class 1 obesity with body mass index (BMI) of 31.0 to 31.9 in adult Macular degeneration Bilateral cataracts Nicotine dependence, cigarettes, uncomplicated Bladder pain Urinary incontinence PONV (postoperative nausea and vomiting) Hx of fracture of tibia Former smoker Arthritis Pulmonary nodule Kidney stones Depression GERD (gastroesophageal reflux disease) PUD (peptic ulcer disease) Hyperlipidemia Hiatal hernia Schatzki's ring Hypertension Asthmatic bronchitis Surgical History Hx of tonsillectomy H/O foot surgery H/O endoscopy History of breast lump/mass excision Hx of esophagogastroduodenoscopy Hx of colonoscopy (10/29/24) History of tubal ligation History of hemorrhoidectomy Family History Mother HTN (hypertension) COPD (chronic obstructive pulmonary disease) Social History Household Members: Spouse Housing: House Alcohol intake: current Alcohol intake frequency: holidays/special occasions only Patient Tobacco Use Status: Current everyday Tobacco user Tobacco use type: Cigarette Cigarettes Per Day: 6 Years Smoked: 40 Substance Use Type: Marijuana service: No Current occupational status: retired Cognitive needs: No Hearing needs: No Vision needs: Yes (rx glasses) Questionnaire PHQ-9 Over the last 2 weeks, how often have you been bothered by any of the following problems? 1. Little interest or pleasure in doing things: not at all 2. Feeling down, depressed, or hopeless: not at all 3. Trouble falling or staying asleep, or sleeping too much: not at all 4. Feeling tired or having little energy: not at all 5. Poor appetite or overeating: not at all 6. Feeling bad about yourself - or that you are a failure or have let yourself or your family down: not at all 7. Trouble concentrating on things, such as reading the newspaper or watching television: not at all 8. Moving or speaking so slowly that other people could have noticed. Or the opposite - being so fidgety or restless that you have been moving around a lot more than usual: not at all 9. Thoughts that you would be better off or of hurting yourself in some way: not at all Total score: 0 Depression Screening Interpretation: Negative Depression Screening Done: Yes Source: Developed by Drs. Rd Knapp, Rebecca Roman, Alvaro Aparicio and colleagues, with an educational neno from [employer]. Thrive Questionnaire Date Thrive assessed: 08/27/24 I am a: Patient What is your living situation today?: I have a steady place to live Within the past 12 months, did the food you bought not last and you didn't have the money to get more?: Never true Within the past 12 months, did you worry whether your food would run out before you got money to buy more?: Never true Do you have trouble paying for medicines?: No Do you have trouble getting transportation to medical appointments?: No Do you have trouble paying your heating and electricity bill?: No Do you have trouble taking care of your child, family member or friend?: No Do you have trouble with day-to-day activities such as bathing, preparing meals, shopping, managing finances, etc.?: No Are you currently unemployed and looking for a job?: No Are you interested in more education?: No Please select the resources that you would like help with: None Currently or been in a relationship where the following occur: No concerns reported THRIVE Score: 0 AUDIT C Alcohol Use Questionnaire (AUDIT-C) 1. How often do you have a drink containing alcohol?: Monthly or less 2. How many drinks containing alcohol do you have on a typical day when you are drinking?: 1 or 2 3. How often do you have six or more drinks on one occasion?: Never Total Score: 1 Score Reviewed/Action Taken: No LAMONT-7 AMB Questionnaire LAMONT-7 Date LAMONT - 7 assessed: 08/27/24 Feeling nervous, anxious, or on edge: 0 = Not at all Not being able to stop or control worryin = Not at all Worrying too much about different things: 0 = Not at all Trouble relaxin = Not at all Being so restless that it is hard to sit still: 0 = Not at all Becoming easily annoyed or irritable: 0 = Not at all Feeling afraid as if something awful might happen: 0 = Not at all Total LAMONT-7 score (0-4 normal; 5-9 mild; 10-14 moderate; 15-21 severe): 0 Source: Developed by Drs. Rd Knapp, Rebecca Roman, Alvaro Aparicio and colleagues, with an educational neno from [employer]. LAMONT-7 Assessment Billing LAMONT-7 Assessment Tool: LAMONT-7 Assessment 25599 Review of Systems Const Details: - Constitutional: Denies fevers. - Cardiovascular: Denies chest pain. - Respiratory: Reports cough. - Musculoskeletal: Reports back pain and muscle spasms. - Genitourinary: Reports frequent urination but denies symptoms of a urinary tract infection. - Neurological: Denies numbness. All systems reviewed & are unremarkable except as noted in HPI and below Physical exam (Primary Care) Vital Signs: Last Vital Signs Temp 97.6 F 03/07/25 15:46 Pulse 98 03/07/25 15:46 Resp 18 03/07/25 15:46 BP 177/81 H 03/07/25 15:46 Pulse Ox 96 03/07/25 15:46 Oxygen Delivery Method Room Air 03/07/25 15:46 Care Plan Goal for BP management: <140/90 will increase lisinopril from 20 mg to 20 mg b.i.d. BMI result Body Mass Index 29.7 BMI Assessment/Plan discussion: High BMI High, discussed plan: lifestyle, weight reduction, dietary, physical activity, alcohol moderation and other Tobacco/Smoking Status: Tobacco use Status Tobacco use date assessed 08/27/24 03/07/25 15:51 Patient Tobacco Use Status Current everyday Tobacco 03/07/25 15:51 Tobacco use type Cigarette 03/07/25 15:51 PHQ-9: PHQ-9 Score PHQ-9: Total score 0 03/07/25 15:51 Depression Screening Interpretation: Negative Thrive Assessment: Date of Thrive Assessment Date Thrive assessed 08/27/24 03/07/25 15:51 Currently or been in a relationship where the following occur: No concerns reported Const Other: Appearance: Alert. Oriented X3. No acute distress. Head: Normal external exam. Normocephalic. Atraumatic. Eyes: Pupils are equal, round, and reactive to light. Extraocular movements intact. Conjunctiva and sclera normal. Eyelids normal. Ears: External auditory canal normal. Tympanic membranes normal. Throat: Pharynx normal. Uvula midline. Moist mucous membranes. Neck: Normal inspection. Neck supple. Full range of motion. No adenopathy. Thyroid Normal. No meningeal signs. No neck mass noted. Cardiovascular: Normal heart rate and rhythm. Heart sound normal. No murmurs noted. Pulses normal throughout. Blood pressure is high. Respiratory: No respiratory distress. Painless inspiration. Breath sounds slightly congested. No wheezes/rales/rhonchi noted. Chest nontender. No accessory muscle usage noted or decreased air movement noted. Abdomen: Soft and nontender. Bowel sounds normal in all 4 quadrants. No distention noted. No organomegaly noted. No visible injury noted. Back: No costovertebral angle tenderness. Full range of motion noted. Some pain noted when coughing or moving wrong. Skin: Skin warm and dry. Normal skin color. Normal skin turgor. No rashes/lesions/lacerations noted. Extremities: No lower extremity edema. Extremities exhibit normal range of motion. Extremities nontender. Neuro: Oriented X 3. No motor deficit. No sensory deficit. Reflexes normal. Results Reviewed Results Reviewed: - Labs (October): Hemoglobin A1c was 5.4. - Labs (October): Urinalysis showed bacteria, patient was asymptomatic. - Imaging: A prior CT scan suggested mild emphysema. Coding Level of Care Code Est Pt Level 4 (41808) Complex EM visit Add On G2211 Diagnoses Class 1 obesity with body mass index (BMI) of 31.0 to 31.9 in adult E66.811; Z68.31 Back pain M54.9 Hypertension I10 COPD with emphysema J43.9 [facility] health care Z00.00 Additional Codes LAMONT-7 Assessment Billing - LAMONT-7 Assessment Tool: LAMONT-7 Assessment 41798 ([id number]) Time Spent (min) 60 Assessment & Plan Assessment & Plan (1) Class 1 obesity with body mass index (BMI) of 31.0 to 31.9 in adult: Code(s): E66.811 - Obesity, class 1; Z68.31 - Body mass index [BMI] 31.0-31.9, adult Category: Medical Plan: The patient has had a successful 10-15 pound weight loss on metformin. The plan is to increase her metformin dose to 500 mg twice a day, with the potential to increase further to 1000 mg twice a day in one month. A 90-day prescription will be sent to [facility]. (2) Back pain: Code(s): M54.9 - Dorsalgia, unspecified Category: Medical Plan: The patient is experiencing acute back spasms, possibly exacerbated by coughing. A muscle relaxant will be prescribed and sent to [facility]. She was advised not to drink or drive while on it, and to separate it from Robitussin with Codeine due to increased sedation. (3) Hypertension: Code(s): I10 - Essential (primary) hypertension Category: Medical Plan: The patient's blood pressure has been climbing and was elevated today. The plan is to increase her lisinopril from 20 mg daily to 20 mg twice daily. The new prescription will be sent to [facility]. Follow-up is scheduled in approximately 3 months, after the holidays, to re-check her blood pressure. (4) COPD with emphysema: Code(s): J43.9 - Emphysema, unspecified Category: Medical Plan: The patient, a long-term smoker with a history of emphysema noted on a prior scan, presents with a cough and finds her albuterol ineffective. She will be treated for a likely acute bronchitis with Augmentin for 10 days and Robitussin with Codeine for cough suppression, with prescriptions sent to [facility]. For long-term COPD management, she will be started on Breo Ellipta inhaler, one puff daily, with the prescription sent to [facility]. The patient was counseled to take the inhaler in the morning and rinse her mouth after use. A referral to Pulmonology will be placed for further evaluation and management. (5) Preventative health care: Code(s): Z00.00 - Encounter for general adult medical examination without abnormal findings Category: Medical Plan: Given the patient's age and history of a fall with back pain, an order for a bone density scan will be placed to screen for osteoporosis and osteopenia. The patient will be contacted by the imaging facility to schedule the appointment and will arrange her own transportation. Plan Plan Patient was informed and verbally consented to the use of an ambient scribe for clinic note documentation during this visit. 1. Overweight The patient has had a successful 10-15 pound weight loss on metformin. The plan is to increase her metformin dose to 500 mg twice a day, with the potential to increase further to 1000 mg twice a day in one month. A 90-day prescription will be sent to [facility]. 2. Acute Back Pain The patient is experiencing acute back spasms, possibly exacerbated by coughing. A muscle relaxant will be prescribed and sent to [facility]. She was advised not to drink or drive while on it, and to separate it from Robitussin with Codeine due to increased sedation. 3. Hypertension The patient's blood pressure has been climbing and was elevated today. The plan is to increase her lisinopril from 20 mg daily to 20 mg twice daily. The new prescription will be sent to [facility]. Follow-up is scheduled in approximately 3 months, after the holidays, to re-check her blood pressure. 4. Chronic Obstructive Pulmonary Disease With Acute Bronchitis The patient, a long-term smoker with a history of emphysema noted on a prior scan, presents with a cough and finds her albuterol ineffective. She will be treated for a likely acute bronchitis with Augmentin for 10 days and Robitussin with Codeine for cough suppression, with prescriptions sent to [facility]. For long-term COPD management, she will be started on Breo Ellipta inhaler, one puff daily, with the prescription sent to [facility]. The patient was counseled to take the inhaler in the morning and rinse her mouth after use. A referral to Pulmonology will be placed for further evaluation and management. 5. Preventative Care: Osteoporosis Screening Given the patient's age and history of a fall with back pain, an order for a bone density scan will be placed to screen for osteoporosis and osteopenia. The patient will be contacted by the imaging facility to schedule the appointment and will arrange her own transportation. I discussed the patient's successful weight loss with metformin and the plan to increase the dose to 500 mg twice daily to continue her progress, with a further increase in one month if tolerated. I explained that her new back pain and spasms would be treated with a muscle relaxant, and I cautioned her about the increased sleepiness if taken with the Robitussin with Codeine. Regarding her respiratory symptoms and smoking history, I explained the diagnosis of COPD and likely emphysema, noting that her rescue inhaler is no longer sufficient. I recommended starting a daily maintenance inhaler, Breo Ellipta, to be used in the morning, and stressed the importance of rinsing her mouth after use to prevent thrush. I informed her that I am placing a referral to a national dedicated truck driver for specialist care. We also addressed her elevated blood pressure, and I recommended increasing her lisinopril dose to twice daily, advising her to monitor her blood pressure at home. We discussed the need for a bone density scan to screen for osteoporosis due to her risk factors. We agreed on a follow-up appointment in approximately three months, after the holidays. Orders: Orders XR DEXA axial skeleton 03/07/25 M81.0 - Age-related osteoporosis without current pathological fracture Referrals Pulmonology Referral J43.9 - Emphysema, unspecified Medications: New fluticasone furoate-vilanterol 200-25 mcg/dose (Breo Ellipta) 1 inh inhalation DAILY 60 ea 3RF F17.210 - Nicotine dependence, cigarettes, uncomplicated, J43.9 - Emphysema, unspecified amoxicillin-pot clavulanate 875-125 mg 1 tab PO BID 20 tabs 0RF 10 days codeine-guaifenesin 10-100 mg/5 mL 5 mL PO Q6H PRN 120 mL 0RF cough fluticasone furoate-vilanterol 200-25 mcg/dose (Breo Ellipta) 1 inh inhalation DAILY 60 ea 3RF F17.210 - Nicotine dependence, cigarettes, uncomplicated, J43.9 - Emphysema, unspecified cyclobenzaprine 10 mg PO Q8H 30 tabs 1RF Changed From metformin 500 mg PO DAILY 90 tabs 1RF To metformin 500 mg PO BID 180 tabs 1RF 90 days From lisinopril mg PO To lisinopril 20 mg PO BID 180 tabs 3RF 90 days Patient Instructions: - For your weight loss, start taking your Metformin 500 mg pill twice a day. - For your high blood pressure, increase your Lisinopril 20 mg to twice a day. - For your cough and possible chest infection, take the Augmentin antibiotic twice a day for 10 days. - You can take the Robitussin with Codeine to help with your cough and to help you sleep. - For your back pain, you can take the prescribed muscle relaxant. - Be aware that the muscle relaxant and the cough syrup with codeine can both make you very sleepy, so try to take them at separate times. - Start using the Breo Ellipta inhaler every day for your breathing. - Use one puff in the morning and be sure to rinse your mouth with water after you use it. - An order for a bone density scan will be sent. - A referral will be made for you to see a lung specialist ([facility]); their office will call you to make an appointment. - Please try to monitor your blood pressure at home. - Please schedule a follow-up visit in about 3 months, after the holidays.
== END 2025-03-07 16:17 | disposition home or self-care (01) ==
PROVIDERS: PCP Physician Assistant Medical; Visit Provider Physician Assistant Medical
DX: E66.811 Obesity, class 1 (principal); Z68.31 Body mass index [BMI] 31.0-31.9, adult; M54.9 Dorsalgia, unspecified; I10 Essential (primary) hypertension; J43.9 Emphysema, unspecified; Z00.00 Encounter for general adult medical examination without abnormal findings

== ENCOUNTER → 2025-03-07 15:34 | Outpatient (BNVA) | payer OTHER, SELFPAY | PROVIDERS: PCP Internal Medicine; Visit Provider Physician Assistant Medical | DX: Z00.00 Encounter for general adult medical examination without abnormal findings (principal); I10 Essential (primary) hypertension; F17.210 Nicotine dependence, cigarettes, uncomplicated; E66.811 Obesity, class 1; M54.9 Dorsalgia, unspecified; J43.9 Emphysema, unspecified; J20.9 Acute bronchitis, unspecified; Z68.31 Body mass index [BMI] 31.0-31.9, adult; Z79.84 Long term (current) use of oral hypoglycemic drugs; Z79.899 Other long term (current) drug therapy | CPT/HCPCS: 96127 ==

== ENCOUNTER 2025-04-01 09:40 | Outpatient (AMB) | payer OTHER, SELFPAY ==
--- NOTE | 2025-04-01 09:43 | AM.OFFWIN_ITS ---
Intake Vital Signs 04/01/25 09:44 Height 5 ft 1 in Weight 157 lb BMI 29.7 BP 118/76 Blood Pressure Location Rt brachial Position Sitting Pulse 104 H Pulse Source Pulse Oximeter Temp 97.7 F Temp Source Oral Pulse Oximetry (%) 95 Oxygen Delivery Method Room Air Intake Visit Reasons: EP Congestion, cough Intake Note: Patient presents c/o chest congestion, sinus congestion, cough x1 month Patient Tobacco Use Status: Current everyday Tobacco user Allergies aspirin (ASA) Allergy (Intermediate, Verified 04/01/25 09:48) GI UPSET amoxicillin Allergy (Mild, Verified 04/01/25 09:48) vaginal irritation HPI HPI Comments History of Present Illness Details History - The patient is a 64-year-old female pr esenting with symptoms of postnasal drip and persistent cough. - Symptoms began around February 20 significant wheezing and gurgling sounds noted. - Initial treatment included amoxicillin , a new inhaler, and cough medicine with codeine, which were ineffective. - The patient experiences a constant natali al drip and cough, with mucus production described as thick and unpleasant. - The patient has a history of sinus inf ections and smoking, which may contribute to the current symptoms. - The patient reports difficulty sleepin g due to the cough and congestion, and has previously experienced pneumonia. - She has no associated MEYERS, ear pain, so re throat, fever, or chills. - She has no sick contacts. - She denies recent travel. - Has an upcoming appt with pulmonary in Jun and she has not seen an ENT. Physical Exam General: Cooperative, healthy appearing, comfortable and no acute distress Orientation/consciousness: Patient oriented x3 Limitations: No limitations Head: Normal to inspection Ears: Hearing grossly normal bilaterally, external ears normal and TM's normal bilaterally Nose: Normal external nose present, normal nares present, and no nasal discharge present. Face and sinus: Sinuses nontender to palpation. Mouth: Normal oral and palatal mucosa present and moist mucous membranes noted. Throat: Tonsils normal. Uvula is midline. Posterior oropharynx with erythema and no exudates. Eyes: Appearance normal, both eyes and all related structures Neck: Normal visual inspection, full ROM. No lymphadenopathy noted. Respiratory: Clear to auscultation bilaterally. Normal respiratory effort, able to speak in complete sentences. No respiratory distress, not tachypneic, no tripod positioning and no use of accessory muscles. Cardiovascular: Regular rate and rhythm. Normal S1 and S2 Skin: No rashes or lesions noted Patient was informed and verbally consented to the use of an ambient scribe for clinic note documentation during this visit [facility] Medical History (Updated 03/10/25 @ 14:12 by Mackenzie Méndez PA-C) Preventative health care Back pain COPD with emphysema Weight loss Class 1 obesity with body mass index (BMI) of 31.0 to 31.9 in adult Macular degeneration Bilateral cataracts Nicotine dependence, cigarettes, uncomplicated Bladder pain Urinary incontinence PONV (postoperative nausea and vomiting) Hx of fracture of tibia Former smoker Arthritis Pulmonary nodule Kidney stones Depression GERD (gastroesophageal reflux disease) PUD (peptic ulcer disease) Hyperlipidemia Hiatal hernia Schatzki's ring Hypertension Asthmatic bronchitis Surgical History Hx of tonsillectomy H/O foot surgery H/O endoscopy History of breast lump/mass excision Hx of esophagogastroduodenoscopy Hx of colonoscopy (10/29/24) History of tubal ligation History of hemorrhoidectomy Family History Mother HTN (hypertension) COPD (chronic obstructive pulmonary disease) Social History Household Members: Spouse Housing: House Alcohol intake: current Alcohol intake frequency: holidays/special occasions only Patient Tobacco Use Status: Current everyday Tobacco user Tobacco use type: Cigarette Cigarettes Per Day: 6 Years Smoked: 40 Substance Use Type: Marijuana service: No Current occupational status: retired Cognitive needs: No Hearing needs: No Vision needs: Yes (rx glasses) Review of Systems Const All systems reviewed & are unremarkable except as noted in HPI and below Physical Exam Vital Signs: Last Vital Signs Temp 97.7 F 04/01/25 09:44 Pulse 104 H 04/01/25 09:44 BP 118/76 04/01/25 09:44 Pulse Ox 95 04/01/25 09:44 Oxygen Delivery Method Room Air 04/01/25 09:44 BMI result Body Mass Index 29.7 Assessment & Plan Assessment & Plan (1) Congestion of upper airway: Code(s): J98.8 - Other specified respiratory disorders Plan Most likely allergic rhinitis vs URI vs viral illness vs sinusitis plan - Prescribed Flonase and Cetirizine with decongestant to manage symptoms. - Recommended follow-up with ENT or talent sourcing specialist if symptoms persist. - Consideration for additional diagnostic testing to rule out other causes. - Advised to consider smoking cessation to improve respiratory health. - Continue with inhalers - tylenol or motrin as needed for pain or fever - will call her with the results - follow up with PCP Orders: Orders SARS-CoV2/FLU/RSV Today R09.89 - Other specified symptoms and signs involving the circulatory and respiratory systems Medications: New fluticasone propionate 50 mcg/actuation administer into each nostril 1 spray intranasal Q12H 16 grams 0RF benzonatate 100 mg PO bid-tid PRN 21 caps 0RF Cough 7 days cetirizine-pseudoephedrine 5-120 mg ER 1 tab PO BID 14 tabs 0RF 7 days Refilled albuterol sulfate 90 mcg/actuation 1 inh inhalation Q4-6H 8.5 grams 3RF Coding Level of Care Code Est Pt Level 3 (69755) Diagnoses Congestion of upper airway J98.8
[2025-04-01 09:44] VITALS: BP 118/76; PULSE 104; TEMP 36.5; O2SAT 95; BMI 29.7
== END 2025-04-01 10:35 | disposition home or self-care (01) ==
PROVIDERS: PCP Physician Assistant Medical; Visit Provider Physician Assistant Medical
DX: J98.8 Other specified respiratory disorders (principal)

== ENCOUNTER 2025-04-01 09:40 | Outpatient (REF) | payer OTHER, SELFPAY ==
[2025-04-01 14:23] LABS: Resp Syncy Virus RNA Qual PCR NEGATIVE (Negative); SARS COV2 PCR INHOUSE NEGATIVE (Negative)
== END 2025-04-01 09:41 | disposition home or self-care (01) ==
LOC: HO.LNP 09:40
PROVIDERS: PCP Physician Assistant Medical; Visit Provider Physician Assistant Medical
DX: R09.89 Other specified symptoms and signs involving the circulatory and respiratory systems (principal); J98.8 Other specified respiratory disorders; R05.8 Other specified cough; F17.210 Nicotine dependence, cigarettes, uncomplicated
CPT/HCPCS: 87637